=== PATIENT | female | born 1955 | race Caucasian/White ===

== ENCOUNTER → 2020-06-18 | Day surgery (SDC) | payer MEDICARE, OTHER ==
[2020-06-13 11:55] LABS: BASOPHILS % 0.4 % (0.0-1.0); EOSINOPHILS # (AUTO) 0.2 (0.0-0.4); EOSINOPHILS % 2.3 % (0.0-6.0); HEMATOCRIT 32.1 % (34.2-44.1); LYMPHOCYTES # (AUTO) 1.4 (1.0-3.2); LYMPHOCYTES % 18.1 % (18.0-39.1); MEAN CORPUSCULAR HEMOGLOBIN 29.4 pg (28-32); MEAN CORPUSCULAR HGB CONC 31.2 g/dL (31-35); MEAN CORPUSCULAR VOLUME 94.4 fL (81-99); MONOCYTES # (AUTO) 0.4 (0.2-0.8); MONOCYTES % 4.8 % (4.4-11.3); NEUTROPHILS # (AUTO) 5.7 (2.1-6.9); PLATELET COUNT 130 x10e3/uL (140-360); RED CELL DISTRIBUTION WIDTH 15.2 % (11.7-14.4)
[2020-06-13 12:12] LABS: CALCIUM 8.7 mg/dL (8.4-10.2); CREATININE, SERUM 2.32 mg/dL (0.57-1.11)
--- NOTE | 2020-06-13 13:15 | Diagnostic Imaging Report ---
EXAM: CHEST 2 VIEWS DATE: 06/13/2020 12:30 PM INDICATION: Preoperative evaluation COMPARISON: None FINDINGS: The trachea is midline. The lungs are symmetrically expanded without evidence for large focal consolidation, pneumothorax, or significant pleural effusion. The cardiomediastinal silhouette and pulmonary vasculature are within normal limits. Cervical fusion hardware noted. No acute osseous abnormality is identified. Multiple surgical clips noted overlying the left axilla. The surrounding soft tissues are unremarkable. IMPRESSION: No acute cardiopulmonary process identified. Signed by: Dr. Koby Chou MD on 06/13/2020 1:12 PM
--- NOTE | 2020-06-13 13:21 | Diagnostic Imaging Report ---
EXAM: ABDOMEN-1VIEW (KUB) DATE: 06/13/2020 12:30 PM INDICATION: Preoperative evaluation COMPARISON: None FINDINGS: Bowel gas pattern is nonobstructive. Bowel gas partially obscures renal shadows limiting evaluation. There is a 10 mm stone identified projecting over the mid/inferior left kidney. There are additional adjacent punctate calcific densities which may represent smaller renal calculi. Two calcific densities identified projecting over the right kidney measuring up to 6 mm likely reflecting renal calculi. No acute osseous abnormality is identified. IMPRESSION: Bilateral renal calculi as detailed above. Signed by: Dr. Koby Chou MD on 06/13/2020 1:17 PM
[~2020-06-18] MED LIST: ASPIRIN81 MG PO; B&O 60MG R/S 60 MG SUPP PR ONE; CITALOPRAM HBR20 MG PO; DIAZEPAM5 MG PO; FLUCONAZOLE 200 MG/100 ML 100 ML IV ONE; GENTAMICIN 80MG/NS 100 ML 100 ML IV ONE; GLIMEPIRIDE2 MG PO; INVOKANA PO; IOPAMIDOL 300MG/ML 50ML INFUS..BTL IV ONE; LEVEMIR FL100 UNIT/1 SC; LEVOTHYROXINE50 MCG PO; LIDOCAINE HCL 2% JELLY 5 ML TUBE ONE; LIDOCAINE HCL 2% LOCAL INJ 5 ML SDV VIAL INJ ONE; METFORMIN HCL500 MG PO; METOCLOPRAMIDE HCL 10 MG/2ML VIAL ONE; MIDAZOLAM HCL 2 MG/2 ML VIAL ONE; MULTI-VITAMIN1 EACH PO; ONDANSETRON HCL INJ 2MG/ML 2ML 2 MG/ML VIAL ONE; PROPOFOL IV EMULSION 10 MG/ML 20 ML VIAL ONE; SEVOFLURANE INHAL SOLN 250 ML PEN BTL ONE; SODIUM CHLORIDE 0.9% 50ML 50 ML ONE; ULTRAM50 MG PO
[2020-06-18 10:41] VITALS: BP 149/70
--- NOTE | 2020-06-18 23:23 | Operative Report ---
DATE OF PROCEDURE: 06/18/2020 SURGEON: Harshad Tucker MD PREOPERATIVE DIAGNOSES: 1. Nephrolithiasis. 2. Urinary tract infections. 3. Hematuria. 4. Chronic renal insufficiency. 5. Potential for left renal colic. POSTOPERATIVE DIAGNOSES: 1. Nephrolithiasis. 2. Urinary tract infections. 3. Hematuria. 4. Chronic renal insufficiency. 5. Potential for left renal colic. 6. Grade 1 cystocele. 7. Grade 1 rectocele. 8. Atrophic (senile) vaginitis. OPERATIONS PERFORMED: Note these were all staged procedures as part of multistep, multistaged broad process of managing the patient's urolithiasis. 1. Left-sided extracorporeal shockwave lithotripsy (separate procedure performed for the nephrolithiasis). 2. Cystourethroscopy with bilateral ureteral catheterization and retrograde ureteropyelography (separate procedure performed for hematuria and urinary tract infections and renal insufficiency). 3. Interpretation of retrograde ureteropyelography. 4. Supervision of fluoroscopy, no radiologist present. 5. Cystourethroscopy with insertion of left indwelling ureteral stent (separate procedure performed for relieving expected renal colic). 6. Pelvic examination under anesthesia. ANESTHESIA: General. COMPLICATIONS: None. CLINICAL SUMMARY: Keya Carrillo is a 64-year-old woman with bilateral nephrolithiasis. She has a large lower pole stone on the left hand side. She is brought for the above procedures. She is aware of the risks of bleeding, infection, injury to adjacent structures, need for additional procedures, and she elected to proceed. PROCEDURE IN DETAIL: Informed consent was verified. Keya Carrillo was properly identified, taken to the operating room, placed on the lithotripsy table in the supine position. Anesthesia was uneventfully begun. The patient's left nephrolithiasis was localized with biplanar fluoroscopy. A total of 3000 shocks were delivered with excellent fragmentation noted. The patient was then carefully and gently repositioned in the dorsal lithotomy position with all pressure points well padded. Her genitalia were prepared and draped in usual sterile fashion. The cystoscope sheath with obturator in place was atraumatically inserted into the patient's urethra and the bladder was drained. The urine was slightly cloudy and it was sent for a catheterized culture and sensitivity. A ureteral catheter was used to cannulate each ureter and retrograde ureteral pyelograms performed. With cystoscopic and fluoroscopic guidance, a left-sided indwelling ureteral stent was then placed. It was coiled to the patient's kidneys as well as the patient's bladder. The retaining suture was cut short. Interpretation of retrograde ureteropyelography, contrast was instilled in retrograde fashion bilaterally. On the right hand side, there were stones that we could visualize. These were not obstructing. There was no hydronephrosis. Left hand side exhibited a very large stone that was now fragmented. There were filling defects in the lower pole calyx. The stent was in good position, coiled to the patient's kidney as well as the patient's bladder at the end of the case. The patient's bladder was drained. Cystoscope was withdrawn. Pelvic examination revealed a grade 1 cystocele, grade 1 rectocele. There was atrophic (senile) vaginitis. No abnormal palpable pelvic masses could be appreciated. The patient was then uneventfully reversed from anesthesia and taken to recovery room in stable condition. There were no complications to the procedure. She tolerated the procedure well. Plans will be to return the patient to the operating room in several weeks to perform right extracorporeal shockwave lithotripsy in conjunction with a left ureteroscopy with holmium laser standby. Harshad Tucker MD [place]/MODL /[id number] cc: Agustin Salcido MD
== END | disposition home or self-care (01) ==
LOC: OR 05:59
PROVIDERS: ATTEND Urology
DX: N20.0 Calculus of kidney (principal); N39.0 Urinary tract infection, site not specified; E11.22 Type 2 diabetes mellitus with diabetic chronic kidney disease; I12.9 Hypertensive chronic kidney disease with stage 1 through stage 4 chronic kidney disease, or unspecified chronic kidney disease; N18.9 Chronic kidney disease, unspecified; N81.10 Cystocele, unspecified; N81.6 Rectocele; N95.2 Postmenopausal atrophic vaginitis; E03.9 Hypothyroidism, unspecified; E66.9 Obesity, unspecified; F32.9 Major depressive disorder, single episode, unspecified; F41.9 Anxiety disorder, unspecified; Z88.6 Allergy status to analgesic agent; Z88.1 Allergy status to other antibiotic agents; Z88.0 Allergy status to penicillin; Z01.810 Encounter for preprocedural cardiovascular examination; Z01.812 Encounter for preprocedural laboratory examination; Z01.818 Encounter for other preprocedural examination; Z11.59 Encounter for screening for other viral diseases; Z79.4 Long term (current) use of insulin; Z79.82 Long term (current) use of aspirin; Z79.84 Long term (current) use of oral hypoglycemic drugs; Z85.3 Personal history of malignant neoplasm of breast; Z87.891 Personal history of nicotine dependence
CPT/HCPCS: 36415; 50590; 71046; 74018; 80048; 82948; 85025; 87086; 93005; C1758; C2617; J1450; J1580; J2001; J2250; J2405; J2765; U0002

== ENCOUNTER → 2020-08-15 | Day surgery (SDC) | payer MEDICARE, OTHER ==
[2020-08-12 16:04] LABS: BASOPHILS % 0.3 % (0.0-1.0); EOSINOPHILS # (AUTO) 0.1 (0.0-0.4); EOSINOPHILS % 2.1 % (0.0-6.0); HEMATOCRIT 28.6 % (34.2-44.1); HEMOGLOBIN 8.8 g/dL (12.0-16.0); LYMPHOCYTES # (AUTO) 1.6 (1.0-3.2); LYMPHOCYTES % 24.6 % (18.0-39.1); MEAN CORPUSCULAR HEMOGLOBIN 28.9 pg (28-32); MEAN CORPUSCULAR HGB CONC 30.8 g/dL (31-35); MEAN CORPUSCULAR VOLUME 93.8 fL (81-99); MONOCYTES # (AUTO) 0.3 (0.2-0.8); MONOCYTES % 5.4 % (4.4-11.3); NEUTROPHILS # (AUTO) 4.3 (2.1-6.9); NEUTROPHILS % 67.4 % (38.7-80.0); PLATELET COUNT 161 x10e3/uL (140-360); RED BLOOD COUNT 3.05 x10e6/uL (3.6-5.1); RED CELL DISTRIBUTION WIDTH 15.9 % (11.7-14.4)
[2020-08-12 16:30] LABS: ANION GAP 12.6 mmol/L (8-16); CALCIUM 8.3 mg/dL (8.4-10.2); CREATININE, SERUM 3.39 mg/dL (0.57-1.11); POTASSIUM 3.6 mmol/L (3.5-5.1)
[~2020-08-15] MED LIST changes: +DEXAMETHASONE SOD PHOS INJ 4 MG/ML VIAL ONE; +FENTANYL CITRATE/PF 100MCG/2 ML INJ ONE; -FLUCONAZOLE 200 MG/100 ML 100 ML IV ONE; -GENTAMICIN 80MG/NS 100 ML 100 ML IV ONE; +GENTAMICIN 80MG/NS 100 ML 200 ML IV ONE; -LIDOCAINE HCL 2% JELLY 5 ML TUBE ONE; +OXYBUTYNIN CHLOR5 MG PO; -SODIUM CHLORIDE 0.9% 50ML 50 ML ONE; +[UNRECOGNIZED DRUG - CODE]
[2020-08-15 10:15] VITALS: BP 124/64
== END | disposition home or self-care (01) ==
LOC: OR 06:06
PROVIDERS: ATTEND Urology
DX: N20.0 Calculus of kidney (principal); N17.9 Acute kidney failure, unspecified; E11.22 Type 2 diabetes mellitus with diabetic chronic kidney disease; I12.9 Hypertensive chronic kidney disease with stage 1 through stage 4 chronic kidney disease, or unspecified chronic kidney disease; N18.9 Chronic kidney disease, unspecified; N13.8 Other obstructive and reflux uropathy; N13.30 Unspecified hydronephrosis; N81.89 Other female genital prolapse; N81.10 Cystocele, unspecified; N81.6 Rectocele; N95.2 Postmenopausal atrophic vaginitis; R80.9 Proteinuria, unspecified; R35.1 Nocturia; I49.3 Ventricular premature depolarization; K21.9 Gastro-esophageal reflux disease without esophagitis; E66.9 Obesity, unspecified; Z88.6 Allergy status to analgesic agent; Z88.1 Allergy status to other antibiotic agents; Z88.0 Allergy status to penicillin; Z01.812 Encounter for preprocedural laboratory examination; Z01.818 Encounter for other preprocedural examination; Z11.59 Encounter for screening for other viral diseases; Z79.84 Long term (current) use of oral hypoglycemic drugs; Z79.82 Long term (current) use of aspirin; Z79.4 Long term (current) use of insulin; Z68.41 Body mass index [BMI] 40.0-44.9, adult; Z84.1 Family history of disorders of kidney and ureter
CPT/HCPCS: 36415 ×2; 50590; 52332; 52351; 74018; 80048; 82948; 85025; 87086; C1758; C1769; C2617; J1100; J1580; J2001; J2250; J2405; J2704; J2765; J3010; Q9967; U0002

== ENCOUNTER → 2020-09-19 | Day surgery (SDC) | payer MEDICARE ==
[2020-09-16 14:32] LABS: BASOPHILS % 0.2 % (0.0-1.0); EOSINOPHILS % 0.5 % (0.0-6.0); HEMATOCRIT 29.5 % (34.2-44.1); HEMOGLOBIN 9.3 g/dL (12.0-16.0); LYMPHOCYTES # (AUTO) 1.2 (1.0-3.2); MEAN CORPUSCULAR HEMOGLOBIN 28.2 pg (28-32); MEAN CORPUSCULAR HGB CONC 31.5 g/dL (31-35); MEAN CORPUSCULAR VOLUME 89.4 fL (81-99); MONOCYTES # (AUTO) 0.4 (0.2-0.8); MONOCYTES % 4.3 % (4.4-11.3); NEUTROPHILS % 80.8 % (38.7-80.0); PLATELET COUNT 231 x10e3/uL (140-360); RED CELL DISTRIBUTION WIDTH 15.7 % (11.7-14.4)
[2020-09-16 14:49] LABS: ANION GAP 14.4 mmol/L (8-16); CALCIUM 8.7 mg/dL (8.4-10.2); CREATININE, SERUM 4.59 mg/dL (0.57-1.11); POTASSIUM 3.4 mmol/L (3.5-5.1)
[~2020-09-19] MED LIST changes: +FLUCONAZOLE 200 MG/100 ML 100 ML IV ONE; +GENTAMICIN 80MG/NS 100 ML 100 ML IV ONE; -GENTAMICIN 80MG/NS 100 ML 200 ML IV ONE; +GLYCOPYRROLATE INJ 0.2 MG/ML VIAL ONE; +INSULIN REGULAR, HUMAN 100 UNIT/1 ML 3ML VIAL ONE; -METOCLOPRAMIDE HCL 10 MG/2ML VIAL ONE; +NEOSTIGMINE 1 MG/ML 10ML VIAL ONE; +ROCURONIUM BROMIDE 10 MG/ML 5ML VIAL IV ONE; +SUCCINYLCHOLINE CHLORIDE 20 MG/ML 10ML VIAL ONE; +VANCOMYCIN 1GM/NS 250 ML 250 ML ONE
--- NOTE | 2020-09-19 16:52 | Diagnostic Imaging Report ---
OR Fluoroscopy: IMPRESSION: Fluoroscopy service provided in the OR. Interpretation not requested. Signed by: Max Camacho MD on 09/19/2020 4:49 PM
[2020-09-19 17:40] VITALS: BP 130/78
--- NOTE | 2020-09-20 17:23 | Operative Report ---
DATE OF PROCEDURE: 09/19/2020 SURGEON: Harshad Tucker MD PREOPERATIVE DIAGNOSES: 1. Bilateral hydronephrosis. 2. Bilateral indwelling ureteral stents. POSTOPERATIVE DIAGNOSES: 1. Bilateral hydronephrosis. 2. Bilateral indwelling ureteral stents. 3. Grade 1 cystocele. 4. Grade 1 rectocele. 5. Atrophic (senile) vaginitis. OPERATIONS PERFORMED: Note these were all staged procedures as part of multi-staged and multi-step process of managing the patient's urolithiasis: 1. Cystourethroscopy with complicated removal of bilateral indwelling ureteral stents (separate procedure performed for the diagnosis of stents done with separate scope). 2. Bilateral semi-rigid and flexible ureteral pyeloscopy (separate procedure performed to evaluate the hydronephrosis). 3. Radiological services for supervision and interpretation of ureteroscopy, no radiologist present. 4. Interpretation of retrograde ureteropyelography, no radiologist present. 5. Supervision of fluoroscopy, no radiologist present. 6. Pelvic examination under anesthesia. ANESTHESIA: General. COMPLICATIONS: None. CLINICAL SUMMARY: Keya Carrillo is a 65-year-old woman with prior urolithiasis and indwelling stents. She has had progressive renal failure. She has had urinary tract infection and she has been on culture specific antibiotics. She was brought for the above procedures. She is aware of the risks of bleeding, infection, injury to adjacent structures, need for additional procedures, and elected to proceed. OPERATIVE PROCEDURE IN DETAIL: Informed consent verified. Keya Carrillo was properly identified, taken to the operating room, placed on the cystoscopy table in supine position. Anesthesia was uneventfully begun. The patient was then carefully gently repositioned in dorsal lithotomy position. All pressure points were well padded. Her genitalia were prepared and draped in usual sterile fashion. The cystoscope sheath with obturator in place was atraumatically inserted into the patient's urethra and the bladder was drained, it contained cloudy urine and this was sent for culture and sensitivity. Panendoscopy of the bladder revealed mild inflammation. There was cloudy material within the bladder consistent with Ronel. Stents were noted to be emerging from both ureteral orifices, there were no stones and there were no suspicious lesions. A guidewire was then placed into the right ureter and guided to the level of the patient's kidney. The stent was then grasped completely, removed and discarded. Semi-rigid ureteroscopy was then performed. The ureteroscope was brought up into the distal ureter. There were no stones, no strictures, no suspicious lesions. Contrast was injected. Flexible ureteroscope was then brought up over the guidewire and guided at the level of the patient's kidney. Panendoscopy with intrarenal collecting system revealed spacious hydronephrotic renal cyst collecting system, that exhibited cloudy urine that had whitish color to it consistent with a candidal yeast infection. No suspicious lesions. There were no stones. Vikas's plaques were identified. We carefully examined the ureters. We exited and did not exhibit any strictures, nor any stones, nor any diverticula. An identical set of procedures performed left hand side with identical findings. Interpretation of retrograde ureteropyelography contrast was instilled in retrograde fashion bilaterally by the ureteroscope. There was bilateral hydroureteronephrosis with bilateral ureteral tortuosity was worse on the right-hand side. This is consistent with long-standing reflux up the stents, that could be consistent with a bladder outlet obstruction causing retention with retrograde flow of urine, it seems like unobstructed drainage was observed fluoroscopically and there were no obvious filling defects. The cystoscope was withdrawn. A Rosas catheter was placed, it was irrigated to and fro to ensure it worked properly. Pelvic examination under anesthesia revealed a grade 1 cystocele, grade 1 rectocele, there was atrophic (senile) vaginitis. No obvious mucosal lesions were identified. There were no abnormal palpable pelvic masses could be appreciated with of course the limitations of the patient's large body habitus. The patient was then uneventfully reversed from anesthesia and taken to recovery room in stable condition. There were no complications of the procedure. She tolerated the procedure well. Plans will be to follow the patient up in the office to evaluate her voiding function with a urodynamic study. At that point in time, we will see where the patient retained urine, also that point in time, we can recheck the patient's renal function. I instructed the patient to follow up with the primary care physician and obtain referral to a solar sales ambassador. The patient has had progressive renal failure and Renal should probably be involved in her case. Diflucan was also prescribed for the patient. She has Bactrim taken as outpatient and she was instructed to decrease that to a once daily dose. Harshad MD RENITA Tucker/TYRONE /[id number] cc: Agustin Salcido MD
== END | disposition home or self-care (01) ==
LOC: OR 13:01
PROVIDERS: ATTEND Urology
DX: N13.30 Unspecified hydronephrosis (principal); Z46.6 Encounter for fitting and adjustment of urinary device; N81.10 Cystocele, unspecified; N81.6 Rectocele; N95.2 Postmenopausal atrophic vaginitis; N13.8 Other obstructive and reflux uropathy; N28.89 Other specified disorders of kidney and ureter; N81.89 Other female genital prolapse; R80.9 Proteinuria, unspecified; R35.1 Nocturia; R33.9 Retention of urine, unspecified; E11.22 Type 2 diabetes mellitus with diabetic chronic kidney disease; I12.9 Hypertensive chronic kidney disease with stage 1 through stage 4 chronic kidney disease, or unspecified chronic kidney disease; N18.9 Chronic kidney disease, unspecified; E66.9 Obesity, unspecified; Z01.810 Encounter for preprocedural cardiovascular examination; Z01.812 Encounter for preprocedural laboratory examination; Z20.828 Contact with and (suspected) exposure to other viral communicable diseases; Z79.82 Long term (current) use of aspirin; Z79.4 Long term (current) use of insulin; Z68.39 Body mass index [BMI] 39.0-39.9, adult; Z85.3 Personal history of malignant neoplasm of breast; Z92.3 Personal history of irradiation; Z92.21 Personal history of antineoplastic chemotherapy; Z80.52 Family history of malignant neoplasm of bladder; Z84.1 Family history of disorders of kidney and ureter
CPT/HCPCS: 36415 ×2; 52351; 74420; 80048; 82948; 84295; 85025; 87086; 93005; C1769; J0330; J1100; J1450; J1580; J2001; J2250; J2405; J2704; J2710; J3010; J3370; Q9967; U0002; J1817

== ENCOUNTER 2020-10-28 15:54 | Inpatient (IN) | payer MEDICARE ==
[~2020-10-28] VITALS: Ht 175.3 cm; Wt 122.5 kg
[~2020-10-28 15:54] MED LIST changes: -B&O 60MG R/S 60 MG SUPP PR ONE; -DEXAMETHASONE SOD PHOS INJ 4 MG/ML VIAL ONE; -FENTANYL CITRATE/PF 100MCG/2 ML INJ ONE; -FLUCONAZOLE 200 MG/100 ML 100 ML IV ONE; -GENTAMICIN 80MG/NS 100 ML 100 ML IV ONE; +GLUCAGON FOR INJ 1 MG VIAL ONE; -GLYCOPYRROLATE INJ 0.2 MG/ML VIAL ONE; -INSULIN REGULAR, HUMAN 100 UNIT/1 ML 3ML VIAL ONE; -IOPAMIDOL 300MG/ML 50ML INFUS..BTL IV ONE; -LIDOCAINE HCL 2% LOCAL INJ 5 ML SDV VIAL INJ ONE; -MIDAZOLAM HCL 2 MG/2 ML VIAL ONE; -NEOSTIGMINE 1 MG/ML 10ML VIAL ONE; -ONDANSETRON HCL INJ 2MG/ML 2ML 2 MG/ML VIAL ONE; -PROPOFOL IV EMULSION 10 MG/ML 20 ML VIAL ONE; -ROCURONIUM BROMIDE 10 MG/ML 5ML VIAL IV ONE; -SEVOFLURANE INHAL SOLN 250 ML PEN BTL ONE; -SUCCINYLCHOLINE CHLORIDE 20 MG/ML 10ML VIAL ONE; -VANCOMYCIN 1GM/NS 250 ML 250 ML ONE
[2020-10-28 17:26] LABS: BASOPHILS % 0.1 % (0.0-1.0); EOSINOPHILS % 0.1 % (0.0-6.0); LYMPHOCYTES # (AUTO) 1.3 (1.0-3.2); LYMPHOCYTES % 19.7 % (18.0-39.1); MEAN CORPUSCULAR HEMOGLOBIN 28.6 pg (28-32); MEAN CORPUSCULAR HGB CONC 31.1 g/dL (31-35); MEAN CORPUSCULAR VOLUME 91.8 fL (81-99); MONOCYTES # (AUTO) 0.3 (0.2-0.8); MONOCYTES % 5.1 % (4.4-11.3); NEUTROPHILS % 74.6 % (38.7-80.0); PLATELET COUNT 152 x10e3/uL (140-360); RED BLOOD COUNT 2.45 x10e6/uL (3.6-5.1); RED CELL DISTRIBUTION WIDTH 17.7 % (11.7-14.4)
[2020-10-28 17:28] LABS: HEMATOCRIT 22.5 % (34.2-44.1)
[2020-10-28 17:49] LABS: ALBUMIN 2.1 g/dL (3.5-5.0); ALBUMIN/GLOBULIN RATIO 0.5 (0.8-2.0); ANION GAP 15.9 mmol/L (8-16); CALCIUM 7.7 mg/dL (8.4-10.2); CREATININE, SERUM 7.65 mg/dL (0.57-1.11)
[2020-10-28 17:51] LABS: POTASSIUM 2.9 mmol/L (3.5-5.1)
[2020-10-28] MEDS ORDERED: SODIUM CHLORIDE FLUSH 10 ML SYR INJ PRN (18:15)
[2020-10-28 18:42] LABS: CLARITY,URINE TURBID (CLEAR); COLOR,URINE OTHER (YELLOW); KETONES,URINE NEGATIVE (NEGATIVE); LEUKOCYTE ESTERASE ,URINE LARGE (NEGATIVE); NITRITE,URINE NEGATIVE (NEGATIVE); PROTEIN,URINE DIPSTICK 2+ (NEGATIVE); URINE UROBILINOGEN 0.2 mg/dL (0.2 - 1)
[2020-10-28 18:54] LABS: BACTERIA,URINE MANY /HPF; WBC,URINE (MAN) >50 /HPF (0-5)
[2020-10-28 21:15] VITALS: BP 106/53
[2020-10-28 21:25] VITALS: BP 106/53
[2020-10-28 22:19] VITALS: BP 106/53
[2020-10-28] MEDS ORDERED: OXYBUTYNIN CHLORIDE 5 MG TAB PO PRN (22:45)
[2020-10-29] VITALS (8 sets, daily range): BP systolic 110–124; BP diastolic 48–67
[2020-10-29] MEDS: LEVOTHYROXINE SODIUM 50 MCG TAB PO SCH (04:59)
[2020-10-29 06:18] LABS: BASOPHILS % 0.3 % (0.0-1.0); EOSINOPHILS % 0.6 % (0.0-6.0); LYMPHOCYTES # (AUTO) 1.2 (1.0-3.2); LYMPHOCYTES % 19.1 % (18.0-39.1); MEAN CORPUSCULAR HEMOGLOBIN 29.4 pg (28-32); MEAN CORPUSCULAR VOLUME 91.7 fL (81-99); MONOCYTES # (AUTO) 0.4 (0.2-0.8); MONOCYTES % 5.9 % (4.4-11.3); NEUTROPHILS # (AUTO) 4.7 (2.1-6.9); NEUTROPHILS % 73.5 % (38.7-80.0); PLATELET COUNT 150 x10e3/uL (140-360); RED BLOOD COUNT 2.18 x10e6/uL (3.6-5.1); RED CELL DISTRIBUTION WIDTH 17.6 % (11.7-14.4)
[2020-10-29 06:31] LABS: HEMOGLOBIN 6.4 g/dL (12.0-16.0)
[2020-10-29 06:43] LABS: ALBUMIN 1.8 g/dL (3.5-5.0); ALBUMIN/GLOBULIN RATIO 0.5 (0.8-2.0); CALCIUM 7.5 mg/dL (8.4-10.2); CREATININE, SERUM 7.88 mg/dL (0.57-1.11)
[2020-10-29] MEDS ORDERED: SODIUM CHLORIDE 0.9% 250ML 250 ML IV SCH ×2 (07:00→13:00)
[2020-10-29] MEDS: ASPIRIN 81 MG CHEW TAB PO SCH (08:32)
[2020-10-29] MEDS: SODIUM BICARBONATE 650 MG TAB PO SCH ×2 (08:33→17:20)
[2020-10-29] MEDS: MULTIVITAMINS/MINERALS TAB PO SCH (08:33)
[2020-10-29] MEDS: CITALOPRAM HYDROBROMIDE 20 MG TAB PO SCH (08:33)
[2020-10-29] MEDS: INSULIN GLARGINE 100 UNITS/ML VIAL SQ SCH ×2 (09:00→21:15)
[2020-10-29] MEDS ORDERED: NITROFURANTOIN MACROCRYSTALS 100 MG CAP PO SCH ×2 (09:00→17:00)
[2020-10-29] MEDS ORDERED: HEPARIN SOD (PORCINE) 1000 UNIT/ML SDV ONE (11:28)
[2020-10-29] MEDS ORDERED: SODIUM CHLORIDE 0.9% 1000ML 2,000 ML ONE (12:08)
[2020-10-29] MEDS ORDERED: MANNITOL 25% 12.5GM/50 ML VIAL IV PRN (12:45)
[2020-10-29] MEDS ORDERED: SODIUM CHLORIDE 0.9% 1000ML 2,000 ML IV PRN (12:45)
[2020-10-29] MEDS ORDERED: HEPARIN SOD (PORCINE) 1000 UNIT/ML SDV IV PRN (12:45)
[2020-10-29 12:50] LABS: FERRITIN 224.48 ng/mL (4.63-204.00)
[2020-10-29] MEDS: ONDANSETRON HCL INJ 2MG/ML 2ML 2 MG/ML VIAL IV PRN ×2 (16:38→21:15)
[2020-10-29] MEDS: NITROFURANTOIN 50 MG CAP PO SCH (18:25)
[2020-10-30] VITALS (8 sets, daily range): BP systolic 108–125; BP diastolic 53–67
[2020-10-30] MEDS: PANTOPRAZOLE 40 MG 10ML VIAL IV SCH ×3 (03:00→23:06)
[2020-10-30] MEDS: LEVOTHYROXINE SODIUM 50 MCG TAB PO SCH (05:37)
[2020-10-30 05:49] LABS: BASOPHILS % 0.2 % (0.0-1.0); EOSINOPHILS % 0.1 % (0.0-6.0); HEMATOCRIT 29.8 % (34.2-44.1); HEMOGLOBIN 9.8 g/dL (12.0-16.0); LYMPHOCYTES % 12.9 % (18.0-39.1); MEAN CORPUSCULAR HEMOGLOBIN 28.5 pg (28-32); MEAN CORPUSCULAR HGB CONC 32.9 g/dL (31-35); MEAN CORPUSCULAR VOLUME 86.6 fL (81-99); MONOCYTES # (AUTO) 0.5 (0.2-0.8); MONOCYTES % 5.7 % (4.4-11.3); NEUTROPHILS # (AUTO) 6.5 (2.1-6.9); NEUTROPHILS % 80.7 % (38.7-80.0); PLATELET COUNT 166 x10e3/uL (140-360); RED BLOOD COUNT 3.44 x10e6/uL (3.6-5.1); RED CELL DISTRIBUTION WIDTH 16.3 % (11.7-14.4)
[2020-10-30 06:05] LABS: INR 1.11; PROTHROMBIN TIME 14.9 seconds (11.9-14.5)
[2020-10-30 06:15] LABS: ALBUMIN/GLOBULIN RATIO 0.5 (0.8-2.0); ANION GAP 16.4 mmol/L (8-16); CALCIUM 7.6 mg/dL (8.4-10.2); CREATININE, SERUM 5.75 mg/dL (0.57-1.11)
[2020-10-30 06:17] LABS: POTASSIUM 2.4 mmol/L (3.5-5.1)
[2020-10-30] MEDS ORDERED: POTASSIUM CHLORIDE 20 MEQ TAB CR PO ONE ×2 (07:00→09:00)
[2020-10-30] MEDS: SODIUM BICARBONATE 650 MG TAB PO SCH ×2 (08:56→17:37)
[2020-10-30] MEDS: NITROFURANTOIN 50 MG CAP PO SCH ×2 (08:56→17:37)
[2020-10-30] MEDS: ASPIRIN 81 MG CHEW TAB PO SCH (08:56)
[2020-10-30] MEDS: MULTIVITAMINS/MINERALS TAB PO SCH (08:56)
[2020-10-30] MEDS: CITALOPRAM HYDROBROMIDE 20 MG TAB PO SCH (08:56)
[2020-10-30] MEDS ORDERED: IRON SUCROSE 100 MG in SODIUM CHLORIDE 0.9% 100 ML 100 ML IV SCH (09:00)
[2020-10-30] MEDS: INSULIN GLARGINE 100 UNITS/ML VIAL SQ SCH ×2 (09:02→21:00)
[2020-10-30] MEDS ORDERED: METOCLOPRAMIDE HCL 10 MG/2ML VIAL ONE (12:15)
[2020-10-30] MEDS ORDERED: PROPOFOL IV EMULSION 10 MG/ML 20 ML VIAL ONE (12:15)
[2020-10-30] MEDS ORDERED: LIDOCAINE HCL 2% LOCAL INJ 5 ML SDV VIAL INJ ONE (12:15)
[2020-10-30] MEDS ORDERED: SODIUM CHLORIDE 0.9% 500ML 500 ML ONE (16:37)
[2020-10-30] MEDS ORDERED: SODIUM CHLORIDE 0.9% 250ML 250 ML ONE (17:28)
[2020-10-30] MEDS ORDERED: PHYTONADIONE 10 MG/ML AMP SQ ONE (17:35)
[2020-10-30] MEDS: IRON SUCROSE 100 MG in SODIUM CHLORIDE 0.9% 100 ML 100 ML IV SCH (17:37)
[2020-10-30] MEDS ORDERED: B&O 60MG R/S 60 MG SUPP PR PRN (20:00)
[2020-10-30] MEDS ORDERED: LORAZEPAM INJ 2 MG/ML VIAL IV ONE ×2 (20:00→23:30)
[2020-10-30] MEDS: ONDANSETRON HCL INJ 2MG/ML 2ML 2 MG/ML VIAL IV PRN (23:06)
[2020-10-30] MEDS: SUCRALFATE 1 GM TAB PO SCH (23:06)
[2020-10-30] MEDS ORDERED: LORAZEPAM INJ 2 MG/ML VIAL ONE ×2 (23:09→23:35)
[2020-10-30] MEDS ORDERED: DIPHENHYDRAMINE HCL INJ 50 MG/ML VIAL IV ONE (23:30)
[2020-10-30] MEDS ORDERED: DIPHENHYDRAMINE HCL INJ 50 MG/ML VIAL ONE (23:35)
[2020-10-31] VITALS (8 sets, daily range): BP systolic 105–124; BP diastolic 52–65
[2020-10-31] MEDS ORDERED: LORAZEPAM INJ 2 MG/ML VIAL IV PRN ×2 (00:30)
[2020-10-31] MEDS: LEVOTHYROXINE SODIUM 50 MCG TAB PO SCH (06:17)
[2020-10-31] MEDS: SODIUM BICARBONATE 650 MG TAB PO SCH ×2 (10:15→17:22)
[2020-10-31] MEDS: INSULIN GLARGINE 100 UNITS/ML VIAL SQ SCH ×2 (10:15→21:02)
[2020-10-31] MEDS: SUCRALFATE 1 GM TAB PO SCH ×4 (10:15→20:26)
[2020-10-31] MEDS: NITROFURANTOIN 50 MG CAP PO SCH ×2 (10:15→17:22)
[2020-10-31] MEDS: ASPIRIN 81 MG CHEW TAB PO SCH (10:15)
[2020-10-31] MEDS: MULTIVITAMINS/MINERALS TAB PO SCH (10:15)
[2020-10-31] MEDS: CITALOPRAM HYDROBROMIDE 20 MG TAB PO SCH (10:15)
[2020-10-31] MEDS: PANTOPRAZOLE 40 MG 10ML VIAL IV SCH (14:46)
[2020-10-31] MEDS: IRON SUCROSE 100 MG in SODIUM CHLORIDE 0.9% 100 ML 100 ML IV SCH (17:22)
[2020-11-01] VITALS (8 sets, daily range): BP systolic 103–125; BP diastolic 51–72
[2020-11-01] MEDS: PANTOPRAZOLE 40 MG 10ML VIAL IV SCH ×2 (02:29→15:35)
[2020-11-01] MEDS: LEVOTHYROXINE SODIUM 50 MCG TAB PO SCH (05:37)
[2020-11-01] MEDS: SUCRALFATE 1 GM TAB PO SCH ×5 (07:30→21:05)
[2020-11-01 07:39] LABS: ANION GAP 14.4 mmol/L (8-16); CALCIUM 7.5 mg/dL (8.4-10.2); CREATININE, SERUM 5.42 mg/dL (0.57-1.11)
[2020-11-01 07:43] LABS: POTASSIUM 2.4 mmol/L (3.5-5.1)
[2020-11-01] MEDS ORDERED: POTASSIUM CHLORIDE 20MEQ/100ML 100 ML IV ONE (07:45)
[2020-11-01 08:28] LABS: BASOPHILS % 0.2 % (0.0-1.0); HEMATOCRIT 26.7 % (34.2-44.1); HEMOGLOBIN 8.7 g/dL (12.0-16.0); LYMPHOCYTES # (AUTO) 1.1 (1.0-3.2); LYMPHOCYTES % 6.8 % (18.0-39.1); MEAN CORPUSCULAR HEMOGLOBIN 29.1 pg (28-32); MEAN CORPUSCULAR HGB CONC 32.6 g/dL (31-35); MEAN CORPUSCULAR VOLUME 89.3 fL (81-99); MONOCYTES # (AUTO) 0.7 (0.2-0.8); MONOCYTES % 4.1 % (4.4-11.3); NEUTROPHILS # (AUTO) 14.3 (2.1-6.9); NEUTROPHILS % 88.2 % (38.7-80.0); PLATELET COUNT 129 x10e3/uL (140-360); RED BLOOD COUNT 2.99 x10e6/uL (3.6-5.1)
[2020-11-01] MEDS: INSULIN GLARGINE 100 UNITS/ML VIAL SQ SCH ×2 (09:00→21:09)
[2020-11-01] MEDS ORDERED: POTASSIUM CHLORIDE 20MEQ/100ML 100 ML IV SCH (10:00)
[2020-11-01] MEDS: NITROFURANTOIN 50 MG CAP PO SCH ×2 (10:47→17:07)
[2020-11-01] MEDS: ASPIRIN 81 MG CHEW TAB PO SCH (10:47)
[2020-11-01] MEDS: CITALOPRAM HYDROBROMIDE 20 MG TAB PO SCH (10:47)
[2020-11-01] MEDS: MULTIVITAMINS/MINERALS TAB PO SCH (10:49)
[2020-11-01] MEDS: SODIUM BICARBONATE 650 MG TAB PO SCH ×2 (10:49→17:13)
[2020-11-01] MEDS: IRON SUCROSE 100 MG in SODIUM CHLORIDE 0.9% 100 ML 100 ML IV SCH (17:07)
[2020-11-01] MEDS ORDERED: ACETAMINOPHEN 325 MG TAB PO PRN (21:00)
[2020-11-02] VITALS (7 sets, daily range): BP systolic 90–117; BP diastolic 50–59
[2020-11-02] MEDS: PANTOPRAZOLE 40 MG 10ML VIAL IV SCH ×2 (02:57→14:00)
[2020-11-02] MEDS: LEVOTHYROXINE SODIUM 50 MCG TAB PO SCH (06:28)
[2020-11-02 06:47] LABS: BASOPHILS % 0.2 % (0.0-1.0); EOSINOPHILS % 0.1 % (0.0-6.0); HEMATOCRIT 25.3 % (34.2-44.1); HEMOGLOBIN 8.2 g/dL (12.0-16.0); LYMPHOCYTES % 7.1 % (18.0-39.1); MEAN CORPUSCULAR HGB CONC 32.4 g/dL (31-35); MEAN CORPUSCULAR VOLUME 89.4 fL (81-99); MONOCYTES # (AUTO) 0.6 (0.2-0.8); MONOCYTES % 4.4 % (4.4-11.3); NEUTROPHILS # (AUTO) 12.7 (2.1-6.9); NEUTROPHILS % 87.4 % (38.7-80.0); PLATELET COUNT 99 x10e3/uL (140-360); RED BLOOD COUNT 2.83 x10e6/uL (3.6-5.1); RED CELL DISTRIBUTION WIDTH 16.4 % (11.7-14.4)
[2020-11-02] MEDS: SUCRALFATE 1 GM TAB PO SCH ×4 (07:30→21:49)
[2020-11-02 07:36] LABS: ANION GAP 16.5 mmol/L (8-16); CALCIUM 7.3 mg/dL (8.4-10.2); CREATININE, SERUM 6.43 mg/dL (0.57-1.11)
[2020-11-02 07:45] LABS: POTASSIUM 2.5 mmol/L (3.5-5.1)
[2020-11-02] MEDS: INSULIN GLARGINE 100 UNITS/ML VIAL SQ SCH ×2 (09:00→22:13)
[2020-11-02] MEDS: CITALOPRAM HYDROBROMIDE 20 MG TAB PO SCH (10:30)
[2020-11-02] MEDS: SODIUM BICARBONATE 650 MG TAB PO SCH ×2 (10:30→17:45)
[2020-11-02] MEDS: MULTIVITAMINS/MINERALS TAB PO SCH (10:30)
[2020-11-02] MEDS: ASPIRIN 81 MG CHEW TAB PO SCH (10:30)
[2020-11-02] MEDS: NITROFURANTOIN 50 MG CAP PO SCH ×2 (10:30→17:45)
[2020-11-02] MEDS ORDERED: POTASSIUM CHLORIDE 10MEQ EA PO ONE (12:30)
[2020-11-02] MEDS: IRON SUCROSE 100 MG in SODIUM CHLORIDE 0.9% 100 ML 100 ML IV SCH (17:45)
[2020-11-03] VITALS (10 sets, daily range): BP systolic 90–114; BP diastolic 47–61
[2020-11-03] MEDS: PANTOPRAZOLE 40 MG 10ML VIAL IV SCH ×2 (02:00→17:28)
[2020-11-03] MEDS: LEVOTHYROXINE SODIUM 50 MCG TAB PO SCH (05:32)
[2020-11-03 06:08] LABS: BASOPHILS % 0.1 % (0.0-1.0); EOSINOPHILS # (AUTO) 0.1 (0.0-0.4); EOSINOPHILS % 0.6 % (0.0-6.0); HEMATOCRIT 23.7 % (34.2-44.1); HEMOGLOBIN 7.5 g/dL (12.0-16.0); LYMPHOCYTES # (AUTO) 0.9 (1.0-3.2); LYMPHOCYTES % 10.3 % (18.0-39.1); MEAN CORPUSCULAR HEMOGLOBIN 28.2 pg (28-32); MEAN CORPUSCULAR HGB CONC 31.6 g/dL (31-35); MEAN CORPUSCULAR VOLUME 89.1 fL (81-99); MONOCYTES # (AUTO) 0.5 (0.2-0.8); MONOCYTES % 5.7 % (4.4-11.3); NEUTROPHILS # (AUTO) 6.8 (2.1-6.9); NEUTROPHILS % 82.7 % (38.7-80.0); PLATELET COUNT 92 x10e3/uL (140-360); RED BLOOD COUNT 2.66 x10e6/uL (3.6-5.1); RED CELL DISTRIBUTION WIDTH 16.7 % (11.7-14.4)
[2020-11-03 06:29] LABS: ALBUMIN 1.3 g/dL (3.5-5.0); ALBUMIN/GLOBULIN RATIO 0.3 (0.8-2.0); ANION GAP 12.5 mmol/L (8-16); CALCIUM 7.5 mg/dL (8.4-10.2); CREATININE, SERUM 4.55 mg/dL (0.57-1.11); MAGNESIUM 1.4 MG/DL (1.3-2.1)
[2020-11-03 06:40] LABS: POTASSIUM 2.5 mmol/L (3.5-5.1)
[2020-11-03] MEDS: SUCRALFATE 1 GM TAB PO SCH ×4 (07:30→21:22)
[2020-11-03] MEDS: INSULIN GLARGINE 100 UNITS/ML VIAL SQ SCH ×2 (09:00→21:00)
[2020-11-03] MEDS: CITALOPRAM HYDROBROMIDE 20 MG TAB PO SCH (09:00)
[2020-11-03] MEDS: MULTIVITAMINS/MINERALS TAB PO SCH (09:00)
[2020-11-03] MEDS: SODIUM BICARBONATE 650 MG TAB PO SCH ×2 (09:00→17:28)
[2020-11-03] MEDS: ASPIRIN 81 MG CHEW TAB PO SCH (09:00)
[2020-11-03] MEDS: NITROFURANTOIN 50 MG CAP PO SCH ×2 (09:00→17:28)
[2020-11-03] MEDS ORDERED: POTASSIUM CHLORIDE 20MEQ/100ML 200 ML IV ONE (12:30)
[2020-11-03] MEDS ORDERED: ONDANSETRON HCL 4 MG ORAL DISINTEGRATING TAB PO PRN (14:15)
[2020-11-03] MEDS ORDERED: SODIUM CHLORIDE 0.9% 250ML 250 ML IV ONE (14:20)
[2020-11-03] MEDS: IRON SUCROSE 100 MG in SODIUM CHLORIDE 0.9% 100 ML 100 ML IV SCH (18:36)
[2020-11-03] MEDS ORDERED: SODIUM CHLORIDE 0.9% 250ML 250 ML ONE (23:11)
[2020-11-04] VITALS (7 sets, daily range): BP systolic 94–114; BP diastolic 56–72
[2020-11-04] MEDS: PANTOPRAZOLE 40 MG 10ML VIAL IV SCH ×2 (03:08→13:22)
[2020-11-04] MEDS: LEVOTHYROXINE SODIUM 50 MCG TAB PO SCH (05:38)
[2020-11-04 06:18] LABS: BASOPHILS % 0.1 % (0.0-1.0); EOSINOPHILS # (AUTO) 0.1 (0.0-0.4); EOSINOPHILS % 1.8 % (0.0-6.0); HEMATOCRIT 25.6 % (34.2-44.1); HEMOGLOBIN 8.3 g/dL (12.0-16.0); LYMPHOCYTES # (AUTO) 0.8 (1.0-3.2); LYMPHOCYTES % 11.3 % (18.0-39.1); MEAN CORPUSCULAR HEMOGLOBIN 28.8 pg (28-32); MEAN CORPUSCULAR HGB CONC 32.4 g/dL (31-35); MEAN CORPUSCULAR VOLUME 88.9 fL (81-99); MONOCYTES # (AUTO) 0.5 (0.2-0.8); MONOCYTES % 6.9 % (4.4-11.3); NEUTROPHILS # (AUTO) 5.9 (2.1-6.9); NEUTROPHILS % 79.4 % (38.7-80.0); PLATELET COUNT 98 x10e3/uL (140-360); RED BLOOD COUNT 2.88 x10e6/uL (3.6-5.1)
[2020-11-04 06:48] LABS: ALBUMIN 1.3 g/dL (3.5-5.0); ALBUMIN/GLOBULIN RATIO 0.3 (0.8-2.0); ANION GAP 11.7 mmol/L (8-16); CALCIUM 7.3 mg/dL (8.4-10.2); CREATININE, SERUM 5.4 mg/dL (0.57-1.11); MAGNESIUM 1.3 MG/DL (1.3-2.1)
[2020-11-04 06:57] LABS: POTASSIUM 2.7 mmol/L (3.5-5.1)
[2020-11-04] MEDS: SUCRALFATE 1 GM TAB PO SCH ×4 (07:30→22:14)
[2020-11-04] MEDS ORDERED: POTASSIUM CHLORIDE 20MEQ/100ML 200 ML IV ONE (07:45)
[2020-11-04] MEDS: SODIUM BICARBONATE 650 MG TAB PO SCH ×2 (08:04→16:17)
[2020-11-04] MEDS ORDERED: SODIUM CHLORIDE 0.9% 250ML 250 ML ONE (08:23)
[2020-11-04] MEDS ORDERED: SODIUM CHLORIDE 0.9% 500ML 500 ML ONE ×2 (08:52→09:28)
[2020-11-04] MEDS: INSULIN GLARGINE 100 UNITS/ML VIAL SQ SCH ×2 (09:00→22:13)
[2020-11-04] MEDS: ASPIRIN 81 MG CHEW TAB PO SCH (09:00)
[2020-11-04] MEDS ORDERED: PROTAMINE SULFATE 10 MG/ML 5 ML VIAL ONE (09:27)
[2020-11-04] MEDS ORDERED: THROMBIN FOR SOLN 5,000 UNIT VIAL ONE (09:28)
[2020-11-04] MEDS ORDERED: HEPARIN SOD (PORCINE) 1000 UNIT/ML 30ML ONE (09:28)
[2020-11-04] MEDS ORDERED: BUPIVACAINE HCL 0.5% INJ 30 ML VIAL INJ ONE (09:28)
[2020-11-04] MEDS ORDERED: VANCOMYCIN 1GM/NS 250 ML 500 ML ONE (10:07)
[2020-11-04] MEDS ORDERED: ACETAMINOPHEN 1000 MG/100 ML 100 ML IV ONE (11:24)
[2020-11-04] MEDS ORDERED: SEVOFLURANE INHAL SOLN 250 ML PEN BTL ONE (12:13)
[2020-11-04] MEDS ORDERED: ONDANSETRON HCL INJ 2MG/ML 2ML 2 MG/ML VIAL ONE (12:13)
[2020-11-04] MEDS ORDERED: LIDOCAINE HCL 2% JELLY 5 ML TUBE ONE (12:13)
[2020-11-04] MEDS ORDERED: DEXAMETHASONE SOD PHOS INJ 4 MG/ML VIAL ONE (12:13)
[2020-11-04] MEDS ORDERED: PROPOFOL IV EMULSION 10 MG/ML 20 ML VIAL ONE (12:13)
[2020-11-04] MEDS ORDERED: FENTANYL CITRATE/PF 100MCG/2 ML INJ ONE (13:14)
[2020-11-04] MEDS ORDERED: MORPHINE SULFATE INJ 2 MG/ML SYR IV PRN (13:15)
[2020-11-04] MEDS ORDERED: MORPHINE SULFATE INJ 4 MG/ML INJ 1ML IV PRN (13:15)
[2020-11-04] MEDS: CITALOPRAM HYDROBROMIDE 20 MG TAB PO SCH (13:22)
[2020-11-04] MEDS: MULTIVITAMINS/MINERALS TAB PO SCH (13:22)
[2020-11-04] MEDS ORDERED: HEPARIN SOD (PORCINE) 1000 UNIT/ML SDV IV PRN (14:00)
[2020-11-04] MEDS: DOCUSATE SODIUM 100 MG CAP PO SCH (16:17)
[2020-11-04] MEDS ORDERED: FOSFOMYCIN TROMETHAMINE 3 GM PACKET PO ONE ×2 (17:00→20:00)
[2020-11-05] VITALS (8 sets, daily range): BP systolic 100–142; BP diastolic 47–99
[2020-11-05] MEDS: IRON SUCROSE 100 MG in SODIUM CHLORIDE 0.9% 100 ML 100 ML IV SCH ×2 (04:53→23:20)
[2020-11-05] MEDS: PANTOPRAZOLE 40 MG 10ML VIAL IV SCH ×2 (05:04→14:08)
[2020-11-05] MEDS: LEVOTHYROXINE SODIUM 50 MCG TAB PO SCH (05:08)
[2020-11-05 06:33] LABS: BASOPHILS % 0.4 % (0.0-1.0); EOSINOPHILS % 0.5 % (0.0-6.0); HEMOGLOBIN 10.4 g/dL (12.0-16.0); LYMPHOCYTES # (AUTO) 0.9 (1.0-3.2); LYMPHOCYTES % 11.7 % (18.0-39.1); MEAN CORPUSCULAR HGB CONC 32.5 g/dL (31-35); MEAN CORPUSCULAR VOLUME 89.1 fL (81-99); MONOCYTES # (AUTO) 0.5 (0.2-0.8); NEUTROPHILS # (AUTO) 5.9 (2.1-6.9); NEUTROPHILS % 79.6 % (38.7-80.0); PLATELET COUNT 105 x10e3/uL (140-360); RED BLOOD COUNT 3.59 x10e6/uL (3.6-5.1); RED CELL DISTRIBUTION WIDTH 16.6 % (11.7-14.4)
[2020-11-05 07:04] LABS: ALBUMIN 1.5 g/dL (3.5-5.0); ALBUMIN/GLOBULIN RATIO 0.4 (0.8-2.0); ANION GAP 12.2 mmol/L (8-16); CALCIUM 7.1 mg/dL (8.4-10.2); CREATININE, SERUM 3.6 mg/dL (0.57-1.11); MAGNESIUM 1.4 MG/DL (1.3-2.1); POTASSIUM 3.2 mmol/L (3.5-5.1)
[2020-11-05] MEDS: DOCUSATE SODIUM 100 MG CAP PO SCH ×2 (09:00→16:20)
[2020-11-05] MEDS: SUCRALFATE 1 GM TAB PO SCH ×4 (09:44→22:00)
[2020-11-05] MEDS: ASPIRIN 81 MG CHEW TAB PO SCH (09:44)
[2020-11-05] MEDS: CITALOPRAM HYDROBROMIDE 20 MG TAB PO SCH (09:44)
[2020-11-05] MEDS: MULTIVITAMINS/MINERALS TAB PO SCH (09:45)
[2020-11-05] MEDS: SODIUM BICARBONATE 650 MG TAB PO SCH ×2 (09:46→17:00)
[2020-11-05] MEDS: BENZONATATE 100 MG CAP PO SCH ×3 (09:47→22:00)
[2020-11-05] MEDS: INSULIN GLARGINE 100 UNITS/ML VIAL SQ SCH ×2 (09:48→21:49)
[2020-11-05] MEDS ORDERED: DEXTROSE 50% SYRINGE 50 ML IV PRN (12:45)
[2020-11-05] MEDS ORDERED: LOPERAMIDE HCL 2 MG CAP PO ONE (13:45)
[2020-11-05] MEDS: INSULIN REGULAR, HUMAN 100 UNIT/1 ML 3ML VIAL SQ SCH ×2 (17:00→21:49)
[2020-11-06] VITALS: BP 101/55
[2020-11-06] MEDS: PANTOPRAZOLE 40 MG 10ML VIAL IV SCH (03:42)
[2020-11-06 04:00] VITALS: BP 105/54
[2020-11-06] MEDS: LEVOTHYROXINE SODIUM 50 MCG TAB PO SCH (05:46)
[2020-11-06 08:00] VITALS: BP 101/56
[2020-11-06] MEDS: DOCUSATE SODIUM 100 MG CAP PO SCH (09:00)
[2020-11-06] MEDS: MULTIVITAMINS/MINERALS TAB PO SCH (09:34)
[2020-11-06] MEDS: SODIUM BICARBONATE 650 MG TAB PO SCH (09:34)
[2020-11-06] MEDS: INSULIN REGULAR, HUMAN 100 UNIT/1 ML 3ML VIAL SQ SCH (09:34)
[2020-11-06] MEDS: SUCRALFATE 1 GM TAB PO SCH (09:34)
[2020-11-06] MEDS: ASPIRIN 81 MG CHEW TAB PO SCH (09:34)
[2020-11-06] MEDS: INSULIN GLARGINE 100 UNITS/ML VIAL SQ SCH (09:34)
[2020-11-06] MEDS: BENZONATATE 100 MG CAP PO SCH (09:34)
[2020-11-06] MEDS: CITALOPRAM HYDROBROMIDE 20 MG TAB PO SCH (09:34)
== END 2020-11-06 10:42 | disposition home or self-care (01) | DRG 673 ==
LOC: ER 16:20 → ERHOLD 18:11 → MED/SURG3 19:37
PROVIDERS: ADMIT Internal Medicine; ATTEND Internal Medicine
PROC: 5A1D70Z Performance of Urinary Filtration, Intermittent, Less than 6 Hours Per Day (ICD-10-PCS; principal; 2020-10-29)
PROC: 02HV33Z Insertion of Infusion Device into Superior Vena Cava, Percutaneous Approach (ICD-10-PCS; 2020-10-29)
PROC: 0DB78ZX Excision of Stomach, Pylorus, Via Natural or Artificial Opening Endoscopic, Diagnostic (ICD-10-PCS; 2020-10-30)
PROC: 031709D Bypass Right Brachial Artery to Upper Arm Vein with Autologous Venous Tissue, Open Approach (ICD-10-PCS; 2020-11-04)
PROC: 0JH63XZ Insertion of Tunneled Vascular Access Device into Chest Subcutaneous Tissue and Fascia, Percutaneous Approach (ICD-10-PCS; 2020-11-04)
PROC: 02HV33Z Insertion of Infusion Device into Superior Vena Cava, Percutaneous Approach (ICD-10-PCS; 2020-11-04)
DX: I12.0 Hypertensive chronic kidney disease with stage 5 chronic kidney disease or end stage renal disease (principal); N18.6 End stage renal disease; N17.9 Acute kidney failure, unspecified; N39.0 Urinary tract infection, site not specified; E87.2 Acidosis; E66.01 Morbid (severe) obesity due to excess calories; Z68.39 Body mass index [BMI] 39.0-39.9, adult; E87.6 Hypokalemia; E11.22 Type 2 diabetes mellitus with diabetic chronic kidney disease; Z99.2 Dependence on renal dialysis; Z20.822 Contact with and (suspected) exposure to COVID-19; D63.1 Anemia in chronic kidney disease; D50.9 Iron deficiency anemia, unspecified; E03.9 Hypothyroidism, unspecified; N81.10 Cystocele, unspecified; N81.6 Rectocele; R35.1 Nocturia; R33.9 Retention of urine, unspecified; E66.9 Obesity, unspecified; Z98.84 Bariatric surgery status; N95.2 Postmenopausal atrophic vaginitis; D69.6 Thrombocytopenia, unspecified; F41.9 Anxiety disorder, unspecified; K25.9 Gastric ulcer, unspecified as acute or chronic, without hemorrhage or perforation; Z91.19 Patient's noncompliance with other medical treatment and regimen
CPT/HCPCS: 36415; 36556; 36558; 43239; 70450; 71045; 74470; 76770; 76937; 77001; 80048; 80053; 81001; 82270; 82607; 82728; 82746; 82948; 83540; 83735; 83880; 84100; 84132; 84466; 84484; 85025; 85610; 86704; 86706; 86850; 86900; 86920; 87086; 87186; 87340; 88305; 88312; 93005; 96372; 99284; C1713; C1752; J1100; J1200; J1610; J1644; J1756; J1815; J2001; J2060; J2150; J2405; J2720; J2765; J3010; J3370; J3430; J3480; J7030; J7040; J7050; P9016; U0002

== ENCOUNTER → 2020-12-08 | Outpatient (CLI) | payer MEDICARE ==
[~2020-12-08] MED LIST changes: +DIATRIZOATE MEGL/DIATRIZOA SOD 30 ML BTL PO ONE; -GLUCAGON FOR INJ 1 MG VIAL ONE; +IOPAMIDOL 370 MG/ML 200 ML INFUS..BTL INJ ONE; +SODIUM CHLORIDE 0.9% 50ML 50 ML ONE
[2020-12-08 17:11] LABS: CREATININE, SERUM 6.15 mg/dL (0.57-1.11)
== END ==
LOC: CT 16:19
PROVIDERS: ATTEND Internal Medicine Gastroenterology
DX: R10.32 Left lower quadrant pain (principal)
CPT/HCPCS: 36415; 74177; 82565; 84520; Q9967

== ENCOUNTER → 2020-12-31 | Outpatient (CLI) | payer MEDICARE ==
[~2020-12-31] MED LIST changes: -DIATRIZOATE MEGL/DIATRIZOA SOD 30 ML BTL PO ONE; +DICYCLOMINE HCL10 MG PO; +FLOMAX0.4 MG PO; -IOPAMIDOL 370 MG/ML 200 ML INFUS..BTL INJ ONE; +NITROFURANTOIN100 MG PO; +PROTONIX20 MG PO; -SODIUM CHLORIDE 0.9% 50ML 50 ML ONE; +SUCRALFATE1 GM PO; +VITAMIN D250 MCG PO
== END ==
LOC: US 12:31
PROVIDERS: ATTEND Urology
DX: N20.0 Calculus of kidney (principal); R31.21 Asymptomatic microscopic hematuria
CPT/HCPCS: 74018; 76770

== ENCOUNTER → 2021-01-07 | Day surgery (SDC) | payer MEDICARE ==
[~2021-01-07] MED LIST changes: +DEXTROSE 5% 250ML 250 ML IV ONE; +HYOSCYAMINE SULFATE 0.5 MG/ML INJ ONE; +LIDOCAINE HCL 2% LOCAL INJ 5 ML SDV VIAL INJ ONE; +MIDAZOLAM HCL 2 MG/2 ML VIAL ONE; +PROPOFOL IV EMULSION 10 MG/ML 20 ML VIAL ONE; +SODIUM CHLORIDE 0.9% 500ML 500 ML ONE
[2021-01-07 10:58] LABS: BASOPHILS % 0.6 % (0.0-1.0); EOSINOPHILS # (AUTO) 0.1 (0.0-0.4); EOSINOPHILS % 0.8 % (0.0-6.0); HEMATOCRIT 35.9 % (34.2-44.1); HEMOGLOBIN 10.8 g/dL (12.0-16.0); LYMPHOCYTES # (AUTO) 2.9 (1.0-3.2); LYMPHOCYTES % 43.6 % (18.0-39.1); MEAN CORPUSCULAR HGB CONC 30.1 g/dL (31-35); MEAN CORPUSCULAR VOLUME 103.2 fL (81-99); MONOCYTES # (AUTO) 0.3 (0.2-0.8); NEUTROPHILS # (AUTO) 3.3 (2.1-6.9); NEUTROPHILS % 49.7 % (38.7-80.0); PLATELET COUNT 81 x10e3/uL (140-360); RED BLOOD COUNT 3.48 x10e6/uL (3.6-5.1); RED CELL DISTRIBUTION WIDTH 20.6 % (11.7-14.4)
[2021-01-07 11:09] LABS: INR 1.24; PROTHROMBIN TIME 16.4 seconds (11.9-14.5)
[2021-01-07 11:10] LABS: PARTIAL THROMBOPLASTIN TIME 39.8 seconds (23.8-35.5)
[2021-01-07 11:15] LABS: ANION GAP 14.5 mmol/L (8-16); CALCIUM 7.7 mg/dL (8.4-10.2); CREATININE, SERUM 4.24 mg/dL (0.57-1.11); POTASSIUM 4.5 mmol/L (3.5-5.1)
[2021-01-07 13:25] VITALS: BP 120/67
[2021-01-07 13:40] LABS: WBC,FECAL (FECAL LACTOFERRIN) POSITIVE (NEGATIVE)
[2021-01-07 14:45] LABS: C DIFFICILE TOXIN A&B AMP PROB NEGATIVE (NEGATIVE)
== END | disposition home or self-care (01) ==
LOC: OR 08:52
PROVIDERS: ATTEND Internal Medicine Gastroenterology
DX: K52.9 Noninfective gastroenteritis and colitis, unspecified (principal); K63.5 Polyp of colon; Z98.0 Intestinal bypass and anastomosis status; K63.3 Ulcer of intestine; K62.89 Other specified diseases of anus and rectum; K64.8 Other hemorrhoids; K21.9 Gastro-esophageal reflux disease without esophagitis; K76.0 Fatty (change of) liver, not elsewhere classified; E11.22 Type 2 diabetes mellitus with diabetic chronic kidney disease; I12.0 Hypertensive chronic kidney disease with stage 5 chronic kidney disease or end stage renal disease; N18.6 End stage renal disease; F32.9 Major depressive disorder, single episode, unspecified; G62.9 Polyneuropathy, unspecified; Z88.6 Allergy status to analgesic agent; Z88.0 Allergy status to penicillin; Z88.2 Allergy status to sulfonamides; Z01.810 Encounter for preprocedural cardiovascular examination; Z01.812 Encounter for preprocedural laboratory examination; Z20.822 Contact with and (suspected) exposure to COVID-19; Z99.2 Dependence on renal dialysis; Z79.4 Long term (current) use of insulin; Z79.82 Long term (current) use of aspirin; Z85.3 Personal history of malignant neoplasm of breast
CPT/HCPCS: 36415; 45380; 45384; 80048; 82948; 83630; 83993; 85025; 85610; 85651; 85730; 86140; 86256; 86671; 87045; 87177; 87328; 87493; 93005; J1980; J2001; J2250; J2704; J7040; J7070; U0002; 45378

== ENCOUNTER → 2021-03-06 | Day surgery (SDC) | payer MEDICARE ==
[2021-03-04 11:21] LABS: BASOPHILS % 0.6 % (0.0-1.0); EOSINOPHILS # (AUTO) 0.1 (0.0-0.4); EOSINOPHILS % 1.6 % (0.0-6.0); HEMATOCRIT 34.8 % (34.2-44.1); HEMOGLOBIN 10.8 g/dL (12.0-16.0); LYMPHOCYTES % 41.7 % (18.0-39.1); MEAN CORPUSCULAR HEMOGLOBIN 31.3 pg (28-32); MEAN CORPUSCULAR VOLUME 100.9 fL (81-99); MONOCYTES # (AUTO) 0.4 (0.2-0.8); MONOCYTES % 7.4 % (4.4-11.3); NEUTROPHILS # (AUTO) 2.4 (2.1-6.9); NEUTROPHILS % 48.5 % (38.7-80.0); PLATELET COUNT 105 x10e3/uL (140-360); RED BLOOD COUNT 3.45 x10e6/uL (3.6-5.1); RED CELL DISTRIBUTION WIDTH 17.4 % (11.7-14.4)
[2021-03-04 11:39] LABS: ANION GAP 13.8 mmol/L (8-16); CALCIUM 7.4 mg/dL (8.4-10.2); CREATININE, SERUM 3.99 mg/dL (0.57-1.11); POTASSIUM 3.8 mmol/L (3.5-5.1)
[~2021-03-06] MED LIST changes: +BUPIVACAINE HCL 0.5% INJ 30 ML VIAL INJ ONE; +EPHEDRINE SULFATE INJ 50 MG/ML VIAL ONE; +GLYCOPYRROLATE INJ 0.2 MG/ML VIAL ONE; +HEPARIN SOD (PORCINE) 1000 UNIT/ML 30ML ONE; +HEPARIN SOD (PORCINE) 5,000 UNIT/ML VIAL ONE; -HYOSCYAMINE SULFATE 0.5 MG/ML INJ ONE; +MAGNESIUM PO; -MIDAZOLAM HCL 2 MG/2 ML VIAL ONE; +NEOSTIGMINE 1 MG/ML 10ML VIAL ONE; +ONDANSETRON HCL INJ 2MG/ML 2ML 2 MG/ML VIAL ONE; +POVIDONE IODINE 0.05% 0.05 % ML PO ONE; +PROTAMINE SULFATE 10 MG/ML 5 ML VIAL ONE; +ROCURONIUM BROMIDE 10 MG/ML 5ML VIAL IV ONE; +SEVOFLURANE INHAL SOLN 250 ML PEN BTL ONE; +THROMBIN FOR SOLN 5,000 UNIT VIAL ONE; +VANCOMYCIN 1GM/NS 250 ML 250 ML ONE
[2021-03-06 12:58] LABS: BASOPHILS % 0.5 % (0.0-1.0); EOSINOPHILS # (AUTO) 0.1 (0.0-0.4); EOSINOPHILS % 1.2 % (0.0-6.0); HEMATOCRIT 33.8 % (34.2-44.1); HEMOGLOBIN 10.4 g/dL (12.0-16.0); LYMPHOCYTES % 48.9 % (18.0-39.1); MEAN CORPUSCULAR HGB CONC 30.8 g/dL (31-35); MEAN CORPUSCULAR VOLUME 100.9 fL (81-99); MONOCYTES # (AUTO) 0.2 (0.2-0.8); NEUTROPHILS # (AUTO) 1.7 (2.1-6.9); NEUTROPHILS % 43.2 % (38.7-80.0); PLATELET COUNT 101 x10e3/uL (140-360); RED BLOOD COUNT 3.35 x10e6/uL (3.6-5.1); RED CELL DISTRIBUTION WIDTH 16.9 % (11.7-14.4)
[2021-03-06 13:17] LABS: ANION GAP 13.9 mmol/L (8-16); CALCIUM 7.5 mg/dL (8.4-10.2); CREATININE, SERUM 3.92 mg/dL (0.57-1.11); POTASSIUM 3.9 mmol/L (3.5-5.1)
[2021-03-06 13:18] LABS: INR 1.04; PROTHROMBIN TIME 14.2 seconds (11.9-14.5)
[2021-03-06 13:19] LABS: PARTIAL THROMBOPLASTIN TIME 47.3 seconds (23.8-35.5)
[2021-03-06 17:15] VITALS: BP 110/67
== END | disposition home or self-care (01) ==
LOC: OR 11:11
PROVIDERS: ATTEND Surgery
DX: E11.22 Type 2 diabetes mellitus with diabetic chronic kidney disease (principal); I12.0 Hypertensive chronic kidney disease with stage 5 chronic kidney disease or end stage renal disease; N18.6 End stage renal disease; Z99.2 Dependence on renal dialysis; E03.9 Hypothyroidism, unspecified; F32.9 Major depressive disorder, single episode, unspecified; Z01.812 Encounter for preprocedural laboratory examination; Z20.822 Contact with and (suspected) exposure to COVID-19; Z79.4 Long term (current) use of insulin; Z87.891 Personal history of nicotine dependence
CPT/HCPCS: 36415 ×2; 36832; 80048 ×2; 82948; 85025 ×2; 85610; 85730; C1713; J1644; J3370; J7040; J7070; U0002; J2720

== ENCOUNTER 2021-04-06 12:06 | Emergency (ER) | payer OTHER, MEDICARE ==
[~2021-04-06] VITALS: Ht 175.3 cm; Wt 122.5 kg
[~2021-04-06 12:06] MED LIST changes: -BUPIVACAINE HCL 0.5% INJ 30 ML VIAL INJ ONE; -DEXTROSE 5% 250ML 250 ML IV ONE; -EPHEDRINE SULFATE INJ 50 MG/ML VIAL ONE; -GLYCOPYRROLATE INJ 0.2 MG/ML VIAL ONE; -HEPARIN SOD (PORCINE) 1000 UNIT/ML 30ML ONE; -HEPARIN SOD (PORCINE) 5,000 UNIT/ML VIAL ONE; -LIDOCAINE HCL 2% LOCAL INJ 5 ML SDV VIAL INJ ONE; -NEOSTIGMINE 1 MG/ML 10ML VIAL ONE; -ONDANSETRON HCL INJ 2MG/ML 2ML 2 MG/ML VIAL ONE; -POVIDONE IODINE 0.05% 0.05 % ML PO ONE; -PROPOFOL IV EMULSION 10 MG/ML 20 ML VIAL ONE; -PROTAMINE SULFATE 10 MG/ML 5 ML VIAL ONE; -ROCURONIUM BROMIDE 10 MG/ML 5ML VIAL IV ONE; -SEVOFLURANE INHAL SOLN 250 ML PEN BTL ONE; -SODIUM CHLORIDE 0.9% 500ML 500 ML ONE; -THROMBIN FOR SOLN 5,000 UNIT VIAL ONE; -VANCOMYCIN 1GM/NS 250 ML 250 ML ONE
[2021-04-06] MEDS ORDERED: LIDOCAINE 1% W/EPINEPHRINE 20 ML VIAL INJ ONE (12:30)
[2021-04-06] MEDS ORDERED: MORPHINE SULFATE INJ 4 MG/ML INJ 1ML IV PRN (12:45)
[2021-04-06] MEDS ORDERED: ULTRAM50 MG PO (14:22)
[2021-04-06] MEDS ORDERED: CLEOCIN HCL150 MG PO (16:57)
== END 2021-04-06 17:57 | disposition home or self-care (01) ==
LOC: ER 12:31
DX: S02.32XA Fracture of orbital floor, left side, initial encounter for closed fracture (principal); S01.112A Laceration without foreign body of left eyelid and periocular area, initial encounter; S61.411A Laceration without foreign body of right hand, initial encounter; W01.0XXA Fall on same level from slipping, tripping and stumbling without subsequent striking against object, initial encounter; Y93.01 Activity, walking, marching and hiking; Y92.008 Other place in unspecified non-institutional (private) residence as the place of occurrence of the external cause; E11.22 Type 2 diabetes mellitus with diabetic chronic kidney disease; N18.6 End stage renal disease; Z99.2 Dependence on renal dialysis; E03.9 Hypothyroidism, unspecified; Z85.3 Personal history of malignant neoplasm of breast
CPT/HCPCS: 12001 ×2; 12013; 70450; 71045; 72125; 72170; 73130; 73562; 73610; 99284; J2270

== ENCOUNTER 2021-06-30 14:41 | Emergency (ER) | payer MEDICARE ==
[~2021-06-30] VITALS: Ht 175.3 cm; Wt 122.5 kg
[~2021-06-30 14:41] MED LIST changes: +CLEOCIN HCL150 MG PO
[2021-06-30 15:34] LABS: EOSINOPHILS % 0.2 % (0.0-6.0); HEMATOCRIT 33.1 % (34.2-44.1); HEMOGLOBIN 10.1 g/dL (12.0-16.0); LYMPHOCYTES # (AUTO) 0.8 (1.0-3.2); LYMPHOCYTES % 17.1 % (18.0-39.1); MEAN CORPUSCULAR HEMOGLOBIN 31.5 pg (28-32); MEAN CORPUSCULAR HGB CONC 30.5 g/dL (31-35); MEAN CORPUSCULAR VOLUME 103.1 fL (81-99); MONOCYTES # (AUTO) 0.2 (0.2-0.8); MONOCYTES % 4.3 % (4.4-11.3); NEUTROPHILS # (AUTO) 3.4 (2.1-6.9); NEUTROPHILS % 77.3 % (38.7-80.0); PLATELET COUNT 115 x10e3/uL (140-360); RED BLOOD COUNT 3.21 x10e6/uL (3.6-5.1); RED CELL DISTRIBUTION WIDTH 18.5 % (11.7-14.4)
[2021-06-30 15:53] LABS: ALBUMIN 2.3 g/dL (3.5-5.0); ALBUMIN/GLOBULIN RATIO 0.6 (0.8-2.0); CALCIUM 7.2 mg/dL (8.4-10.2); CREATININE, SERUM 5.52 mg/dL (0.57-1.11)
== END 2021-06-30 18:46 | disposition home or self-care (01) ==
LOC: ER 14:51
DX: R06.02 Shortness of breath (principal); R53.1 Weakness; U07.1 COVID-19; E11.22 Type 2 diabetes mellitus with diabetic chronic kidney disease; N18.6 End stage renal disease; Z99.2 Dependence on renal dialysis; I48.91 Unspecified atrial fibrillation; E87.6 Hypokalemia; Z98.0 Intestinal bypass and anastomosis status; R94.31 Abnormal electrocardiogram [ECG] [EKG]
CPT/HCPCS: 36415; 71045; 80053; 83880; 85025; 93005; 99284; U0002

== ENCOUNTER 2022-01-01 10:07 | Inpatient (IN) | payer MEDICARE ==
[~2022-01-01] VITALS: Ht 175.3 cm; Wt 98.4 kg
[2022-01-01] MEDS ORDERED: FUROSEMIDE40 MG PO (10:40)
[2022-01-01] MEDS ORDERED: VITAMIN D3250 MC1 (10:40)
[2022-01-01] MEDS ORDERED: SODIUM CHLORIDE FLUSH 10 ML SYR INJ PRN (11:00)
[2022-01-01] MEDS ORDERED: ACETAMINOPHEN 325 MG TAB PO PRN (12:15)
[2022-01-01] MEDS ORDERED: ONDANSETRON HCL INJ 2MG/ML 2ML 2 MG/ML VIAL IV PRN (12:15)
[2022-01-01] MEDS ORDERED: DIPHENHYDRAMINE HCL INJ 50 MG/ML VIAL IV PRN (12:15)
[2022-01-01 12:30] VITALS: BP 91/52
[2022-01-01] MEDS: FAMOTIDINE 20 MG TAB PO SCH (16:34)
[2022-01-01 16:49] VITALS: BP 99/53
[2022-01-01] MEDS ORDERED: APIXABAN 5 MG TABLET PO SCH (17:00)
[2022-01-01 20:00] VITALS: BP 87/67
[2022-01-01 21:00] VITALS: BP 87/67
[2022-01-01 21:13] VITALS: BP 103/62
[2022-01-01] MEDS ORDERED: DIGOXIN INJ 0.25 MG/ML 2 ML AMP IV ONE (22:15)
[2022-01-01] MEDS: ATORVASTATIN 40 MG TAB PO SCH (22:47)
[2022-01-01 23:30] LABS: CHOL/HDL RATIO 2.2 (3.0-3.6)
[2022-01-01 23:50] LABS: THYROID STIMULATING HORMONE 1.948 uIU/mL (0.350-4.940)
[2022-01-02] VITALS (9 sets, daily range): BP systolic 95–108; BP diastolic 57–73
[2022-01-02 07:22] LABS: ALBUMIN 1.4 g/dL (3.5-5.0); ALBUMIN/GLOBULIN RATIO 0.5 (0.8-2.0); ANION GAP 8.8 mmol/L (8-16); CALCIUM 7.4 mg/dL (8.4-10.2); CREATININE, SERUM 4.85 mg/dL (0.57-1.11); POTASSIUM 3.8 mmol/L (3.5-5.1)
[2022-01-02 07:33] LABS: BASOPHILS % 0.7 % (0.0-1.0); EOSINOPHILS # (AUTO) 0.1 (0.0-0.4); EOSINOPHILS % 2.2 % (0.0-6.0); HEMATOCRIT 26.2 % (34.2-44.1); HEMOGLOBIN 8.5 g/dL (12.0-16.0); LYMPHOCYTES # (AUTO) 1.3 (1.0-3.2); LYMPHOCYTES % 46.7 % (18.0-39.1); MEAN CORPUSCULAR HEMOGLOBIN 34.8 pg (28-32); MEAN CORPUSCULAR HGB CONC 32.4 g/dL (31-35); MEAN CORPUSCULAR VOLUME 107.4 fL (81-99); MONOCYTES # (AUTO) 0.2 (0.2-0.8); MONOCYTES % 8.1 % (4.4-11.3); NEUTROPHILS # (AUTO) 1.1 (2.1-6.9); NEUTROPHILS % 41.9 % (38.7-80.0); RED BLOOD COUNT 2.44 x10e6/uL (3.6-5.1); RED CELL DISTRIBUTION WIDTH 20.5 % (11.7-14.4)
[2022-01-02 07:40] LABS: PLATELET COUNT 47 x10e3/uL (140-360)
[2022-01-02] MEDS: FAMOTIDINE 20 MG TAB PO SCH ×2 (08:13→16:16)
[2022-01-02 08:14] LABS: LYMPHOCYTES % (MANUAL) 43 % (19-48); MONOCYTES % (MANUAL) 7 % (3.4-9.0); NEUTROPHILS % (MANUAL) 49 % (40-74); NUCLEATED RED BLOOD CELLS 3; PLATELET ESTIMATE MODERATELY DECREASED; PLATELET MORPHOLOGY COMMENT NORMAL
[2022-01-02 08:15] LABS: POLYCHROMASIA FEW; RBC MORPHOLOGY COMMENT NORMAL
[2022-01-02] MEDS: ASPIRIN 81 MG ENTERIC COATED PO SCH (09:24)
[2022-01-02] MEDS: APIXABAN 5 MG TABLET PO SCH (16:16)
[2022-01-02] MEDS: ATORVASTATIN 40 MG TAB PO SCH (20:53)
[2022-01-02] MEDS: DIGOXIN 0.125 MG TAB PO SCH (20:53)
[2022-01-03] VITALS (7 sets, daily range): BP systolic 99–113; BP diastolic 61–73
[2022-01-03] MEDS: FAMOTIDINE 20 MG TAB PO SCH ×2 (08:23→16:30)
[2022-01-03] MEDS: DILTIAZEM HCL ER 120 MG CAP PO SCH (09:40)
[2022-01-03] MEDS: ASPIRIN 81 MG ENTERIC COATED PO SCH (09:40)
[2022-01-03] MEDS: APIXABAN 5 MG TABLET PO SCH ×2 (09:40→16:30)
[2022-01-03] MEDS: DIGOXIN 0.125 MG TAB PO SCH (09:41)
[2022-01-03] MEDS: ATORVASTATIN 40 MG TAB PO SCH ×2 (20:24→21:19)
[2022-01-04] VITALS (7 sets, daily range): BP systolic 92–116; BP diastolic 59–70
[2022-01-04 05:48] LABS: BASOPHILS % 0.4 % (0.0-1.0); EOSINOPHILS % 0.9 % (0.0-6.0); HEMATOCRIT 34.5 % (34.2-44.1); HEMOGLOBIN 11.1 g/dL (12.0-16.0); LYMPHOCYTES # (AUTO) 1.9 (1.0-3.2); LYMPHOCYTES % 39.6 % (18.0-39.1); MEAN CORPUSCULAR HEMOGLOBIN 35.1 pg (28-32); MEAN CORPUSCULAR HGB CONC 32.2 g/dL (31-35); MEAN CORPUSCULAR VOLUME 109.2 fL (81-99); MONOCYTES # (AUTO) 0.4 (0.2-0.8); MONOCYTES % 8.3 % (4.4-11.3); NEUTROPHILS # (AUTO) 2.4 (2.1-6.9); NEUTROPHILS % 50.6 % (38.7-80.0); PLATELET COUNT 81 x10e3/uL (140-360); RED BLOOD COUNT 3.16 x10e6/uL (3.6-5.1); RED CELL DISTRIBUTION WIDTH 21.3 % (11.7-14.4)
[2022-01-04 06:49] LABS: ALBUMIN 1.6 g/dL (3.5-5.0); ALBUMIN/GLOBULIN RATIO 0.4 (0.8-2.0); CALCIUM 7.6 mg/dL (8.4-10.2); CREATININE, SERUM 6.36 mg/dL (0.57-1.11); MAGNESIUM 1.4 MG/DL (1.3-2.1)
[2022-01-04] MEDS: ASPIRIN 81 MG ENTERIC COATED PO SCH (09:15)
[2022-01-04] MEDS: APIXABAN 5 MG TABLET PO SCH ×2 (09:15→16:51)
[2022-01-04] MEDS: FAMOTIDINE 20 MG TAB PO SCH ×2 (09:15→16:51)
[2022-01-04] MEDS: DILTIAZEM HCL ER 120 MG CAP PO SCH (09:16)
[2022-01-04] MEDS: DIGOXIN 0.125 MG TAB PO SCH (09:16)
[2022-01-04] MEDS ORDERED: ONDANSETRON HCL 4 MG ORAL DISINTEGRATING TAB PO PRN (11:15)
[2022-01-04] MEDS ORDERED: SODIUM CHLORIDE 0.9% 1000ML 2,000 ML IV PRN (12:30)
[2022-01-04] MEDS ORDERED: ALBUMIN 25% 12.5GM 0.25 GM/ML BTL IV PRN (12:30)
[2022-01-04] MEDS ORDERED: SODIUM CHLORIDE 0.9% 250ML 500 ML IV PRN (12:30)
[2022-01-04] MEDS ORDERED: EPOETIN ALFA-EPBX 10,000 UNIT/ML VIAL SC ONE (13:30)
[2022-01-04] MEDS: ATORVASTATIN 40 MG TAB PO SCH (21:04)
[2022-01-05] VITALS (8 sets, daily range): BP systolic 85–102; BP diastolic 48–57
[2022-01-05] MEDS: FAMOTIDINE 20 MG TAB PO SCH ×2 (07:30→17:46)
[2022-01-05] MEDS: AMIODARONE HCL 200 MG TAB PO SCH ×2 (09:00→17:46)
[2022-01-05] MEDS: APIXABAN 5 MG TABLET PO SCH ×2 (09:00→17:46)
[2022-01-05] MEDS: DILTIAZEM HCL ER 120 MG CAP PO SCH (11:37)
[2022-01-05] MEDS: ASPIRIN 81 MG ENTERIC COATED PO SCH (17:46)
[2022-01-05] MEDS: ATORVASTATIN 40 MG TAB PO SCH (21:41)
[2022-01-06] VITALS: BP 96/61
[2022-01-06 04:00] VITALS: BP 109/65
[2022-01-06 04:30] VITALS: BP 109/65
[2022-01-06 08:00] VITALS: BP 101/71
[2022-01-06] MEDS: FAMOTIDINE 20 MG TAB PO SCH (08:00)
[2022-01-06] MEDS: ASPIRIN 81 MG ENTERIC COATED PO SCH (08:00)
[2022-01-06] MEDS: APIXABAN 5 MG TABLET PO SCH (08:01)
[2022-01-06] MEDS: AMIODARONE HCL 200 MG TAB PO SCH (08:01)
[2022-01-06] MEDS: DILTIAZEM HCL ER 120 MG CAP PO SCH (08:01)
[2022-01-06 08:31] VITALS: BP 109/65
== END 2022-01-06 09:56 | disposition home or self-care (01) | DRG 64 ==
LOC: FSED 10:15 → ERHOLD 11:03 → MED/SURG 12:30 → OBSVTOIN 01-03 08:33
PROVIDERS: ADMIT Internal Medicine; ATTEND Internal Medicine
PROC: 5A1D70Z Performance of Urinary Filtration, Intermittent, Less than 6 Hours Per Day (ICD-10-PCS; principal; 2022-01-04)
DX: I63.449 Cerebral infarction due to embolism of unspecified cerebellar artery (principal); N18.6 End stage renal disease; I74.09 Other arterial embolism and thrombosis of abdominal aorta; I12.0 Hypertensive chronic kidney disease with stage 5 chronic kidney disease or end stage renal disease; I48.91 Unspecified atrial fibrillation; Z79.01 Long term (current) use of anticoagulants; E11.22 Type 2 diabetes mellitus with diabetic chronic kidney disease; Z99.2 Dependence on renal dialysis; Z79.899 Other long term (current) drug therapy; Z85.3 Personal history of malignant neoplasm of breast; Z20.822 Contact with and (suspected) exposure to COVID-19; E78.5 Hyperlipidemia, unspecified
CPT/HCPCS: 36415; 70450; 70551; 80053; 80061; 82553; 82948; 83735; 84443; 84484; 85025; 86705; 86706; 87340; 93005; 93306; 93880; 97139; 99284; G0378; J1160; J7030; U0002

== ENCOUNTER 2022-01-10 13:55 | Emergency (ER) | payer MEDICARE ==
[~2022-01-10] VITALS: Ht 175.3 cm; Wt 98.4 kg
[~2022-01-10 13:55] MED LIST changes: +FUROSEMIDE40 MG PO; +VITAMIN D3250 MC1
[2022-01-10 15:41] LABS: BASOPHILS % 0.3 % (0.0-1.0); HEMATOCRIT 31.7 % (34.2-44.1); HEMOGLOBIN 10.6 g/dL (12.0-16.0); LYMPHOCYTES # (AUTO) 0.9 (1.0-3.2); LYMPHOCYTES % 15.7 % (18.0-39.1); MEAN CORPUSCULAR HEMOGLOBIN 35.9 pg (28-32); MEAN CORPUSCULAR HGB CONC 33.4 g/dL (31-35); MEAN CORPUSCULAR VOLUME 107.5 fL (81-99); MONOCYTES # (AUTO) 0.3 (0.2-0.8); MONOCYTES % 4.8 % (4.4-11.3); NEUTROPHILS # (AUTO) 4.6 (2.1-6.9); NEUTROPHILS % 78.7 % (38.7-80.0); PLATELET COUNT 66 x10e3/uL (140-360); RED BLOOD COUNT 2.95 x10e6/uL (3.6-5.1); RED CELL DISTRIBUTION WIDTH 20.9 % (11.7-14.4)
[2022-01-10 16:03] LABS: INR 1.52; PROTHROMBIN TIME 19.6 seconds (11.9-14.5)
[2022-01-10 16:04] LABS: PARTIAL THROMBOPLASTIN TIME 38.9 seconds (23.8-35.5)
[2022-01-10 16:19] LABS: ALBUMIN 1.5 g/dL (3.5-5.0); ALBUMIN/GLOBULIN RATIO 0.4 (0.8-2.0); ANION GAP 12.4 mmol/L (8-16); CALCIUM 7.3 mg/dL (8.4-10.2); CREATININE, SERUM 3.93 mg/dL (0.57-1.11); MAGNESIUM 1.5 MG/DL (1.3-2.1); POTASSIUM 3.4 mmol/L (3.5-5.1)
[2022-01-10 16:36] LABS: CREATINE KINASE MB 1.2 ng/mL (0-5.0)
[2022-01-10] MEDS ORDERED: ASPIRIN 81 MG CHEW TAB PO STA (17:06)
[2022-01-10] MEDS ORDERED: APIXAB 2.5 MG TABLET PO ONE (18:15)
== END 2022-01-10 18:51 | disposition home or self-care (01) ==
LOC: ER 14:10
DX: G45.9 Transient cerebral ischemic attack, unspecified (principal); G45.3 Amaurosis fugax; E11.22 Type 2 diabetes mellitus with diabetic chronic kidney disease; N18.6 End stage renal disease; Z99.2 Dependence on renal dialysis; E03.9 Hypothyroidism, unspecified; R94.31 Abnormal electrocardiogram [ECG] [EKG]; Z85.3 Personal history of malignant neoplasm of breast; Z87.442 Personal history of urinary calculi
CPT/HCPCS: 36415; 70450; 71045; 80053; 82550; 82553; 83690; 83735; 83880; 84484; 85025; 85610; 85730; 93005; 99284

== ENCOUNTER 2022-01-22 12:16 | Inpatient (IN) | payer MEDICARE ==
[~2022-01-22] VITALS: Ht 175.3 cm; Wt 105.7 kg
[2022-01-22] VITALS (22 sets, daily range): BP systolic 74–101; BP diastolic 48–68
[2022-01-22] MEDS ORDERED: SODIUM CHLORIDE 0.9% 500ML 500 ML IV STA (12:27)
[2022-01-22 13:23] LABS: BASOPHILS % 0.4 % (0.0-1.0); EOSINOPHILS % 0.8 % (0.0-6.0); LYMPHOCYTES # (AUTO) 0.6 (1.0-3.2); LYMPHOCYTES % 25.4 % (18.0-39.1); MEAN CORPUSCULAR HEMOGLOBIN 36.3 pg (28-32); MEAN CORPUSCULAR HGB CONC 32.2 g/dL (31-35); MEAN CORPUSCULAR VOLUME 112.8 fL (81-99); MONOCYTES # (AUTO) 0.2 (0.2-0.8); MONOCYTES % 6.5 % (4.4-11.3); NEUTROPHILS # (AUTO) 1.7 (2.1-6.9); NEUTROPHILS % 66.5 % (38.7-80.0); RED BLOOD COUNT 1.79 x10e6/uL (3.6-5.1); RED CELL DISTRIBUTION WIDTH 20.1 % (11.7-14.4)
[2022-01-22 13:30] LABS: HEMATOCRIT 20.2 % (34.2-44.1); HEMOGLOBIN 6.5 g/dL (12.0-16.0); PLATELET COUNT 36 x10e3/uL (140-360)
[2022-01-22] MEDS ORDERED: SODIUM CHLORIDE 0.9% 500ML 500 ML IV ONE (13:30)
[2022-01-22] MEDS ORDERED: SODIUM CHLORIDE 0.9% 250ML 250 ML IV ONE (13:30)
[2022-01-22 13:32] LABS: INR 2.02; PARTIAL THROMBOPLASTIN TIME 42.7 seconds (23.8-35.5); PROTHROMBIN TIME 24.4 seconds (11.9-14.5)
[2022-01-22 13:35] LABS: CLARITY,URINE TURBID (CLEAR); COLOR,URINE BROWN (YELLOW); KETONES,URINE TRACE (NEGATIVE); LEUKOCYTE ESTERASE ,URINE LARGE (NEGATIVE); NITRITE,URINE NEGATIVE (NEGATIVE); PROTEIN,URINE DIPSTICK >=300 (NEGATIVE); URINE UROBILINOGEN 0.2 mg/dL (0.2 - 1)
[2022-01-22 13:40] LABS: ALBUMIN 0.9 g/dL (3.5-5.0); ALBUMIN/GLOBULIN RATIO 0.4 (0.8-2.0); ANION GAP 7.7 mmol/L (8-16); CREATININE, SERUM 2.6 mg/dL (0.57-1.11)
[2022-01-22 13:44] LABS: CALCIUM 4.4 mg/dL (8.4-10.2); POTASSIUM 2.7 mmol/L (3.5-5.1)
[2022-01-22 13:45] LABS: BACTERIA,URINE MANY /HPF; WBC,URINE (MAN) >50 /HPF (0-5)
[2022-01-22 13:47] LABS: CREATINE KINASE MB 1.1 ng/mL (0-5.0)
[2022-01-22 13:54] LABS: B-TYPE NATRIURETIC PEPTIDE2 400.6 pg/mL (0-100)
[2022-01-22] MEDS ORDERED: Vancomycin IV 1 GM in SODIUM CHLORIDE 0.9% 250ML 250 ML IV SCH (14:15)
[2022-01-22] MEDS ORDERED: POTASSIUM CHLORIDE 10MEQ/100ML 200 ML IV ONE (14:30)
[2022-01-22] MEDS ORDERED: ONDANSETRON HCL INJ 2MG/ML 2ML 2 MG/ML VIAL IV PRN (14:30)
[2022-01-22] MEDS ORDERED: SODIUM CHLORIDE 0.9% 1000ML 700 ML IV SCH (14:30)
[2022-01-22] MEDS: NOREPINEPHRINE 8 MG/D5W 250 ML 250 ML IV SCH (14:36)
[2022-01-22] MEDS: SODIUM CHLORIDE 0.9% 1000ML 1,000 ML IV SCH (14:53)
[2022-01-22] MEDS ORDERED: POTASSIUM CHLORIDE 20MEQ/100ML 100 ML IV ONE (15:00)
[2022-01-22 17:24] LABS: CREATINE KINASE MB 1.7 ng/mL (0-5.0)
[2022-01-22] MEDS ORDERED: AMIODARONE HCL100 MG PO (18:58)
[2022-01-22] MEDS ORDERED: ELIQUIS5 MG PO (18:58)
[2022-01-22] MEDS ORDERED: NEURONTIN100 MG PO (18:58)
[2022-01-22] MEDS ORDERED: ATORVASTATIN CA20 MG PO (18:58)
[2022-01-22] MEDS ORDERED: VASOPRESSIN 60 UNIT in DEXTROSE 5% 50ML 57 ML IV PRN (19:00)
[2022-01-22] MEDS ORDERED: SODIUM CHLORIDE 0.9% 250ML 500 ML ONE (19:14)
[2022-01-22] MEDS: VANCOMYCIN 250MG/5ML ORAL SOLN PO SCH ×2 (19:39→23:31)
[2022-01-22 23:40] LABS: IRON 28 ug/dL (50-170)
[2022-01-22 23:41] LABS: TRANSFERRIN < 19 mg/dL (180-382)
[2022-01-23] VITALS (37 sets, daily range): BP systolic 81–125; BP diastolic 48–83
[2022-01-23] MEDS: NOREPINEPHRINE 8 MG/D5W 250 ML 250 ML IV SCH ×2 (00:15→02:12)
[2022-01-23 00:53] LABS: CREATINE KINASE MB 1.7 ng/mL (0-5.0)
[2022-01-23] MEDS ORDERED: FOLIC ACID 1 MG TAB PO ONE (02:00)
[2022-01-23] MEDS ORDERED: ALBUMIN 25% 25GM 100ML 0.25 GM/ML BTL IV ONE ×2 (04:00→08:00)
[2022-01-23] MEDS: SODIUM CHLORIDE 0.9% 1000ML 1,000 ML IV SCH (05:26)
[2022-01-23] MEDS: VANCOMYCIN 250MG/5ML ORAL SOLN PO SCH ×3 (05:27→17:36)
[2022-01-23 06:40] LABS: BASOPHILS % 0.2 % (0.0-1.0); EOSINOPHILS # (AUTO) 0.1 (0.0-0.4); EOSINOPHILS % 1.2 % (0.0-6.0); HEMATOCRIT 32.4 % (34.2-44.1); HEMOGLOBIN 10.9 g/dL (12.0-16.0); LYMPHOCYTES # (AUTO) 1.8 (1.0-3.2); LYMPHOCYTES % 42.1 % (18.0-39.1); MEAN CORPUSCULAR HEMOGLOBIN 34.1 pg (28-32); MEAN CORPUSCULAR HGB CONC 33.6 g/dL (31-35); MEAN CORPUSCULAR VOLUME 101.3 fL (81-99); MONOCYTES # (AUTO) 0.3 (0.2-0.8); MONOCYTES % 7.2 % (4.4-11.3); NEUTROPHILS # (AUTO) 2.1 (2.1-6.9); NEUTROPHILS % 49.1 % (38.7-80.0); PLATELET COUNT 92 x10e3/uL (140-360); RED CELL DISTRIBUTION WIDTH 22.4 % (11.7-14.4)
[2022-01-23 07:04] LABS: ALBUMIN 2.5 g/dL (3.5-5.0); ALBUMIN/GLOBULIN RATIO 0.9 (0.8-2.0); ANION GAP 10.9 mmol/L (8-16); CHOL/HDL RATIO 2.2 (3.0-3.6)
[2022-01-23 07:14] LABS: POTASSIUM 3.9 mmol/L (3.5-5.1)
[2022-01-23 07:15] LABS: CALCIUM 7.6 mg/dL (8.4-10.2); CREATININE, SERUM 4.64 mg/dL (0.57-1.11)
[2022-01-23 07:38] LABS: CREATINE KINASE MB 1.1 ng/mL (0-5.0)
[2022-01-23] MEDS: FOLIC ACID 1 MG TAB PO SCH (10:08)
[2022-01-23] MEDS: IRON SUCROSE 100 MG in SODIUM CHLORIDE 0.9% 100 ML 100 ML IV SCH (11:05)
[2022-01-23] MEDS: MIDODRINE 2.5 MG TAB PO SCH ×2 (13:06→17:23)
[2022-01-24] VITALS (28 sets, daily range): BP systolic 82–107; BP diastolic 50–78
[2022-01-24] MEDS: VANCOMYCIN 250MG/5ML ORAL SOLN PO SCH ×4 (00:35→16:15)
[2022-01-24] MEDS: SODIUM CHLORIDE 0.9% 1000ML 1,000 ML IV SCH (01:58)
[2022-01-24 06:06] LABS: BASOPHILS % 0.5 % (0.0-1.0); EOSINOPHILS # (AUTO) 0.1 (0.0-0.4); EOSINOPHILS % 3.2 % (0.0-6.0); HEMATOCRIT 28.8 % (34.2-44.1); HEMOGLOBIN 9.6 g/dL (12.0-16.0); LYMPHOCYTES # (AUTO) 0.7 (1.0-3.2); LYMPHOCYTES % 32.1 % (18.0-39.1); MEAN CORPUSCULAR HEMOGLOBIN 34.2 pg (28-32); MEAN CORPUSCULAR HGB CONC 33.3 g/dL (31-35); MEAN CORPUSCULAR VOLUME 102.5 fL (81-99); MONOCYTES # (AUTO) 0.1 (0.2-0.8); MONOCYTES % 5.9 % (4.4-11.3); NEUTROPHILS # (AUTO) 1.3 (2.1-6.9); NEUTROPHILS % 58.3 % (38.7-80.0); RED BLOOD COUNT 2.81 x10e6/uL (3.6-5.1); RED CELL DISTRIBUTION WIDTH 22.5 % (11.7-14.4)
[2022-01-24 06:33] LABS: ALBUMIN 2.3 g/dL (3.5-5.0); ALBUMIN/GLOBULIN RATIO 1.1 (0.8-2.0); ANION GAP 6.2 mmol/L (8-16); CALCIUM 7.1 mg/dL (8.4-10.2); POTASSIUM 3.2 mmol/L (3.5-5.1)
[2022-01-24 06:38] LABS: PLATELET COUNT 46 x10e3/uL (140-360)
[2022-01-24 06:48] LABS: CREATININE, SERUM 3.55 mg/dL (0.57-1.11)
[2022-01-24] MEDS: MIDODRINE 2.5 MG TAB PO SCH ×3 (08:55→16:15)
[2022-01-24] MEDS: FOLIC ACID 1 MG TAB PO SCH (09:20)
[2022-01-24] MEDS ORDERED: SODIUM CHLORIDE 0.9% 1000ML 2,000 ML IV PRN (09:45)
[2022-01-24] MEDS: IRON SUCROSE 100 MG in SODIUM CHLORIDE 0.9% 100 ML 100 ML IV SCH (12:09)
[2022-01-25] VITALS (20 sets, daily range): BP systolic 78–116; BP diastolic 51–83
[2022-01-25 05:39] LABS: BASOPHILS % 0.2 % (0.0-1.0); HEMATOCRIT 32.4 % (34.2-44.1); HEMOGLOBIN 10.8 g/dL (12.0-16.0); LYMPHOCYTES # (AUTO) 0.9 (1.0-3.2); LYMPHOCYTES % 21.4 % (18.0-39.1); MEAN CORPUSCULAR HEMOGLOBIN 34.1 pg (28-32); MEAN CORPUSCULAR HGB CONC 33.3 g/dL (31-35); MEAN CORPUSCULAR VOLUME 102.2 fL (81-99); MONOCYTES # (AUTO) 0.2 (0.2-0.8); MONOCYTES % 4.9 % (4.4-11.3); NEUTROPHILS # (AUTO) 2.9 (2.1-6.9); NEUTROPHILS % 72.3 % (38.7-80.0); RED BLOOD COUNT 3.17 x10e6/uL (3.6-5.1); RED CELL DISTRIBUTION WIDTH 21.6 % (11.7-14.4)
[2022-01-25 05:56] LABS: PLATELET COUNT 39 x10e3/uL (140-360)
[2022-01-25 06:13] LABS: ALBUMIN/GLOBULIN RATIO 0.9 (0.8-2.0); CREATININE, SERUM 3.87 mg/dL (0.57-1.11)
[2022-01-25 06:33] LABS: ANION GAP 8.8 mmol/L (8-16)
[2022-01-25 06:41] LABS: CALCIUM 6.9 mg/dL (8.4-10.2); POTASSIUM 2.8 mmol/L (3.5-5.1)
[2022-01-25] MEDS ORDERED: POTASSIUM CHLORIDE 20 MEQ TAB CR PO ONE (07:00)
[2022-01-25] MEDS: SODIUM CHLORIDE 0.9% 1000ML 1,000 ML IV SCH ×2 (07:49→16:44)
[2022-01-25] MEDS: FOLIC ACID 1 MG TAB PO SCH (07:50)
[2022-01-25] MEDS: MIDODRINE 2.5 MG TAB PO SCH ×3 (07:50→16:43)
[2022-01-25] MEDS ORDERED: POTASSIUM CHLORIDE 20 MEQ TAB CR PO STA (09:55)
[2022-01-25] MEDS: IRON SUCROSE 100 MG in SODIUM CHLORIDE 0.9% 100 ML 100 ML IV SCH (11:29)
[2022-01-25] MEDS: MUPIROCIN 2% OINT 22 GM TUBE TOP SCH (16:43)
[2022-01-25] MEDS: CHOLESTYRAMINE 4 GM PACKET PO SCH ×2 (16:44→21:36)
[2022-01-26] VITALS (37 sets, daily range): BP systolic 85–118; BP diastolic 50–98
[2022-01-26 05:04] LABS: BASOPHILS % 0.6 % (0.0-1.0); EOSINOPHILS % 0.8 % (0.0-6.0); HEMATOCRIT 33.3 % (34.2-44.1); HEMOGLOBIN 11.1 g/dL (12.0-16.0); LYMPHOCYTES # (AUTO) 0.9 (1.0-3.2); LYMPHOCYTES % 18.6 % (18.0-39.1); MEAN CORPUSCULAR HEMOGLOBIN 34.5 pg (28-32); MEAN CORPUSCULAR HGB CONC 33.3 g/dL (31-35); MEAN CORPUSCULAR VOLUME 103.4 fL (81-99); MONOCYTES # (AUTO) 0.2 (0.2-0.8); MONOCYTES % 4.5 % (4.4-11.3); NEUTROPHILS # (AUTO) 3.7 (2.1-6.9); NEUTROPHILS % 74.9 % (38.7-80.0); RED BLOOD COUNT 3.22 x10e6/uL (3.6-5.1); RED CELL DISTRIBUTION WIDTH 21.5 % (11.7-14.4)
[2022-01-26 05:09] LABS: PLATELET COUNT 41 x10e3/uL (140-360)
[2022-01-26 07:10] LABS: ALBUMIN 1.8 g/dL (3.5-5.0); ALBUMIN/GLOBULIN RATIO 0.7 (0.8-2.0); ANION GAP 9.4 mmol/L (8-16); CREATININE, SERUM 4.59 mg/dL (0.57-1.11); POTASSIUM 3.4 mmol/L (3.5-5.1)
[2022-01-26 07:12] LABS: CALCIUM 6.8 mg/dL (8.4-10.2)
[2022-01-26] MEDS: MIDODRINE 2.5 MG TAB PO SCH ×3 (08:54→17:43)
[2022-01-26] MEDS: CHOLESTYRAMINE 4 GM PACKET PO SCH ×3 (08:54→22:00)
[2022-01-26] MEDS: MUPIROCIN 2% OINT 22 GM TUBE TOP SCH ×2 (08:54→17:39)
[2022-01-26] MEDS: FOLIC ACID 1 MG TAB PO SCH (08:54)
[2022-01-26] MEDS: IRON SUCROSE 100 MG in SODIUM CHLORIDE 0.9% 100 ML 100 ML IV SCH (08:54)
[2022-01-26] MEDS ORDERED: ALBUMIN 25% 12.5GM 0.25 GM/ML BTL IV ONE (09:45)
[2022-01-26] MEDS ORDERED: ALBUMIN 25% 12.5GM 50ML 150 ML IV ONE (09:45)
[2022-01-26] MEDS: SODIUM CHLORIDE 0.9% 1000ML 1,000 ML IV SCH (13:58)
[2022-01-26] MEDS ORDERED: SODIUM CHLORIDE 0.9% 250ML 250 ML ONE (21:33)
[2022-01-27] VITALS (23 sets, daily range): BP systolic 76–108; BP diastolic 48–89
[2022-01-27] MEDS ORDERED: DIPHENOXYLATE/ATROPINE TAB PO ONE (03:15)
[2022-01-27 07:00] LABS: BASOPHILS % 0.6 % (0.0-1.0); EOSINOPHILS % 1.1 % (0.0-6.0); HEMATOCRIT 28.4 % (34.2-44.1); HEMOGLOBIN 9.1 g/dL (12.0-16.0); LYMPHOCYTES % 28.1 % (18.0-39.1); MONOCYTES # (AUTO) 0.2 (0.2-0.8); MONOCYTES % 5.7 % (4.4-11.3); NEUTROPHILS # (AUTO) 2.2 (2.1-6.9); NEUTROPHILS % 64.2 % (38.7-80.0); RED BLOOD COUNT 2.68 x10e6/uL (3.6-5.1); RED CELL DISTRIBUTION WIDTH 21.6 % (11.7-14.4)
[2022-01-27 07:15] LABS: PLATELET COUNT 31 x10e3/uL (140-360)
[2022-01-27 07:19] LABS: ALBUMIN 2.1 g/dL (3.5-5.0); ANION GAP 8.1 mmol/L (8-16); CREATININE, SERUM 3.79 mg/dL (0.57-1.11); POTASSIUM 3.1 mmol/L (3.5-5.1)
[2022-01-27 07:21] LABS: CALCIUM 6.6 mg/dL (8.4-10.2)
[2022-01-27] MEDS ORDERED: CALCIUM GLUC 1 G/50 ML NACL 50 ML IV ONE ×2 (07:30→11:15)
[2022-01-27] MEDS ORDERED: POTASSIUM CHLORIDE 20 MEQ TAB CR PO ONE (07:45)
[2022-01-27] MEDS: MIDODRINE 2.5 MG TAB PO SCH ×3 (08:44→16:42)
[2022-01-27] MEDS: FOLIC ACID 1 MG TAB PO SCH (08:53)
[2022-01-27] MEDS: DIPHENOXYLATE/ATROPINE TAB PO SCH (08:53)
[2022-01-27] MEDS: LACTOBACILLUS ACIDOPHILUS CAPSULE PO SCH ×3 (08:53→20:42)
[2022-01-27] MEDS: SODIUM CHLORIDE 0.9% 1000ML 1,000 ML IV SCH ×2 (09:58→23:36)
[2022-01-27 10:40] LABS: EOSINOPHILS % (MANUAL) 2 % (0-7); LYMPHOCYTES % (MANUAL) 24 % (19-48); MONOCYTES % (MANUAL) 6 % (3.4-9.0); NEUTROPHILS % (MANUAL) 68 % (40-74)
[2022-01-27 10:41] LABS: HYPOCHROMASIA MARKED; POIKILOCYTOSIS MARKED; TEAR DROP CELLS FEW
[2022-01-27 10:42] LABS: PLATELET ESTIMATE MARKEDLY DECREASED; PLATELET MORPHOLOGY COMMENT NORMAL
[2022-01-27] MEDS: MUPIROCIN 2% OINT 22 GM TUBE TOP SCH ×2 (11:29→17:45)
[2022-01-27] MEDS: CHOLESTYRAMINE 4 GM PACKET PO SCH ×3 (12:30→22:22)
[2022-01-27] MEDS: IRON SUCROSE 100 MG in SODIUM CHLORIDE 0.9% 100 ML 100 ML IV SCH (13:24)
[2022-01-28] VITALS (13 sets, daily range): BP systolic 92–117; BP diastolic 57–76
[2022-01-28 04:55] LABS: BASOPHILS % 0.6 % (0.0-1.0); EOSINOPHILS # (AUTO) 0.1 (0.0-0.4); EOSINOPHILS % 1.9 % (0.0-6.0); HEMATOCRIT 31.2 % (34.2-44.1); HEMOGLOBIN 10.1 g/dL (12.0-16.0); LYMPHOCYTES # (AUTO) 1.7 (1.0-3.2); LYMPHOCYTES % 35.4 % (18.0-39.1); MEAN CORPUSCULAR HEMOGLOBIN 34.1 pg (28-32); MEAN CORPUSCULAR HGB CONC 32.4 g/dL (31-35); MEAN CORPUSCULAR VOLUME 105.4 fL (81-99); MONOCYTES # (AUTO) 0.3 (0.2-0.8); MONOCYTES % 6.1 % (4.4-11.3); NEUTROPHILS # (AUTO) 2.6 (2.1-6.9); NEUTROPHILS % 55.6 % (38.7-80.0); RED BLOOD COUNT 2.96 x10e6/uL (3.6-5.1); RED CELL DISTRIBUTION WIDTH 21.8 % (11.7-14.4)
[2022-01-28 04:58] LABS: PLATELET COUNT 25 x10e3/uL (140-360)
[2022-01-28 05:32] LABS: ALBUMIN/GLOBULIN RATIO 0.9 (0.8-2.0); ANION GAP 8.4 mmol/L (8-16); CREATININE, SERUM 4.64 mg/dL (0.57-1.11); POTASSIUM 3.4 mmol/L (3.5-5.1)
[2022-01-28 05:51] LABS: CALCIUM 6.7 mg/dL (8.4-10.2)
[2022-01-28] MEDS: MIDODRINE 2.5 MG TAB PO SCH ×4 (08:06→16:00)
[2022-01-28] MEDS: FOLIC ACID 1 MG TAB PO SCH (08:51)
[2022-01-28] MEDS: MUPIROCIN 2% OINT 22 GM TUBE TOP SCH ×2 (08:52→21:54)
[2022-01-28] MEDS: DIPHENOXYLATE/ATROPINE TAB PO SCH (08:52)
[2022-01-28] MEDS: LACTOBACILLUS ACIDOPHILUS CAPSULE PO SCH ×3 (08:52→21:54)
[2022-01-28] MEDS: IRON SUCROSE 100 MG in SODIUM CHLORIDE 0.9% 100 ML 100 ML IV SCH (09:00)
[2022-01-28] MEDS: CHOLESTYRAMINE 4 GM PACKET PO SCH ×3 (10:00→22:44)
[2022-01-28] MEDS ORDERED: NYSTATIN 100,000 UNITS/GM CRM 30GM TUBE TOP SCH (17:00)
[2022-01-28] MEDS: NYSTATIN 100,000 UNITS/GM CRM 30GM TUBE TOP SCH (21:00)
[2022-01-29] VITALS (8 sets, daily range): BP systolic 92–107; BP diastolic 58–66
[2022-01-29] MEDS ORDERED: SODIUM CHLORIDE 0.9% 250ML 250 ML ONE (00:03)
[2022-01-29 05:58] LABS: HEMATOCRIT 30.7 % (34.2-44.1); HEMOGLOBIN 10.2 g/dL (12.0-16.0); MEAN CORPUSCULAR HEMOGLOBIN 34.9 pg (28-32); MEAN CORPUSCULAR HGB CONC 33.2 g/dL (31-35); MEAN CORPUSCULAR VOLUME 105.1 fL (81-99); RED BLOOD COUNT 2.92 x10e6/uL (3.6-5.1); RED CELL DISTRIBUTION WIDTH 21.5 % (11.7-14.4)
[2022-01-29 06:19] LABS: PLATELET COUNT 36 x10e3/uL (140-360)
[2022-01-29 06:23] LABS: ALBUMIN/GLOBULIN RATIO 0.8 (0.8-2.0); ANION GAP 8.3 mmol/L (8-16); CREATININE, SERUM 4.66 mg/dL (0.57-1.11); POTASSIUM 3.3 mmol/L (3.5-5.1)
[2022-01-29 06:25] LABS: CALCIUM 6.8 mg/dL (8.4-10.2)
[2022-01-29 07:06] LABS: EOSINOPHILS % (MANUAL) 1 % (0-7); LYMPHOCYTES % (MANUAL) 17 % (19-48); MONOCYTES % (MANUAL) 7 % (3.4-9.0); NEUTROPHILS % (MANUAL) 75 % (40-74)
[2022-01-29 07:08] LABS: ANISOCYTOSIS MODERATE; PLATELET ESTIMATE MARKEDLY DECREASED; PLATELET MORPHOLOGY COMMENT NORMAL; POLYCHROMASIA FEW; RBC MORPHOLOGY COMMENT ABNORMAL
[2022-01-29] MEDS ORDERED: ONDANSETRON HCL 4 MG ORAL DISINTEGRATING TAB PO PRN (08:45)
[2022-01-29] MEDS: MIDODRINE 2.5 MG TAB PO SCH ×3 (09:13→16:02)
[2022-01-29] MEDS: FOLIC ACID 1 MG TAB PO SCH (09:13)
[2022-01-29] MEDS: IRON SUCROSE 100 MG in SODIUM CHLORIDE 0.9% 100 ML 100 ML IV SCH (09:13)
[2022-01-29] MEDS: NYSTATIN 100,000 UNITS/GM CRM 30GM TUBE TOP SCH ×3 (09:14→21:36)
[2022-01-29] MEDS: LACTOBACILLUS ACIDOPHILUS CAPSULE PO SCH ×3 (09:14→21:36)
[2022-01-29] MEDS: DIPHENOXYLATE/ATROPINE TAB PO SCH (09:14)
[2022-01-29] MEDS: MUPIROCIN 2% OINT 22 GM TUBE TOP SCH ×2 (09:14→22:08)
[2022-01-29] MEDS: CHOLESTYRAMINE 4 GM PACKET PO SCH ×3 (09:15→21:36)
[2022-01-29] MEDS: CALCIUM CARBONATE 500 MG CHEWABLE TABS PO SCH ×2 (12:56→16:02)
[2022-01-29] MEDS: CALCITRIOL 0.25 MCG CAP PO SCH (12:56)
[2022-01-30] VITALS (7 sets, daily range): BP systolic 90–104; BP diastolic 61–70
[2022-01-30] MEDS: MIDODRINE 2.5 MG TAB PO SCH ×3 (08:21→15:43)
[2022-01-30] MEDS: DIPHENOXYLATE/ATROPINE TAB PO SCH (08:21)
[2022-01-30] MEDS: CALCITRIOL 0.25 MCG CAP PO SCH (08:21)
[2022-01-30] MEDS: FOLIC ACID 1 MG TAB PO SCH (08:21)
[2022-01-30] MEDS: CALCIUM CARBONATE 500 MG CHEWABLE TABS PO SCH ×2 (08:21→17:10)
[2022-01-30] MEDS: LACTOBACILLUS ACIDOPHILUS CAPSULE PO SCH ×3 (08:21→22:08)
[2022-01-30] MEDS: MUPIROCIN 2% OINT 22 GM TUBE TOP SCH ×2 (09:51→22:10)
[2022-01-30] MEDS: NYSTATIN 100,000 UNITS/GM CRM 30GM TUBE TOP SCH ×2 (09:51→22:10)
[2022-01-30] MEDS: IRON SUCROSE 100 MG in SODIUM CHLORIDE 0.9% 100 ML 100 ML IV SCH (10:16)
[2022-01-30] MEDS: CHOLESTYRAMINE 4 GM PACKET PO SCH ×3 (11:44→23:06)
[2022-01-31] VITALS (7 sets, daily range): BP systolic 87–103; BP diastolic 52–74
[2022-01-31] MEDS ORDERED: RIFAXIMIN 550 MG TABLET PO STA (01:25)
[2022-01-31] MEDS ORDERED: DICYCLOMINE HCL 20 MG TAB PO ONE (01:30)
[2022-01-31] MEDS ORDERED: DIPHENOXYLATE/ATROPINE TAB PO ONE (01:45)
[2022-01-31] MEDS ORDERED: CITALOPRAM HYDROBROMIDE 20 MG TAB PO ONE (02:00)
[2022-01-31] MEDS: RIFAXIMIN 550 MG TABLET PO SCH ×3 (05:55→22:24)
[2022-01-31] MEDS: DICYCLOMINE HCL 20 MG TAB PO SCH ×4 (09:41→20:39)
[2022-01-31] MEDS: MIDODRINE 2.5 MG TAB PO SCH ×3 (09:41→14:36)
[2022-01-31] MEDS: IRON SUCROSE 100 MG in SODIUM CHLORIDE 0.9% 100 ML 100 ML IV SCH (09:41)
[2022-01-31] MEDS: FOLIC ACID 1 MG TAB PO SCH (09:41)
[2022-01-31] MEDS: CITALOPRAM HYDROBROMIDE 20 MG TAB PO SCH (09:41)
[2022-01-31] MEDS: LACTOBACILLUS ACIDOPHILUS CAPSULE PO SCH ×3 (09:42→20:39)
[2022-01-31] MEDS: CALCITRIOL 0.25 MCG CAP PO SCH (09:42)
[2022-01-31] MEDS: CALCIUM CARBONATE 500 MG CHEWABLE TABS PO SCH ×2 (09:42→17:32)
[2022-01-31] MEDS: DIPHENOXYLATE/ATROPINE TAB PO SCH ×2 (09:42→17:32)
[2022-01-31] MEDS: CHOLESTYRAMINE 4 GM PACKET PO SCH ×3 (12:24→22:24)
[2022-01-31] MEDS: MUPIROCIN 2% OINT 22 GM TUBE TOP SCH ×2 (14:29→20:43)
[2022-01-31] MEDS: NYSTATIN 100,000 UNITS/GM CRM 30GM TUBE TOP SCH ×2 (14:29→20:43)
[2022-02-01 00:23] VITALS: BP 96/61
[2022-02-01] MEDS ORDERED: DIPHENOXYLATE/ATROPINE TAB PO ONE (01:45)
[2022-02-01 04:00] VITALS: BP 102/72
[2022-02-01] MEDS: RIFAXIMIN 550 MG TABLET PO SCH ×3 (06:29→20:51)
[2022-02-01 08:00] VITALS: BP 102/72
[2022-02-01] MEDS: NYSTATIN 100,000 UNITS/GM CRM 30GM TUBE TOP SCH ×2 (09:00→20:51)
[2022-02-01] MEDS: DIPHENOXYLATE/ATROPINE TAB PO SCH ×2 (09:33→16:57)
[2022-02-01] MEDS: MIDODRINE 2.5 MG TAB PO SCH ×3 (09:34→16:57)
[2022-02-01] MEDS: FOLIC ACID 1 MG TAB PO SCH (09:35)
[2022-02-01] MEDS: DICYCLOMINE HCL 20 MG TAB PO SCH ×4 (09:35→20:51)
[2022-02-01] MEDS: CALCITRIOL 0.25 MCG CAP PO SCH (09:35)
[2022-02-01] MEDS: CITALOPRAM HYDROBROMIDE 20 MG TAB PO SCH (09:35)
[2022-02-01] MEDS: LACTOBACILLUS ACIDOPHILUS CAPSULE PO SCH ×3 (09:35→20:51)
[2022-02-01] MEDS: CALCIUM CARBONATE 500 MG CHEWABLE TABS PO SCH ×2 (09:36→16:57)
[2022-02-01] MEDS: IRON SUCROSE 100 MG in SODIUM CHLORIDE 0.9% 100 ML 100 ML IV SCH (09:48)
[2022-02-01 12:31] LABS: BASOPHILS # (AUTO) 0.1 (0.0-0.1); EOSINOPHILS % 0.5 % (0.0-6.0); HEMATOCRIT 34.5 % (34.2-44.1); HEMOGLOBIN 11.3 g/dL (12.0-16.0); LYMPHOCYTES # (AUTO) 1.6 (1.0-3.2); LYMPHOCYTES % 26.6 % (18.0-39.1); MEAN CORPUSCULAR HEMOGLOBIN 34.7 pg (28-32); MEAN CORPUSCULAR HGB CONC 32.8 g/dL (31-35); MEAN CORPUSCULAR VOLUME 105.8 fL (81-99); MONOCYTES # (AUTO) 0.4 (0.2-0.8); MONOCYTES % 7.2 % (4.4-11.3); NEUTROPHILS # (AUTO) 3.8 (2.1-6.9); NEUTROPHILS % 64.4 % (38.7-80.0); RED BLOOD COUNT 3.26 x10e6/uL (3.6-5.1); RED CELL DISTRIBUTION WIDTH 21.9 % (11.7-14.4)
[2022-02-01 12:33] LABS: PLATELET COUNT 37 x10e3/uL (140-360)
[2022-02-01] MEDS: MUPIROCIN 2% OINT 22 GM TUBE TOP SCH (12:48)
[2022-02-01 12:51] LABS: ALBUMIN 1.6 g/dL (3.5-5.0); ALBUMIN/GLOBULIN RATIO 0.7 (0.8-2.0); ALKALINE PHOSPHATASE 175 IU/L (40-150); ANION GAP 7.2 mmol/L (8-16); BLOOD UREA NITROGEN 11 mg/dL (7-26); BUN/CREATININE RATIO 3 (6-25); CARBON DIOXIDE 19 mmol/L (22-29); CHLORIDE 116 mmol/L (98-107); EST GLOMERULAR FILTRATION RATE 10 ML/MIN (60-); GLUCOSE 148 mg/dL (74-118); MAGNESIUM 1.2 MG/DL (1.3-2.1); POTASSIUM 3.2 mmol/L (3.5-5.1); SODIUM 139 mmol/L (136-145)
[2022-02-01 12:52] LABS: ALANINE AMINOTRANSFERASE < 6 IU/L (0-55)
[2022-02-01] MEDS ORDERED: POTASSIUM CHLORIDE 20 MEQ TAB CR PO ONE (13:30)
[2022-02-01 20:11] VITALS: BP 106/58
[2022-02-01 21:32] VITALS: BP 106/58
[2022-02-02] VITALS (8 sets, daily range): BP systolic 84–103; BP diastolic 53–71
[2022-02-02] MEDS: RIFAXIMIN 550 MG TABLET PO SCH ×3 (05:14→21:23)
[2022-02-02] MEDS ORDERED: MAGNESIUM SULFATE 2GM/50ML 50 ML IV ONE (05:30)
[2022-02-02 06:17] LABS: BASOPHILS # (AUTO) 0.1 (0.0-0.1); BASOPHILS % 0.9 % (0.0-1.0); EOSINOPHILS # (AUTO) 0.1 (0.0-0.4); EOSINOPHILS % 1.4 % (0.0-6.0); HEMATOCRIT 33.4 % (34.2-44.1); HEMOGLOBIN 11.2 g/dL (12.0-16.0); LYMPHOCYTES # (AUTO) 2.6 (1.0-3.2); LYMPHOCYTES % 41.5 % (18.0-39.1); MEAN CORPUSCULAR HEMOGLOBIN 35.8 pg (28-32); MEAN CORPUSCULAR HGB CONC 33.5 g/dL (31-35); MEAN CORPUSCULAR VOLUME 106.7 fL (81-99); MONOCYTES # (AUTO) 0.5 (0.2-0.8); MONOCYTES % 7.1 % (4.4-11.3); NEUTROPHILS # (AUTO) 3.1 (2.1-6.9); NEUTROPHILS % 48.5 % (38.7-80.0); RED BLOOD COUNT 3.13 x10e6/uL (3.6-5.1); RED CELL DISTRIBUTION WIDTH 21.8 % (11.7-14.4)
[2022-02-02 06:28] LABS: PLATELET COUNT 41 x10e3/uL (140-360)
[2022-02-02 06:37] LABS: ALBUMIN 1.8 g/dL (3.5-5.0); ALBUMIN/GLOBULIN RATIO 0.7 (0.8-2.0); ALKALINE PHOSPHATASE 198 IU/L (40-150); ANION GAP 7.1 mmol/L (8-16); BLOOD UREA NITROGEN 15 mg/dL (7-26); BUN/CREATININE RATIO 3 (6-25); CALCIUM 7.1 mg/dL (8.4-10.2); CARBON DIOXIDE 22 mmol/L (22-29); CHLORIDE 112 mmol/L (98-107); CREATININE, SERUM 5.58 mg/dL (0.57-1.11); EST GLOMERULAR FILTRATION RATE 8 ML/MIN (60-); GLUCOSE 108 mg/dL (74-118); POTASSIUM 4.1 mmol/L (3.5-5.1); SODIUM 137 mmol/L (136-145)
[2022-02-02 06:58] LABS: ALANINE AMINOTRANSFERASE < 6 IU/L (0-55)
[2022-02-02] MEDS: NYSTATIN 100,000 UNITS/GM CRM 30GM TUBE TOP SCH ×2 (09:00→21:23)
[2022-02-02 09:02] LABS: ANISOCYTOSIS MODERATE; PLATELET ESTIMATE MARKEDLY DECREASED; PLATELET MORPHOLOGY COMMENT NORMAL; RBC MORPHOLOGY COMMENT ABNORMAL
[2022-02-02] MEDS: MIDODRINE 2.5 MG TAB PO SCH ×3 (09:12→16:34)
[2022-02-02] MEDS: FOLIC ACID 1 MG TAB PO SCH (09:14)
[2022-02-02] MEDS: CITALOPRAM HYDROBROMIDE 20 MG TAB PO SCH (09:14)
[2022-02-02] MEDS: DICYCLOMINE HCL 20 MG TAB PO SCH ×4 (09:14→21:23)
[2022-02-02] MEDS: CALCITRIOL 0.25 MCG CAP PO SCH (09:15)
[2022-02-02] MEDS: DIPHENOXYLATE/ATROPINE TAB PO SCH ×2 (09:15→16:14)
[2022-02-02] MEDS: CALCIUM CARBONATE 500 MG CHEWABLE TABS PO SCH ×2 (09:15→16:14)
[2022-02-02] MEDS: LACTOBACILLUS ACIDOPHILUS CAPSULE PO SCH ×3 (09:15→21:23)
[2022-02-03] VITALS (8 sets, daily range): BP systolic 90–104; BP diastolic 54–65
[2022-02-03] MEDS: RIFAXIMIN 550 MG TABLET PO SCH ×3 (05:16→22:23)
[2022-02-03] MEDS ORDERED: MAGNESIUM SULFATE 2GM/50ML 50 ML IV ONE (05:45)
[2022-02-03] MEDS: MIDODRINE 2.5 MG TAB PO SCH ×3 (08:50→16:40)
[2022-02-03] MEDS: LACTOBACILLUS ACIDOPHILUS CAPSULE PO SCH ×3 (08:50→22:23)
[2022-02-03] MEDS: CITALOPRAM HYDROBROMIDE 20 MG TAB PO SCH (08:50)
[2022-02-03] MEDS: CALCIUM CARBONATE 500 MG CHEWABLE TABS PO SCH ×2 (08:50→16:40)
[2022-02-03] MEDS: DICYCLOMINE HCL 20 MG TAB PO SCH ×4 (08:50→22:23)
[2022-02-03] MEDS: FOLIC ACID 1 MG TAB PO SCH (08:50)
[2022-02-03] MEDS: CALCITRIOL 0.25 MCG CAP PO SCH (08:50)
[2022-02-03] MEDS: DIPHENOXYLATE/ATROPINE TAB PO SCH ×2 (08:50→16:40)
[2022-02-03] MEDS: NYSTATIN 100,000 UNITS/GM CRM 30GM TUBE TOP SCH ×2 (08:52→22:23)
[2022-02-03] MEDS ORDERED: DIGOXIN INJ 0.25 MG/ML 2 ML AMP IV ONE (13:30)
[2022-02-03] MEDS: AMIODARONE HCL 200 MG TAB PO SCH (18:11)
[2022-02-04] VITALS (7 sets, daily range): BP systolic 93–105; BP diastolic 51–74
[2022-02-04] MEDS: RIFAXIMIN 550 MG TABLET PO SCH ×3 (05:12→20:31)
[2022-02-04 05:16] LABS: BASOPHILS # (AUTO) 0.1 (0.0-0.1); BASOPHILS % 1.4 % (0.0-1.0); EOSINOPHILS # (AUTO) 0.1 (0.0-0.4); EOSINOPHILS % 1.4 % (0.0-6.0); HEMATOCRIT 33.1 % (34.2-44.1); HEMOGLOBIN 11.1 g/dL (12.0-16.0); LYMPHOCYTES # (AUTO) 1.9 (1.0-3.2); LYMPHOCYTES % 38.2 % (18.0-39.1); MEAN CORPUSCULAR HEMOGLOBIN 34.5 pg (28-32); MEAN CORPUSCULAR HGB CONC 33.5 g/dL (31-35); MEAN CORPUSCULAR VOLUME 102.8 fL (81-99); MONOCYTES # (AUTO) 0.4 (0.2-0.8); MONOCYTES % 7.9 % (4.4-11.3); NEUTROPHILS # (AUTO) 2.5 (2.1-6.9); NEUTROPHILS % 50.9 % (38.7-80.0); RED BLOOD COUNT 3.22 x10e6/uL (3.6-5.1); RED CELL DISTRIBUTION WIDTH 21.1 % (11.7-14.4)
[2022-02-04 05:35] LABS: ALBUMIN 1.8 g/dL (3.5-5.0); ALBUMIN/GLOBULIN RATIO 0.6 (0.8-2.0); ALKALINE PHOSPHATASE 219 IU/L (40-150); BLOOD UREA NITROGEN 15 mg/dL (7-26); BUN/CREATININE RATIO 3 (6-25); CALCIUM 7.3 mg/dL (8.4-10.2); CARBON DIOXIDE 23 mmol/L (22-29); CHLORIDE 109 mmol/L (98-107); CREATININE, SERUM 5.41 mg/dL (0.57-1.11); EST GLOMERULAR FILTRATION RATE 8 ML/MIN (60-); GLUCOSE 117 mg/dL (74-118); MAGNESIUM 1.9 MG/DL (1.3-2.1); SODIUM 137 mmol/L (136-145)
[2022-02-04 05:48] LABS: ALANINE AMINOTRANSFERASE < 6 IU/L (0-55)
[2022-02-04 05:58] LABS: PLATELET COUNT 39 x10e3/uL (140-360)
[2022-02-04] MEDS: NYSTATIN 100,000 UNITS/GM CRM 30GM TUBE TOP SCH (09:24)
[2022-02-04] MEDS: AMIODARONE HCL 200 MG TAB PO SCH (09:45)
[2022-02-04] MEDS: DICYCLOMINE HCL 20 MG TAB PO SCH ×4 (09:45→20:31)
[2022-02-04] MEDS: CALCIUM CARBONATE 500 MG CHEWABLE TABS PO SCH ×2 (09:45→17:00)
[2022-02-04] MEDS: CITALOPRAM HYDROBROMIDE 20 MG TAB PO SCH (09:45)
[2022-02-04] MEDS: CALCITRIOL 0.25 MCG CAP PO SCH (09:45)
[2022-02-04] MEDS: LACTOBACILLUS ACIDOPHILUS CAPSULE PO SCH ×3 (09:45→20:31)
[2022-02-04] MEDS: FOLIC ACID 1 MG TAB PO SCH (09:45)
[2022-02-04] MEDS: MIDODRINE 2.5 MG TAB PO SCH ×3 (09:45→17:00)
[2022-02-04] MEDS: DIPHENOXYLATE/ATROPINE TAB PO SCH ×2 (09:45→17:00)
[2022-02-04] MEDS ORDERED: ALBUMIN 25% 12.5GM 0.25 GM/ML BTL IV PRN (13:45)
[2022-02-04] MEDS: PANTOPRAZOLE SOD 40 MG TABEC PO SCH (17:00)
[2022-02-05] VITALS (8 sets, daily range): BP systolic 93–106; BP diastolic 57–87
[2022-02-05] MEDS: RIFAXIMIN 550 MG TABLET PO SCH ×3 (06:44→21:21)
[2022-02-05] MEDS: PANTOPRAZOLE SOD 40 MG TABEC PO SCH ×2 (06:44→17:02)
[2022-02-05] MEDS: DICYCLOMINE HCL 20 MG TAB PO SCH ×4 (08:29→21:21)
[2022-02-05] MEDS: MIDODRINE 2.5 MG TAB PO SCH ×3 (08:29→17:02)
[2022-02-05] MEDS: CITALOPRAM HYDROBROMIDE 20 MG TAB PO SCH (08:29)
[2022-02-05] MEDS: AMIODARONE HCL 200 MG TAB PO SCH (08:29)
[2022-02-05] MEDS: FOLIC ACID 1 MG TAB PO SCH (08:30)
[2022-02-05] MEDS: CALCIUM CARBONATE 500 MG CHEWABLE TABS PO SCH ×2 (08:30→17:03)
[2022-02-05] MEDS: LACTOBACILLUS ACIDOPHILUS CAPSULE PO SCH ×3 (08:30→21:21)
[2022-02-05] MEDS: CALCITRIOL 0.25 MCG CAP PO SCH (08:30)
[2022-02-05] MEDS: DIPHENOXYLATE/ATROPINE TAB PO SCH ×2 (08:30→17:02)
[2022-02-06] VITALS (7 sets, daily range): BP systolic 95–111; BP diastolic 60–67
[2022-02-06] MEDS: RIFAXIMIN 550 MG TABLET PO SCH ×3 (06:19→21:33)
[2022-02-06] MEDS: PANTOPRAZOLE SOD 40 MG TABEC PO SCH ×2 (07:30→16:48)
[2022-02-06] MEDS: MIDODRINE 2.5 MG TAB PO SCH ×3 (08:43→16:48)
[2022-02-06 08:44] LABS: BASOPHILS # (AUTO) 0.1 (0.0-0.1); BASOPHILS % 1.3 % (0.0-1.0); EOSINOPHILS # (AUTO) 0.1 (0.0-0.4); EOSINOPHILS % 1.1 % (0.0-6.0); HEMATOCRIT 30.2 % (34.2-44.1); HEMOGLOBIN 10.1 g/dL (12.0-16.0); LYMPHOCYTES % 43.1 % (18.0-39.1); MEAN CORPUSCULAR HEMOGLOBIN 34.7 pg (28-32); MEAN CORPUSCULAR HGB CONC 33.4 g/dL (31-35); MEAN CORPUSCULAR VOLUME 103.8 fL (81-99); MONOCYTES # (AUTO) 0.3 (0.2-0.8); MONOCYTES % 5.7 % (4.4-11.3); NEUTROPHILS # (AUTO) 2.2 (2.1-6.9); NEUTROPHILS % 48.6 % (38.7-80.0); RED BLOOD COUNT 2.91 x10e6/uL (3.6-5.1); RED CELL DISTRIBUTION WIDTH 21.2 % (11.7-14.4)
[2022-02-06] MEDS: CALCIUM CARBONATE 500 MG CHEWABLE TABS PO SCH ×2 (08:44→16:48)
[2022-02-06] MEDS: DIPHENOXYLATE/ATROPINE TAB PO SCH ×2 (08:44→16:48)
[2022-02-06] MEDS: LACTOBACILLUS ACIDOPHILUS CAPSULE PO SCH ×3 (08:44→21:33)
[2022-02-06] MEDS: DICYCLOMINE HCL 20 MG TAB PO SCH ×4 (08:44→21:33)
[2022-02-06 08:49] LABS: PLATELET COUNT 36 x10e3/uL (140-360)
[2022-02-06] MEDS: FOLIC ACID 1 MG TAB PO SCH (09:00)
[2022-02-06] MEDS: CALCITRIOL 0.25 MCG CAP PO SCH (09:00)
[2022-02-06 09:13] LABS: ALBUMIN 1.9 g/dL (3.5-5.0); ALBUMIN/GLOBULIN RATIO 0.7 (0.8-2.0); ANION GAP 9.7 mmol/L (8-16); CALCIUM 7.1 mg/dL (8.4-10.2); CREATININE, SERUM 4.93 mg/dL (0.57-1.11); POTASSIUM 3.7 mmol/L (3.5-5.1)
[2022-02-06] MEDS: CITALOPRAM HYDROBROMIDE 20 MG TAB PO SCH (14:03)
[2022-02-06] MEDS: AMIODARONE HCL 200 MG TAB PO SCH (14:03)
[2022-02-07] VITALS (8 sets, daily range): BP systolic 90–108; BP diastolic 57–71
[2022-02-07] MEDS: RIFAXIMIN 550 MG TABLET PO SCH ×3 (06:57→22:00)
[2022-02-07] MEDS: MIDODRINE 2.5 MG TAB PO SCH ×3 (08:00→16:00)
[2022-02-07] MEDS: PANTOPRAZOLE SOD 40 MG TABEC PO SCH ×2 (09:56→17:19)
[2022-02-07] MEDS: DICYCLOMINE HCL 20 MG TAB PO SCH ×4 (09:57→21:00)
[2022-02-07] MEDS: LACTOBACILLUS ACIDOPHILUS CAPSULE PO SCH ×3 (09:58→21:00)
[2022-02-07] MEDS: AMIODARONE HCL 200 MG TAB PO SCH (09:58)
[2022-02-07] MEDS: CALCIUM CARBONATE 500 MG CHEWABLE TABS PO SCH ×2 (09:58→17:19)
[2022-02-07] MEDS: DIPHENOXYLATE/ATROPINE TAB PO SCH ×2 (09:58→17:19)
[2022-02-07] MEDS: FOLIC ACID 1 MG TAB PO SCH (09:58)
[2022-02-07] MEDS: CITALOPRAM HYDROBROMIDE 20 MG TAB PO SCH (09:58)
[2022-02-07] MEDS: CALCITRIOL 0.25 MCG CAP PO SCH (09:58)
[2022-02-08] VITALS: BP 99/59
[2022-02-08 04:00] VITALS: BP 98/55
[2022-02-08] MEDS: RIFAXIMIN 550 MG TABLET PO SCH ×2 (07:19→14:00)
[2022-02-08 09:09] VITALS: BP 91/76
[2022-02-08] MEDS: PANTOPRAZOLE SOD 40 MG TABEC PO SCH (09:12)
[2022-02-08] MEDS: DICYCLOMINE HCL 20 MG TAB PO SCH ×2 (09:13→12:12)
[2022-02-08] MEDS: AMIODARONE HCL 200 MG TAB PO SCH (09:13)
[2022-02-08] MEDS: MIDODRINE 2.5 MG TAB PO SCH ×2 (09:13→12:12)
[2022-02-08] MEDS: CITALOPRAM HYDROBROMIDE 20 MG TAB PO SCH (09:13)
[2022-02-08] MEDS: CALCIUM CARBONATE 500 MG CHEWABLE TABS PO SCH (09:14)
[2022-02-08] MEDS: LACTOBACILLUS ACIDOPHILUS CAPSULE PO SCH ×2 (09:14→15:00)
[2022-02-08] MEDS: FOLIC ACID 1 MG TAB PO SCH (09:14)
[2022-02-08] MEDS: CALCITRIOL 0.25 MCG CAP PO SCH (09:14)
[2022-02-08 12:41] VITALS: BP 107/72
== END 2022-02-08 16:15 | disposition home or self-care (01) | DRG 871 ==
LOC: ER 12:25 → ERHOLD 14:30 → ICU 18:12 → MED/SURG 01-28 12:39
PROVIDERS: ADMIT Internal Medicine; ATTEND Internal Medicine
PROC: 02HV33Z Insertion of Infusion Device into Superior Vena Cava, Percutaneous Approach (ICD-10-PCS; 2022-01-22)
PROC: 30243N1 Transfusion of Nonautologous Red Blood Cells into Central Vein, Percutaneous Approach (ICD-10-PCS; 2022-01-22)
PROC: 30243R1 Transfusion of Nonautologous Platelets into Central Vein, Percutaneous Approach (ICD-10-PCS; 2022-01-22)
PROC: XW043N5 Introduction of Meropenem-vaborbactam Anti-infective into Central Vein, Percutaneous Approach, New Technology Group 5 (ICD-10-PCS; 2022-01-22)
PROC: 3E043XZ Introduction of Vasopressor into Central Vein, Percutaneous Approach (ICD-10-PCS; 2022-01-22)
PROC: 5A1D70Z Performance of Urinary Filtration, Intermittent, Less than 6 Hours Per Day (ICD-10-PCS; principal; 2022-01-23)
PROC: 30243K1 Transfusion of Nonautologous Frozen Plasma into Central Vein, Percutaneous Approach (ICD-10-PCS; 2022-01-26)
DX: A41.51 Sepsis due to Escherichia coli [E. coli] (principal); N18.6 End stage renal disease; R65.21 Severe sepsis with septic shock; I12.0 Hypertensive chronic kidney disease with stage 5 chronic kidney disease or end stage renal disease; Z16.24 Resistance to multiple antibiotics; D61.818 Other pancytopenia; K76.6 Portal hypertension; R18.8 Other ascites; D68.4 Acquired coagulation factor deficiency; E46 Unspecified protein-calorie malnutrition; D63.8 Anemia in other chronic diseases classified elsewhere; K74.60 Unspecified cirrhosis of liver; E11.22 Type 2 diabetes mellitus with diabetic chronic kidney disease; I95.89 Other hypotension; D53.1 Other megaloblastic anemias, not elsewhere classified; E83.51 Hypocalcemia; E77.8 Other disorders of glycoprotein metabolism; K52.9 Noninfective gastroenteritis and colitis, unspecified; I48.0 Paroxysmal atrial fibrillation; Z99.2 Dependence on renal dialysis; Z86.73 Personal history of transient ischemic attack (TIA), and cerebral infarction without residual deficits; E87.6 Hypokalemia; Z79.01 Long term (current) use of anticoagulants; Z79.899 Other long term (current) drug therapy; E78.5 Hyperlipidemia, unspecified; I25.10 Atherosclerotic heart disease of native coronary artery without angina pectoris; D73.1 Hypersplenism; R53.81 Other malaise; E66.01 Morbid (severe) obesity due to excess calories; Z68.34 Body mass index [BMI] 34.0-34.9, adult; F41.9 Anxiety disorder, unspecified; Z88.1 Allergy status to other antibiotic agents; Z88.5 Allergy status to narcotic agent; Z88.0 Allergy status to penicillin; Z88.2 Allergy status to sulfonamides; E03.9 Hypothyroidism, unspecified; Z85.3 Personal history of malignant neoplasm of breast
CPT/HCPCS: 36415; 71045; 74176; 80053; 80061; 80162; 81001; 82140; 82270; 82550; 82553; 82607; 82746; 82948; 83540; 83605; 83630; 83735; 83880; 84466; 84484; 85007; 85025; 85027; 85045; 85384; 85610; 85730; 86850; 86900; 86920; 87040; 87045; 87081; 87086; 87177; 87186; 87493; 90962; 93005; 94799; 97139; 99251; 99285; J0696; J1160; J1756; J2185; J3370; J3475; J3480; J7030; J7040; J7050; P9016; P9017; P9034; P9047; U0002

== ENCOUNTER 2022-02-20 00:34 | Emergency (ER) | payer MEDICARE, OTHER ==
[~2022-02-20] VITALS: Ht 327.7 cm; Wt 105.7 kg
[~2022-02-20 00:34] MED LIST changes: +AMIODARONE HCL100 MG PO; +ATORVASTATIN CA20 MG PO; +ELIQUIS5 MG PO; +NEURONTIN100 MG PO
== END 2022-02-20 02:45 | disposition home or self-care (01) ==
LOC: ER 00:39
DX: S00.83XA Contusion of other part of head, initial encounter (principal); S00.81XA Abrasion of other part of head, initial encounter; M25.512 Pain in left shoulder; M25.511 Pain in right shoulder; W01.0XXA Fall on same level from slipping, tripping and stumbling without subsequent striking against object, initial encounter; Y93.01 Activity, walking, marching and hiking; Y92.098 Other place in other non-institutional residence as the place of occurrence of the external cause; E11.22 Type 2 diabetes mellitus with diabetic chronic kidney disease; N18.6 End stage renal disease; Z99.2 Dependence on renal dialysis; E03.9 Hypothyroidism, unspecified; Z85.3 Personal history of malignant neoplasm of breast
CPT/HCPCS: 70450; 70486; 72125; 99283

== ENCOUNTER 2022-03-11 15:05 | Inpatient (IN) | payer MEDICARE ==
[~2022-03-11] VITALS: Ht 175.3 cm; Wt 98.0 kg
[2022-03-11] VITALS (11 sets, daily range): BP systolic 64–97; BP diastolic 46–68
[2022-03-11 16:45] LABS: BASOPHILS % 0.5 % (0.0-1.0); EOSINOPHILS % 0.5 % (0.0-6.0); HEMATOCRIT 24.2 % (34.2-44.1); HEMOGLOBIN 7.8 g/dL (12.0-16.0); LYMPHOCYTES # (AUTO) 1.2 (1.0-3.2); LYMPHOCYTES % 29.9 % (18.0-39.1); MEAN CORPUSCULAR HEMOGLOBIN 34.2 pg (28-32); MEAN CORPUSCULAR HGB CONC 32.2 g/dL (31-35); MEAN CORPUSCULAR VOLUME 106.1 fL (81-99); MONOCYTES # (AUTO) 0.2 (0.2-0.8); MONOCYTES % 4.6 % (4.4-11.3); NEUTROPHILS # (AUTO) 2.6 (2.1-6.9); RED BLOOD COUNT 2.28 x10e6/uL (3.6-5.1); RED CELL DISTRIBUTION WIDTH 17.6 % (11.7-14.4)
[2022-03-11 16:46] LABS: PLATELET COUNT 53 x10e3/uL (140-360)
[2022-03-11 16:51] LABS: INR 2.48; PROTHROMBIN TIME 28.7 seconds (11.9-14.5)
[2022-03-11 16:52] LABS: PARTIAL THROMBOPLASTIN TIME 57.8 seconds (23.8-35.5)
[2022-03-11 16:58] LABS: ALBUMIN 1.8 g/dL (3.5-5.0); ALBUMIN/GLOBULIN RATIO 0.5 (0.8-2.0); ANION GAP 19.2 mmol/L (8-16); CREATININE, SERUM 4.78 mg/dL (0.57-1.11); POTASSIUM 4.2 mmol/L (3.5-5.1)
[2022-03-11 17:00] LABS: CALCIUM 6.8 mg/dL (8.4-10.2)
[2022-03-11 17:05] LABS: CREATINE KINASE MB 1.6 ng/mL (0-5.0)
[2022-03-11] MEDS ORDERED: SODIUM CHLORIDE 0.9% 500ML 500 ML IV STA ×2 (17:09→17:10)
[2022-03-11] MEDS ORDERED: CALCIUM GLUC 1 G/50 ML NACL 50 ML IV ONE (17:15)
[2022-03-11] MEDS ORDERED: ALBUMIN 25% 25GM 100ML 0.25 GM/ML BTL IV ONE (18:45)
[2022-03-11] MEDS ORDERED: ALBUMIN 25% 25GM 100ML 100 ML IV ONE (19:15)
[2022-03-11] MEDS ORDERED: MIDODRINE HCL 5 MG TABLET PO ONE (19:15)
[2022-03-11] MEDS ORDERED: SUCRALFATE 1 GM TAB PO SCH (21:00)
[2022-03-11] MEDS: ATORVASTATIN 40 MG TAB PO SCH (21:38)
[2022-03-12] VITALS (25 sets, daily range): BP systolic 74–114; BP diastolic 24–82
[2022-03-12 05:03] LABS: BASOPHILS % 0.6 % (0.0-1.0); EOSINOPHILS # (AUTO) 0.1 (0.0-0.4); EOSINOPHILS % 1.5 % (0.0-6.0); LYMPHOCYTES # (AUTO) 1.3 (1.0-3.2); LYMPHOCYTES % 39.5 % (18.0-39.1); MEAN CORPUSCULAR HEMOGLOBIN 34.3 pg (28-32); MEAN CORPUSCULAR VOLUME 110.7 fL (81-99); MONOCYTES # (AUTO) 0.2 (0.2-0.8); MONOCYTES % 6.9 % (4.4-11.3); NEUTROPHILS # (AUTO) 1.7 (2.1-6.9); NEUTROPHILS % 50.9 % (38.7-80.0); RED BLOOD COUNT 1.78 x10e6/uL (3.6-5.1); RED CELL DISTRIBUTION WIDTH 17.8 % (11.7-14.4)
[2022-03-12 05:05] LABS: HEMATOCRIT 19.7 % (34.2-44.1); HEMOGLOBIN 6.1 g/dL (12.0-16.0); PLATELET COUNT 40 x10e3/uL (140-360)
[2022-03-12] MEDS ORDERED: SODIUM CHLORIDE 0.9% 250ML 250 ML IV ONE ×2 (05:15→09:15)
[2022-03-12 05:28] LABS: ANION GAP 13.9 mmol/L (8-16); CREATININE, SERUM 4.95 mg/dL (0.57-1.11); POTASSIUM 3.9 mmol/L (3.5-5.1)
[2022-03-12 05:31] LABS: CALCIUM 6.3 mg/dL (8.4-10.2)
[2022-03-12] MEDS: LEVOTHYROXINE SODIUM 50 MCG TAB PO SCH (06:15)
[2022-03-12 06:17] LABS: FREE T4 (FREE THYROXINE) 0.62 ng/dL (0.8-1.8); THYROID STIMULATING HORMONE 5.676 uIU/mL (0.350-4.940)
[2022-03-12] MEDS ORDERED: CALCIUM GLUC 1 G/50 ML NACL 50 ML IV ONE (07:30)
[2022-03-12] MEDS: MIDODRINE HCL 5 MG TABLET PO SCH ×3 (07:39→15:28)
[2022-03-12] MEDS ORDERED: DIGOXIN INJ 0.25 MG/ML 2 ML AMP IV ONE (07:45)
[2022-03-12] MEDS: ASPIRIN 81 MG CHEW TAB PO SCH (08:05)
[2022-03-12] MEDS: AMIODARONE HCL 200 MG TAB PO SCH (08:05)
[2022-03-12] MEDS: CITALOPRAM HYDROBROMIDE 20 MG TAB PO SCH (08:05)
[2022-03-12] MEDS: PANTOPRAZOLE SOD 40 MG TABEC PO SCH ×2 (08:05→16:05)
[2022-03-12 09:16] LABS: LYMPHOCYTES % (MANUAL) 52 % (19-48); MONOCYTES % (MANUAL) 4 % (3.4-9.0); NEUTROPHILS % (MANUAL) 44 % (40-74); PLATELET ESTIMATE MARKEDLY DECREASED; PLATELET MORPHOLOGY COMMENT NORMAL; RBC MORPHOLOGY COMMENT NORMAL
[2022-03-12] MEDS ORDERED: SODIUM CHLORIDE 0.9% 1000ML 1,000 ML ONE (10:31)
[2022-03-12] MEDS ORDERED: DIPHENOXYLATE/ATROPINE TAB PO ONE (11:55)
[2022-03-12] MEDS: SUCRALFATE 1 GM TAB PO SCH ×2 (16:21→21:51)
[2022-03-12] MEDS ORDERED: SODIUM CHLORIDE 0.9% 1000ML 2,000 ML IV PRN (16:45)
[2022-03-12] MEDS ORDERED: SODIUM CHLORIDE 0.9% 250ML 250 ML ONE (17:16)
[2022-03-12] MEDS ORDERED: ALBUMIN 25% 12.5GM 50ML 100 ML IV ONE (18:46)
[2022-03-12] MEDS: ATORVASTATIN 40 MG TAB PO SCH (21:51)
[2022-03-12] MEDS: GABAPENTIN 100 MG CAP PO SCH (21:51)
[2022-03-13] VITALS (26 sets, daily range): BP systolic 76–105; BP diastolic 45–76
[2022-03-13 04:58] LABS: BASOPHILS % 0.5 % (0.0-1.0); EOSINOPHILS # (AUTO) 0.1 (0.0-0.4); EOSINOPHILS % 1.3 % (0.0-6.0); HEMATOCRIT 24.8 % (34.2-44.1); LYMPHOCYTES # (AUTO) 1.2 (1.0-3.2); LYMPHOCYTES % 31.3 % (18.0-39.1); MEAN CORPUSCULAR HEMOGLOBIN 32.9 pg (28-32); MEAN CORPUSCULAR HGB CONC 32.3 g/dL (31-35); MEAN CORPUSCULAR VOLUME 102.1 fL (81-99); MONOCYTES # (AUTO) 0.2 (0.2-0.8); NEUTROPHILS # (AUTO) 2.3 (2.1-6.9); NEUTROPHILS % 61.1 % (38.7-80.0); RED BLOOD COUNT 2.43 x10e6/uL (3.6-5.1); RED CELL DISTRIBUTION WIDTH 20.6 % (11.7-14.4)
[2022-03-13 05:01] LABS: PLATELET COUNT 43 x10e3/uL (140-360)
[2022-03-13 05:22] LABS: ALBUMIN/GLOBULIN RATIO 0.7 (0.8-2.0); ANION GAP 11.1 mmol/L (8-16); CREATININE, SERUM 4.03 mg/dL (0.57-1.11); POTASSIUM 3.1 mmol/L (3.5-5.1)
[2022-03-13 05:29] LABS: CALCIUM 6.8 mg/dL (8.4-10.2)
[2022-03-13] MEDS: LEVOTHYROXINE SODIUM 50 MCG TAB PO SCH (05:35)
[2022-03-13] MEDS ORDERED: POTASSIUM CHLORIDE 20 MEQ TAB CR PO STA (07:41)
[2022-03-13] MEDS: CITALOPRAM HYDROBROMIDE 20 MG TAB PO SCH (08:09)
[2022-03-13] MEDS: AMIODARONE HCL 200 MG TAB PO SCH (08:09)
[2022-03-13] MEDS: ASPIRIN 81 MG CHEW TAB PO SCH (08:09)
[2022-03-13] MEDS: MIDODRINE HCL 5 MG TABLET PO SCH ×3 (08:09→15:49)
[2022-03-13] MEDS: DIPHENOXYLATE/ATROPINE TAB PO PRN ×3 (08:11→20:21)
[2022-03-13] MEDS: PANTOPRAZOLE SOD 40 MG TABEC PO SCH ×2 (08:14→15:49)
[2022-03-13] MEDS: SUCRALFATE 1 GM TAB PO SCH ×4 (08:19→20:21)
[2022-03-13] MEDS: FLUDROCORTISONE ACETATE 0.1 MG TAB PO SCH (10:10)
[2022-03-13] MEDS ORDERED: MIDODRINE HCL 5 MG TABLET PO SCH (12:00)
[2022-03-13] MEDS: CHOLESTYRAMINE 4 GM PACKET PO SCH (14:16)
[2022-03-13] MEDS ORDERED: ALBUMIN 25% 12.5GM 0.25 GM/ML BTL IV PRN (16:45)
[2022-03-13] MEDS: ATORVASTATIN 40 MG TAB PO SCH (20:21)
[2022-03-13] MEDS: GABAPENTIN 100 MG CAP PO SCH (20:21)
[2022-03-14] VITALS (26 sets, daily range): BP systolic 78–112; BP diastolic 47–93
[2022-03-14] MEDS: LEVOTHYROXINE SODIUM 50 MCG TAB PO SCH (05:05)
[2022-03-14] MEDS: SUCRALFATE 1 GM TAB PO SCH ×4 (07:41→21:12)
[2022-03-14] MEDS: MIDODRINE HCL 5 MG TABLET PO SCH ×3 (07:41→16:01)
[2022-03-14] MEDS: DIPHENOXYLATE/ATROPINE TAB PO PRN (07:43)
[2022-03-14] MEDS: ASPIRIN 81 MG CHEW TAB PO SCH (08:05)
[2022-03-14] MEDS: CHOLESTYRAMINE 4 GM PACKET PO SCH (08:05)
[2022-03-14] MEDS: PANTOPRAZOLE SOD 40 MG TABEC PO SCH ×2 (08:05→16:01)
[2022-03-14] MEDS: FLUDROCORTISONE ACETATE 0.1 MG TAB PO SCH (08:05)
[2022-03-14] MEDS: CITALOPRAM HYDROBROMIDE 20 MG TAB PO SCH (08:05)
[2022-03-14] MEDS: AMIODARONE HCL 200 MG TAB PO SCH (08:05)
[2022-03-14] MEDS: ATORVASTATIN 40 MG TAB PO SCH (21:12)
[2022-03-14] MEDS: GABAPENTIN 100 MG CAP PO SCH (21:12)
[2022-03-15] VITALS (58 sets, daily range): BP systolic 58–112; BP diastolic 34–96
[2022-03-15] MEDS: LEVOTHYROXINE SODIUM 75 MCG TAB PO SCH (06:28)
[2022-03-15 07:25] LABS: BASOPHILS % 0.4 % (0.0-1.0); EOSINOPHILS # (AUTO) 0.1 (0.0-0.4); EOSINOPHILS % 1.7 % (0.0-6.0); HEMATOCRIT 27.4 % (34.2-44.1); HEMOGLOBIN 8.7 g/dL (12.0-16.0); LYMPHOCYTES % 40.5 % (18.0-39.1); MEAN CORPUSCULAR HEMOGLOBIN 33.1 pg (28-32); MEAN CORPUSCULAR HGB CONC 31.8 g/dL (31-35); MEAN CORPUSCULAR VOLUME 104.2 fL (81-99); MONOCYTES # (AUTO) 0.3 (0.2-0.8); MONOCYTES % 5.2 % (4.4-11.3); NEUTROPHILS # (AUTO) 2.5 (2.1-6.9); NEUTROPHILS % 52.2 % (38.7-80.0); RED BLOOD COUNT 2.63 x10e6/uL (3.6-5.1); RED CELL DISTRIBUTION WIDTH 19.8 % (11.7-14.4)
[2022-03-15 07:33] LABS: PLATELET COUNT 47 x10e3/uL (140-360)
[2022-03-15 07:39] LABS: INR 2.07; PROTHROMBIN TIME 24.9 seconds (11.9-14.5)
[2022-03-15 07:42] LABS: ALBUMIN 1.6 g/dL (3.5-5.0); ALBUMIN/GLOBULIN RATIO 0.6 (0.8-2.0); ANION GAP 12.2 mmol/L (8-16); CREATININE, SERUM 5.51 mg/dL (0.57-1.11); MAGNESIUM 1.3 MG/DL (1.3-2.1); POTASSIUM 3.2 mmol/L (3.5-5.1)
[2022-03-15 07:45] LABS: CALCIUM 6.5 mg/dL (8.4-10.2)
[2022-03-15] MEDS: MIDODRINE HCL 5 MG TABLET PO SCH ×3 (07:53→16:30)
[2022-03-15] MEDS: SUCRALFATE 1 GM TAB PO SCH ×4 (07:53→21:16)
[2022-03-15] MEDS: ASPIRIN 81 MG CHEW TAB PO SCH (07:53)
[2022-03-15] MEDS: DICYCLOMINE HCL 20 MG TAB PO SCH ×4 (07:53→21:16)
[2022-03-15] MEDS: AMIODARONE HCL 200 MG TAB PO SCH (07:54)
[2022-03-15] MEDS: FLUDROCORTISONE ACETATE 0.1 MG TAB PO SCH (07:54)
[2022-03-15] MEDS: PANTOPRAZOLE SOD 40 MG TABEC PO SCH ×2 (07:54→16:30)
[2022-03-15] MEDS: CITALOPRAM HYDROBROMIDE 20 MG TAB PO SCH (07:54)
[2022-03-15] MEDS: CHOLESTYRAMINE 4 GM PACKET PO SCH (07:55)
[2022-03-15] MEDS ORDERED: ALBUMIN 25% 12.5GM 0.25 GM/ML BTL IV PRN (09:15)
[2022-03-15] MEDS: ATORVASTATIN 40 MG TAB PO SCH (21:16)
[2022-03-15] MEDS: GABAPENTIN 100 MG CAP PO SCH (21:16)
[2022-03-16] VITALS (60 sets, daily range): BP systolic 67–117; BP diastolic 43–94
[2022-03-16 00:55] LABS: IRON 44 ug/dL (50-170); TRANSFERRIN < 70 mg/dL (180-382)
[2022-03-16] MEDS ORDERED: DIPHENOXYLATE/ATROPINE TAB PO STA (00:57)
[2022-03-16 05:25] LABS: BASOPHILS % 0.5 % (0.0-1.0); EOSINOPHILS # (AUTO) 0.1 (0.0-0.4); EOSINOPHILS % 1.2 % (0.0-6.0); HEMATOCRIT 25.3 % (34.2-44.1); LYMPHOCYTES # (AUTO) 1.6 (1.0-3.2); LYMPHOCYTES % 38.9 % (18.0-39.1); MEAN CORPUSCULAR HEMOGLOBIN 33.1 pg (28-32); MEAN CORPUSCULAR HGB CONC 31.6 g/dL (31-35); MEAN CORPUSCULAR VOLUME 104.5 fL (81-99); MONOCYTES # (AUTO) 0.3 (0.2-0.8); MONOCYTES % 6.9 % (4.4-11.3); NEUTROPHILS # (AUTO) 2.1 (2.1-6.9); NEUTROPHILS % 52.3 % (38.7-80.0); RED BLOOD COUNT 2.42 x10e6/uL (3.6-5.1); RED CELL DISTRIBUTION WIDTH 19.6 % (11.7-14.4)
[2022-03-16 05:32] LABS: PLATELET COUNT 34 x10e3/uL (140-360)
[2022-03-16 05:37] LABS: ALBUMIN 1.8 g/dL (3.5-5.0); ALBUMIN/GLOBULIN RATIO 0.7 (0.8-2.0); CREATININE, SERUM 5.09 mg/dL (0.57-1.11)
[2022-03-16 05:41] LABS: CALCIUM 6.5 mg/dL (8.4-10.2)
[2022-03-16] MEDS: LEVOTHYROXINE SODIUM 75 MCG TAB PO SCH (06:04)
[2022-03-16] MEDS: SUCRALFATE 1 GM TAB PO SCH ×4 (07:52→21:13)
[2022-03-16] MEDS: MIDODRINE HCL 5 MG TABLET PO SCH ×3 (08:47→13:31)
[2022-03-16] MEDS: CITALOPRAM HYDROBROMIDE 20 MG TAB PO SCH (08:48)
[2022-03-16] MEDS: AMIODARONE HCL 200 MG TAB PO SCH (08:48)
[2022-03-16] MEDS: ASPIRIN 81 MG CHEW TAB PO SCH (08:48)
[2022-03-16] MEDS: DICYCLOMINE HCL 20 MG TAB PO SCH ×4 (08:48→21:13)
[2022-03-16] MEDS: PANTOPRAZOLE SOD 40 MG TABEC PO SCH ×2 (08:49→17:00)
[2022-03-16] MEDS: DIPHENOXYLATE/ATROPINE TAB PO SCH ×4 (08:49→21:13)
[2022-03-16] MEDS: FLUDROCORTISONE ACETATE 0.1 MG TAB PO SCH ×3 (08:49→17:00)
[2022-03-16] MEDS: CHOLESTYRAMINE 4 GM PACKET PO SCH (08:51)
[2022-03-16] MEDS ORDERED: POTASSIUM CHLORIDE 20MEQ/100ML 200 ML IV ONE (13:00)
[2022-03-16] MEDS ORDERED: POTASSIUM CHLORIDE 20 MEQ TAB CR PO ONE (14:15)
[2022-03-16 16:01] LABS: WBC,FECAL (FECAL LACTOFERRIN) POSITIVE (NEGATIVE)
[2022-03-16] MEDS ORDERED: MIDODRINE HCL 5 MG TABLET PO ONE (18:00)
[2022-03-16 19:19] LABS: INR 2.18; PROTHROMBIN TIME 25.9 seconds (11.9-14.5)
[2022-03-16] MEDS: GABAPENTIN 100 MG CAP PO SCH (21:13)
[2022-03-16] MEDS: ATORVASTATIN 40 MG TAB PO SCH (21:13)
[2022-03-17] VITALS (32 sets, daily range): BP systolic 62–94; BP diastolic 42–66
[2022-03-17] MEDS ORDERED: CYANOCOBALAMIN INJ 1,000 MCG/ML VIAL IM ONE (02:30)
[2022-03-17 04:59] LABS: BASOPHILS % 0.6 % (0.0-1.0); EOSINOPHILS # (AUTO) 0.1 (0.0-0.4); EOSINOPHILS % 2.2 % (0.0-6.0); HEMATOCRIT 25.7 % (34.2-44.1); HEMOGLOBIN 8.3 g/dL (12.0-16.0); LYMPHOCYTES # (AUTO) 1.9 (1.0-3.2); LYMPHOCYTES % 37.9 % (18.0-39.1); MEAN CORPUSCULAR HEMOGLOBIN 33.5 pg (28-32); MEAN CORPUSCULAR HGB CONC 32.3 g/dL (31-35); MEAN CORPUSCULAR VOLUME 103.6 fL (81-99); MONOCYTES # (AUTO) 0.3 (0.2-0.8); MONOCYTES % 6.1 % (4.4-11.3); NEUTROPHILS # (AUTO) 2.6 (2.1-6.9); RED BLOOD COUNT 2.48 x10e6/uL (3.6-5.1); RED CELL DISTRIBUTION WIDTH 19.2 % (11.7-14.4)
[2022-03-17 05:03] LABS: PLATELET COUNT 39 x10e3/uL (140-360)
[2022-03-17 05:20] LABS: ALBUMIN 1.6 g/dL (3.5-5.0); ALBUMIN/GLOBULIN RATIO 0.6 (0.8-2.0); ANION GAP 10.3 mmol/L (8-16); CREATININE, SERUM 5.81 mg/dL (0.57-1.11); POTASSIUM 3.3 mmol/L (3.5-5.1)
[2022-03-17 05:22] LABS: CALCIUM 6.6 mg/dL (8.4-10.2)
[2022-03-17] MEDS ORDERED: CALCIUM GLUC 1 G/50 ML NACL 50 ML IV ONE (06:30)
[2022-03-17] MEDS: FLUDROCORTISONE ACETATE 0.1 MG TAB PO SCH ×2 (09:16→16:27)
[2022-03-17] MEDS: LEVOTHYROXINE SODIUM 75 MCG TAB PO SCH (09:16)
[2022-03-17] MEDS: CYANOCOBALAMIN INJ 1,000 MCG/ML VIAL IM SCH (09:16)
[2022-03-17] MEDS: ASPIRIN 81 MG CHEW TAB PO SCH (09:16)
[2022-03-17] MEDS: AMIODARONE HCL 200 MG TAB PO SCH (09:16)
[2022-03-17] MEDS: CITALOPRAM HYDROBROMIDE 20 MG TAB PO SCH (09:16)
[2022-03-17] MEDS: DICYCLOMINE HCL 20 MG TAB PO SCH ×4 (09:16→20:29)
[2022-03-17] MEDS: IRON SUCROSE 100 MG in SODIUM CHLORIDE 0.9% 100 ML 100 ML IV SCH (09:16)
[2022-03-17] MEDS: MIDODRINE HCL 5 MG TABLET PO SCH ×3 (09:16→16:27)
[2022-03-17] MEDS: PANTOPRAZOLE SOD 40 MG TABEC PO SCH ×2 (09:16→16:27)
[2022-03-17] MEDS: SUCRALFATE 1 GM TAB PO SCH ×4 (09:16→20:30)
[2022-03-17] MEDS: CHOLESTYRAMINE 4 GM PACKET PO SCH (09:16)
[2022-03-17] MEDS: DIPHENOXYLATE/ATROPINE TAB PO SCH ×4 (09:16→20:29)
[2022-03-17] MEDS ORDERED: ALBUMIN 25% 12.5GM 0.25 GM/ML BTL IV PRN (10:30)
[2022-03-17] MEDS ORDERED: SODIUM CHLORIDE 0.9% 250ML 500 ML IV PRN (10:30)
[2022-03-17 10:32] LABS: C DIFFICILE TOXIN A&B AMP PROB NEGATIVE (NEGATIVE)
[2022-03-17] MEDS ORDERED: LOPERAMIDE HCL 2 MG CAP PO PRN (11:45)
[2022-03-17] MEDS ORDERED: ALBUMIN 5% 0.05 GM/ML BTL IV ONE (11:45)
[2022-03-17] MEDS ORDERED: ALBUMIN 5% 250ML 500 ML IV ONE (14:00)
[2022-03-17] MEDS: METRONIDAZOLE 500MG/NS 100ML 100 ML IV SCH ×2 (14:17→21:40)
[2022-03-17] MEDS: GABAPENTIN 100 MG CAP PO SCH (20:29)
[2022-03-17] MEDS: ATORVASTATIN 40 MG TAB PO SCH (20:29)
[2022-03-18] VITALS (30 sets, daily range): BP systolic 68–129; BP diastolic 32–97
[2022-03-18 05:49] LABS: ALBUMIN 2.4 g/dL (3.5-5.0); ANION GAP 11.1 mmol/L (8-16); CREATININE, SERUM 4.48 mg/dL (0.57-1.11); MAGNESIUM 1.5 MG/DL (1.3-2.1); POTASSIUM 4.1 mmol/L (3.5-5.1)
[2022-03-18 05:57] LABS: BASOPHILS % 0.7 % (0.0-1.0); EOSINOPHILS # (AUTO) 0.1 (0.0-0.4); EOSINOPHILS % 1.7 % (0.0-6.0); LYMPHOCYTES # (AUTO) 1.4 (1.0-3.2); LYMPHOCYTES % 45.7 % (18.0-39.1); MEAN CORPUSCULAR HEMOGLOBIN 33.2 pg (28-32); MEAN CORPUSCULAR HGB CONC 31.2 g/dL (31-35); MEAN CORPUSCULAR VOLUME 106.4 fL (81-99); MONOCYTES # (AUTO) 0.2 (0.2-0.8); NEUTROPHILS # (AUTO) 1.3 (2.1-6.9); NEUTROPHILS % 43.6 % (38.7-80.0); RED BLOOD COUNT 2.02 x10e6/uL (3.6-5.1); RED CELL DISTRIBUTION WIDTH 19.3 % (11.7-14.4)
[2022-03-18 06:04] LABS: HEMATOCRIT 21.5 % (34.2-44.1); HEMOGLOBIN 6.7 g/dL (12.0-16.0); PLATELET COUNT 22 x10e3/uL (140-360)
[2022-03-18] MEDS: METRONIDAZOLE 500MG/NS 100ML 100 ML IV SCH ×3 (06:23→21:20)
[2022-03-18] MEDS: LEVOTHYROXINE SODIUM 75 MCG TAB PO SCH (06:23)
[2022-03-18] MEDS: SUCRALFATE 1 GM TAB PO SCH ×4 (07:33→17:07)
[2022-03-18] MEDS: MIDODRINE HCL 5 MG TABLET PO SCH ×3 (07:33→16:56)
[2022-03-18] MEDS ORDERED: SODIUM CHLORIDE 0.9% 250ML 250 ML IV ONE (08:30)
[2022-03-18 09:12] LABS: INR 2.43; PROTHROMBIN TIME 28.2 seconds (11.9-14.5)
[2022-03-18] MEDS: AMIODARONE HCL 200 MG TAB PO SCH (09:13)
[2022-03-18] MEDS: DICYCLOMINE HCL 20 MG TAB PO SCH ×4 (09:13→21:20)
[2022-03-18] MEDS: FLUDROCORTISONE ACETATE 0.1 MG TAB PO SCH ×2 (09:13→16:56)
[2022-03-18] MEDS: ASPIRIN 81 MG CHEW TAB PO SCH (09:13)
[2022-03-18] MEDS: DIPHENOXYLATE/ATROPINE TAB PO SCH ×4 (09:13→21:20)
[2022-03-18] MEDS: CITALOPRAM HYDROBROMIDE 20 MG TAB PO SCH (09:13)
[2022-03-18] MEDS: CHOLESTYRAMINE 4 GM PACKET PO SCH (09:13)
[2022-03-18] MEDS: IRON SUCROSE 100 MG in SODIUM CHLORIDE 0.9% 100 ML 100 ML IV SCH (09:13)
[2022-03-18] MEDS: CYANOCOBALAMIN INJ 1,000 MCG/ML VIAL IM SCH (09:13)
[2022-03-18] MEDS: PANTOPRAZOLE SOD 40 MG TABEC PO SCH ×2 (09:14→16:56)
[2022-03-18 09:25] LABS: EOSINOPHILS % (MANUAL) 2 % (0-7); LYMPHOCYTES % (MANUAL) 50 % (19-48); MONOCYTES % (MANUAL) 2 % (3.4-9.0); NEUTROPHILS % (MANUAL) 46 % (40-74)
[2022-03-18 09:26] LABS: ANISOCYTOSIS MODERATE; PLATELET ESTIMATE MARKEDLY DECREASED; PLATELET MORPHOLOGY COMMENT NORMAL; RBC MORPHOLOGY COMMENT ABNORMAL; SPHEROCYTES AM
[2022-03-18] MEDS ORDERED: MAGNESIUM SULFATE 2GM/50ML 50 ML IV ONE (09:30)
[2022-03-18] MEDS: HYDROCORTISONE SOD SUCCINATE 100 MG VIAL IV SCH ×2 (14:04→21:20)
[2022-03-18] MEDS ORDERED: LIDOCAINE HCL 1% LOCAL INJ 20 ML VIAL ONE (14:41)
[2022-03-18] MEDS: ATORVASTATIN 40 MG TAB PO SCH (21:20)
[2022-03-18] MEDS: GABAPENTIN 100 MG CAP PO SCH (21:20)
[2022-03-19] VITALS (49 sets, daily range): BP systolic 64–116; BP diastolic 36–96
[2022-03-19] MEDS: LEVOTHYROXINE SODIUM 75 MCG TAB PO SCH (05:24)
[2022-03-19] MEDS: DIPHENOXYLATE/ATROPINE TAB PO SCH ×3 (05:24→21:40)
[2022-03-19] MEDS: HYDROCORTISONE SOD SUCCINATE 100 MG VIAL IV SCH ×3 (05:24→21:40)
[2022-03-19] MEDS: METRONIDAZOLE 500MG/NS 100ML 100 ML IV SCH ×3 (05:24→21:40)
[2022-03-19 05:48] LABS: BASOPHILS % 0.5 % (0.0-1.0); HEMATOCRIT 25.5 % (34.2-44.1); HEMOGLOBIN 8.1 g/dL (12.0-16.0); LYMPHOCYTES # (AUTO) 0.6 (1.0-3.2); MEAN CORPUSCULAR HGB CONC 31.8 g/dL (31-35); MEAN CORPUSCULAR VOLUME 100.8 fL (81-99); MONOCYTES # (AUTO) 0.1 (0.2-0.8); MONOCYTES % 4.3 % (4.4-11.3); NEUTROPHILS # (AUTO) 1.4 (2.1-6.9); NEUTROPHILS % 65.7 % (38.7-80.0); RED BLOOD COUNT 2.53 x10e6/uL (3.6-5.1); RED CELL DISTRIBUTION WIDTH 21.6 % (11.7-14.4)
[2022-03-19 06:01] LABS: PLATELET COUNT 34 x10e3/uL (140-360)
[2022-03-19 06:03] LABS: INR 2.09; PROTHROMBIN TIME 25.1 seconds (11.9-14.5)
[2022-03-19 06:04] LABS: PARTIAL THROMBOPLASTIN TIME 53.6 seconds (23.8-35.5)
[2022-03-19] MEDS: SUCRALFATE 1 GM TAB PO SCH ×4 (07:34→21:40)
[2022-03-19 08:15] LABS: LYMPHOCYTES % (MANUAL) 15 % (19-48); MONOCYTES % (MANUAL) 1 % (3.4-9.0); NEUTROPHILS % (MANUAL) 84 % (40-74); PLATELET ESTIMATE MARKEDLY DECREASED; PLATELET MORPHOLOGY COMMENT NORMAL; RBC MORPHOLOGY COMMENT NORMAL
[2022-03-19] MEDS: CYANOCOBALAMIN INJ 1,000 MCG/ML VIAL IM SCH (08:27)
[2022-03-19] MEDS: MIDODRINE HCL 5 MG TABLET PO SCH ×3 (08:27→16:18)
[2022-03-19] MEDS: FLUDROCORTISONE ACETATE 0.1 MG TAB PO SCH ×2 (08:28→10:58)
[2022-03-19] MEDS: ASPIRIN 81 MG CHEW TAB PO SCH (08:28)
[2022-03-19] MEDS: AMIODARONE HCL 200 MG TAB PO SCH (08:33)
[2022-03-19] MEDS: CITALOPRAM HYDROBROMIDE 20 MG TAB PO SCH (08:33)
[2022-03-19] MEDS: DICYCLOMINE HCL 20 MG TAB PO SCH ×4 (08:33→21:40)
[2022-03-19] MEDS: IRON SUCROSE 100 MG in SODIUM CHLORIDE 0.9% 100 ML 100 ML IV SCH (08:33)
[2022-03-19] MEDS: PANTOPRAZOLE SOD 40 MG TABEC PO SCH ×2 (08:33→16:18)
[2022-03-19 09:30] LABS: HEMATOCRIT 27.5 % (34.2-44.1); HEMOGLOBIN 8.7 g/dL (12.0-16.0); LYMPHOCYTES # (AUTO) 0.7 (1.0-3.2); LYMPHOCYTES % 25.6 % (18.0-39.1); MEAN CORPUSCULAR HGB CONC 31.6 g/dL (31-35); MEAN CORPUSCULAR VOLUME 101.1 fL (81-99); MONOCYTES # (AUTO) 0.1 (0.2-0.8); MONOCYTES % 3.9 % (4.4-11.3); NEUTROPHILS # (AUTO) 1.8 (2.1-6.9); NEUTROPHILS % 70.1 % (38.7-80.0); RED BLOOD COUNT 2.72 x10e6/uL (3.6-5.1)
[2022-03-19 09:35] LABS: PLATELET COUNT 39 x10e3/uL (140-360)
[2022-03-19] MEDS: CHOLESTYRAMINE 4 GM PACKET PO SCH (09:40)
[2022-03-19 09:49] LABS: ALBUMIN 2.8 g/dL (3.5-5.0); ALBUMIN/GLOBULIN RATIO 1.2 (0.8-2.0); ANION GAP 12.4 mmol/L (8-16); CALCIUM 7.3 mg/dL (8.4-10.2); CREATININE, SERUM 3.94 mg/dL (0.57-1.11); POTASSIUM 3.4 mmol/L (3.5-5.1)
[2022-03-19] MEDS: GABAPENTIN 100 MG CAP PO SCH (21:40)
[2022-03-19] MEDS: ATORVASTATIN 40 MG TAB PO SCH (21:40)
[2022-03-20] VITALS (46 sets, daily range): BP systolic 70–110; BP diastolic 49–83
[2022-03-20] MEDS: LEVOTHYROXINE SODIUM 75 MCG TAB PO SCH (05:26)
[2022-03-20] MEDS: DIPHENOXYLATE/ATROPINE TAB PO SCH ×3 (05:26→23:25)
[2022-03-20] MEDS: HYDROCORTISONE SOD SUCCINATE 100 MG VIAL IV SCH ×3 (05:26→23:25)
[2022-03-20] MEDS: METRONIDAZOLE 500MG/NS 100ML 100 ML IV SCH ×3 (05:26→23:25)
[2022-03-20] MEDS: FLUDROCORTISONE ACETATE 0.1 MG TAB PO SCH (05:26)
[2022-03-20] MEDS ORDERED: FLUDROCORTISONE ACETATE 0.1 MG TAB PO SCH (06:00)
[2022-03-20 08:35] LABS: HEMATOCRIT 32.8 % (34.2-44.1); HEMOGLOBIN 10.1 g/dL (12.0-16.0); LYMPHOCYTES # (AUTO) 0.3 (1.0-3.2); LYMPHOCYTES % 6.7 % (18.0-39.1); MEAN CORPUSCULAR HEMOGLOBIN 32.1 pg (28-32); MEAN CORPUSCULAR HGB CONC 30.8 g/dL (31-35); MEAN CORPUSCULAR VOLUME 104.1 fL (81-99); MONOCYTES # (AUTO) 0.1 (0.2-0.8); MONOCYTES % 1.3 % (4.4-11.3); NEUTROPHILS # (AUTO) 4.4 (2.1-6.9); NEUTROPHILS % 91.8 % (38.7-80.0); PLATELET COUNT 60 x10e3/uL (140-360); RED BLOOD COUNT 3.15 x10e6/uL (3.6-5.1); RED CELL DISTRIBUTION WIDTH 22.5 % (11.7-14.4)
[2022-03-20 08:47] LABS: INR 1.65; PROTHROMBIN TIME 20.9 seconds (11.9-14.5)
[2022-03-20 08:55] LABS: ALBUMIN/GLOBULIN RATIO 1.1 (0.8-2.0); ANION GAP 13.1 mmol/L (8-16); CALCIUM 7.7 mg/dL (8.4-10.2); CREATININE, SERUM 3.38 mg/dL (0.57-1.11); POTASSIUM 3.1 mmol/L (3.5-5.1)
[2022-03-20] MEDS: CITALOPRAM HYDROBROMIDE 20 MG TAB PO SCH (09:09)
[2022-03-20] MEDS: CHOLESTYRAMINE 4 GM PACKET PO SCH (09:09)
[2022-03-20] MEDS: SUCRALFATE 1 GM TAB PO SCH ×4 (09:09→23:25)
[2022-03-20] MEDS: CYANOCOBALAMIN INJ 1,000 MCG/ML VIAL IM SCH (09:09)
[2022-03-20] MEDS: PANTOPRAZOLE SOD 40 MG TABEC PO SCH ×2 (09:09→17:00)
[2022-03-20] MEDS: ASPIRIN 81 MG CHEW TAB PO SCH (09:09)
[2022-03-20] MEDS: MIDODRINE HCL 5 MG TABLET PO SCH ×3 (09:09→15:05)
[2022-03-20] MEDS: DICYCLOMINE HCL 20 MG TAB PO SCH ×4 (09:09→23:25)
[2022-03-20] MEDS: IRON SUCROSE 100 MG in SODIUM CHLORIDE 0.9% 100 ML 100 ML IV SCH (10:31)
[2022-03-20] MEDS ORDERED: DIGOXIN INJ 0.25 MG/ML 2 ML AMP IV NR (13:00)
[2022-03-20] MEDS: LORAZEPAM INJ 2 MG/ML VIAL IV PRN ×2 (15:35→23:20)
[2022-03-20] MEDS ORDERED: DIGOXIN INJ 0.25 MG/ML 2 ML AMP IV ONE (16:25)
[2022-03-20] MEDS ORDERED: AMIODARONE HCL 200 MG TAB PO SCH (17:00)
[2022-03-20 17:47] LABS: ABG HCO3 26 mmol/L (22-26); ABG PCO2 55 mmHg (35-45); ABG PH 7.29 (7.35-7.45); ABG PO2 54 mmHg (80-105); ABG TCO2 28
[2022-03-20] MEDS ORDERED: VASOPRESSIN 60 UNIT in DEXTROSE 5% 50ML 57 ML IV STA (17:53)
[2022-03-20] MEDS: AMIODARONE 900MG 900 MG in Premix Bag 1 BAG IV SCH (18:37)
[2022-03-20] MEDS: ATORVASTATIN 40 MG TAB PO SCH (23:25)
[2022-03-20] MEDS: GABAPENTIN 100 MG CAP PO SCH (23:25)
[2022-03-21] VITALS (51 sets, daily range): BP systolic 79–100; BP diastolic 49–80
[2022-03-21 05:38] LABS: HEMATOCRIT 31.3 % (34.2-44.1); HEMOGLOBIN 9.8 g/dL (12.0-16.0); LYMPHOCYTES # (AUTO) 0.3 (1.0-3.2); LYMPHOCYTES % 5.4 % (18.0-39.1); MEAN CORPUSCULAR HEMOGLOBIN 32.6 pg (28-32); MEAN CORPUSCULAR HGB CONC 31.3 g/dL (31-35); MONOCYTES # (AUTO) 0.1 (0.2-0.8); MONOCYTES % 2.1 % (4.4-11.3); NEUTROPHILS # (AUTO) 4.9 (2.1-6.9); NEUTROPHILS % 92.1 % (38.7-80.0); PLATELET COUNT 50 x10e3/uL (140-360); RED BLOOD COUNT 3.01 x10e6/uL (3.6-5.1); RED CELL DISTRIBUTION WIDTH 21.3 % (11.7-14.4)
[2022-03-21] MEDS: METRONIDAZOLE 500MG/NS 100ML 100 ML IV SCH ×3 (05:47→21:23)
[2022-03-21] MEDS: FLUDROCORTISONE ACETATE 0.1 MG TAB PO SCH (05:47)
[2022-03-21] MEDS: HYDROCORTISONE SOD SUCCINATE 100 MG VIAL IV SCH ×3 (05:47→21:23)
[2022-03-21] MEDS: DIPHENOXYLATE/ATROPINE TAB PO SCH ×3 (05:47→21:23)
[2022-03-21] MEDS: LEVOTHYROXINE SODIUM 75 MCG TAB PO SCH (05:47)
[2022-03-21 06:22] LABS: ALBUMIN 2.8 g/dL (3.5-5.0); ALBUMIN/GLOBULIN RATIO 1.3 (0.8-2.0); ANION GAP 14.8 mmol/L (8-16); CALCIUM 7.8 mg/dL (8.4-10.2); CREATININE, SERUM 2.95 mg/dL (0.57-1.11); MAGNESIUM 1.6 MG/DL (1.3-2.1); POTASSIUM 3.8 mmol/L (3.5-5.1)
[2022-03-21] MEDS: SUCRALFATE 1 GM TAB PO SCH ×4 (07:30→20:00)
[2022-03-21] MEDS: MIDODRINE HCL 5 MG TABLET PO SCH ×3 (08:00→16:00)
[2022-03-21] MEDS: LORAZEPAM INJ 2 MG/ML VIAL IV PRN ×2 (08:05→17:46)
[2022-03-21] MEDS: DICYCLOMINE HCL 20 MG TAB PO SCH ×4 (08:05→20:00)
[2022-03-21] MEDS: ASPIRIN 81 MG CHEW TAB PO SCH (08:05)
[2022-03-21] MEDS: CHOLESTYRAMINE 4 GM PACKET PO SCH (08:06)
[2022-03-21] MEDS: CITALOPRAM HYDROBROMIDE 20 MG TAB PO SCH (08:06)
[2022-03-21] MEDS: PANTOPRAZOLE SOD 40 MG TABEC PO SCH ×2 (08:06→16:25)
[2022-03-21] MEDS: IRON SUCROSE 100 MG in SODIUM CHLORIDE 0.9% 100 ML 100 ML IV SCH (09:22)
[2022-03-21] MEDS: CYANOCOBALAMIN INJ 1,000 MCG/ML VIAL IM SCH (09:22)
[2022-03-21] MEDS ORDERED: Vancomycin IV 1 GM in SODIUM CHLORIDE 0.9% 250ML 250 ML IV ONE (09:45)
[2022-03-21 10:27] LABS: ABG PCO2 45 mmHg (35-45); ABG PH 7.37 (7.35-7.45)
[2022-03-21 10:28] LABS: ABG HCO3 26 mmol/L (22-26); ABG PO2 71 mmHg (80-105); ABG TCO2 28
[2022-03-21] MEDS: ATORVASTATIN 40 MG TAB PO SCH (20:00)
[2022-03-21] MEDS: GABAPENTIN 100 MG CAP PO SCH (20:00)
[2022-03-21] MEDS: AMIODARONE 900MG 900 MG in Premix Bag 1 BAG IV SCH (21:55)
[2022-03-22] VITALS (63 sets, daily range): BP systolic 72–95; BP diastolic 48–70
[2022-03-22] MEDS: LORAZEPAM INJ 2 MG/ML VIAL IV PRN (01:08)
[2022-03-22 04:34] LABS: BASOPHILS % 0.2 % (0.0-1.0); HEMATOCRIT 28.1 % (34.2-44.1); HEMOGLOBIN 8.8 g/dL (12.0-16.0); LYMPHOCYTES # (AUTO) 0.4 (1.0-3.2); LYMPHOCYTES % 7.3 % (18.0-39.1); MEAN CORPUSCULAR HEMOGLOBIN 32.4 pg (28-32); MEAN CORPUSCULAR HGB CONC 31.3 g/dL (31-35); MEAN CORPUSCULAR VOLUME 103.3 fL (81-99); MONOCYTES # (AUTO) 0.2 (0.2-0.8); MONOCYTES % 2.8 % (4.4-11.3); NEUTROPHILS # (AUTO) 5.1 (2.1-6.9); NEUTROPHILS % 89.4 % (38.7-80.0); RED BLOOD COUNT 2.72 x10e6/uL (3.6-5.1); RED CELL DISTRIBUTION WIDTH 20.7 % (11.7-14.4)
[2022-03-22 04:43] LABS: PLATELET COUNT 43 x10e3/uL (140-360)
[2022-03-22 04:47] LABS: ALBUMIN 2.9 g/dL (3.5-5.0); ALBUMIN/GLOBULIN RATIO 1.5 (0.8-2.0); ANION GAP 11.8 mmol/L (8-16); CALCIUM 8.2 mg/dL (8.4-10.2); CREATININE, SERUM 3.36 mg/dL (0.57-1.11); POTASSIUM 3.8 mmol/L (3.5-5.1)
[2022-03-22] MEDS: METRONIDAZOLE 500MG/NS 100ML 100 ML IV SCH (05:24)
[2022-03-22] MEDS: FLUDROCORTISONE ACETATE 0.1 MG TAB PO SCH (05:34)
[2022-03-22] MEDS: HYDROCORTISONE SOD SUCCINATE 100 MG VIAL IV SCH ×3 (05:34→21:57)
[2022-03-22] MEDS: DIPHENOXYLATE/ATROPINE TAB PO SCH ×3 (05:34→20:04)
[2022-03-22] MEDS: LEVOTHYROXINE SODIUM 75 MCG TAB PO SCH (05:34)
[2022-03-22] MEDS: SUCRALFATE 1 GM TAB PO SCH ×4 (07:30→20:04)
[2022-03-22] MEDS: MIDODRINE HCL 5 MG TABLET PO SCH ×3 (08:00→15:53)
[2022-03-22 08:05] LABS: ABG PCO2 47 mmHg (35-45); ABG PH 7.36 (7.35-7.45); ABG PO2 49 mmHg (80-105)
[2022-03-22 08:06] LABS: ABG HCO3 27 mmol/L (22-26); ABG TCO2 28
[2022-03-22] MEDS ORDERED: SODIUM CHLORIDE 0.9% 1000ML 1,000 ML ONE ×2 (08:39→14:08)
[2022-03-22] MEDS: CITALOPRAM HYDROBROMIDE 20 MG TAB PO SCH (09:00)
[2022-03-22] MEDS: DICYCLOMINE HCL 20 MG TAB PO SCH ×4 (09:00→20:03)
[2022-03-22] MEDS: ASPIRIN 81 MG CHEW TAB PO SCH (09:00)
[2022-03-22] MEDS: CHOLESTYRAMINE 4 GM PACKET PO SCH (09:00)
[2022-03-22] MEDS: IRON SUCROSE 100 MG in SODIUM CHLORIDE 0.9% 100 ML 100 ML IV SCH (09:50)
[2022-03-22] MEDS: CYANOCOBALAMIN INJ 1,000 MCG/ML VIAL IM SCH (10:30)
[2022-03-22] MEDS ORDERED: CORTISONE ACETATE 25 MG PO SCH (17:00)
[2022-03-22] MEDS: AMIODARONE 900MG 900 MG in Premix Bag 1 BAG IV SCH (18:47)
[2022-03-22] MEDS: ATORVASTATIN 40 MG TAB PO SCH (20:04)
[2022-03-23] VITALS (73 sets, daily range): BP systolic 71–103; BP diastolic 45–81
[2022-03-23 05:06] LABS: BASOPHILS % 0.2 % (0.0-1.0); HEMATOCRIT 26.5 % (34.2-44.1); HEMOGLOBIN 8.4 g/dL (12.0-16.0); LYMPHOCYTES # (AUTO) 0.4 (1.0-3.2); LYMPHOCYTES % 6.7 % (18.0-39.1); MEAN CORPUSCULAR HEMOGLOBIN 33.1 pg (28-32); MEAN CORPUSCULAR HGB CONC 31.7 g/dL (31-35); MEAN CORPUSCULAR VOLUME 104.3 fL (81-99); MONOCYTES # (AUTO) 0.1 (0.2-0.8); MONOCYTES % 2.2 % (4.4-11.3); NEUTROPHILS # (AUTO) 4.9 (2.1-6.9); NEUTROPHILS % 90.3 % (38.7-80.0); RED BLOOD COUNT 2.54 x10e6/uL (3.6-5.1); RED CELL DISTRIBUTION WIDTH 20.3 % (11.7-14.4)
[2022-03-23] MEDS: LEVOTHYROXINE SODIUM 75 MCG TAB PO SCH (05:23)
[2022-03-23] MEDS: DIPHENOXYLATE/ATROPINE TAB PO SCH (05:23)
[2022-03-23] MEDS: FLUDROCORTISONE ACETATE 0.1 MG TAB PO SCH (05:23)
[2022-03-23 05:29] LABS: PLATELET COUNT 37 x10e3/uL (140-360)
[2022-03-23 05:52] LABS: ALBUMIN 3.1 g/dL (3.5-5.0); ALBUMIN/GLOBULIN RATIO 1.5 (0.8-2.0); ANION GAP 15.6 mmol/L (8-16); CALCIUM 7.9 mg/dL (8.4-10.2); CREATININE, SERUM 3.03 mg/dL (0.57-1.11); POTASSIUM 3.6 mmol/L (3.5-5.1)
[2022-03-23] MEDS: HYDROCORTISONE SOD SUCCINATE 100 MG VIAL IV SCH (06:20)
[2022-03-23] MEDS: SUCRALFATE 1 GM TAB PO SCH ×4 (07:30→21:14)
[2022-03-23] MEDS: MIDODRINE HCL 5 MG TABLET PO SCH ×3 (07:45→16:47)
[2022-03-23] MEDS: DICYCLOMINE HCL 20 MG TAB PO SCH ×4 (09:00→21:14)
[2022-03-23] MEDS: IRON SUCROSE 100 MG in SODIUM CHLORIDE 0.9% 100 ML 100 ML IV SCH ×2 (09:46→09:54)
[2022-03-23 10:34] LABS: LYMPHOCYTES % (MANUAL) 3 % (19-48); MONOCYTES % (MANUAL) 2 % (3.4-9.0); NEUTROPHILS % (MANUAL) 95 % (40-74); PLATELET ESTIMATE MARKEDLY DECREASED; PLATELET MORPHOLOGY COMMENT NORMAL
[2022-03-23 10:35] LABS: ANISOCYTOSIS MODERATE; HYPOCHROMASIA SLIGHT; OVALOCYTES FEW; RBC MORPHOLOGY COMMENT ABNORMAL
[2022-03-23] MEDS: CITALOPRAM HYDROBROMIDE 20 MG TAB PO SCH (12:22)
[2022-03-23] MEDS: CYANOCOBALAMIN INJ 1,000 MCG/ML VIAL IM SCH (12:22)
[2022-03-23] MEDS: CHOLESTYRAMINE 4 GM PACKET PO SCH (12:22)
[2022-03-23] MEDS: ASPIRIN 81 MG CHEW TAB PO SCH (12:22)
[2022-03-23] MEDS ORDERED: VASOPRESSIN 60 UNIT in DEXTROSE 5% 50ML 57 ML IV PRN (13:00)
[2022-03-23] MEDS: AMIODARONE HCL 200 MG TAB PO SCH (16:47)
[2022-03-23] MEDS ORDERED: AMIODARONE HCL 200 MG TAB PO SCH (17:00)
[2022-03-23] MEDS ORDERED: CORTISONE ACETATE 25 MG PO SCH (17:00)
[2022-03-23] MEDS: ATORVASTATIN 40 MG TAB PO SCH (21:14)
[2022-03-24] VITALS (35 sets, daily range): BP systolic 94–110; BP diastolic 57–80
[2022-03-24 04:59] LABS: HEMATOCRIT 28.6 % (34.2-44.1); LYMPHOCYTES # (AUTO) 0.5 (1.0-3.2); LYMPHOCYTES % 6.6 % (18.0-39.1); MEAN CORPUSCULAR HEMOGLOBIN 32.6 pg (28-32); MEAN CORPUSCULAR HGB CONC 31.5 g/dL (31-35); MEAN CORPUSCULAR VOLUME 103.6 fL (81-99); MONOCYTES # (AUTO) 0.2 (0.2-0.8); NEUTROPHILS # (AUTO) 6.8 (2.1-6.9); NEUTROPHILS % 90.9 % (38.7-80.0); RED BLOOD COUNT 2.76 x10e6/uL (3.6-5.1); RED CELL DISTRIBUTION WIDTH 20.3 % (11.7-14.4)
[2022-03-24 05:25] LABS: ALBUMIN 3.4 g/dL (3.5-5.0); ALBUMIN/GLOBULIN RATIO 1.4 (0.8-2.0); ANION GAP 16.6 mmol/L (8-16); CALCIUM 8.1 mg/dL (8.4-10.2); CREATININE, SERUM 3.72 mg/dL (0.57-1.11); POTASSIUM 3.6 mmol/L (3.5-5.1)
[2022-03-24 05:37] LABS: PLATELET COUNT 45 x10e3/uL (140-360)
[2022-03-24] MEDS: FLUDROCORTISONE ACETATE 0.1 MG TAB PO SCH (06:07)
[2022-03-24] MEDS: LEVOTHYROXINE SODIUM 75 MCG TAB PO SCH (06:07)
[2022-03-24] MEDS: SUCRALFATE 1 GM TAB PO SCH ×4 (08:22→21:23)
[2022-03-24] MEDS: CHOLESTYRAMINE 4 GM PACKET PO SCH (08:34)
[2022-03-24] MEDS: AMIODARONE HCL 200 MG TAB PO SCH ×2 (08:34→16:21)
[2022-03-24] MEDS: DICYCLOMINE HCL 20 MG TAB PO SCH ×4 (08:34→20:30)
[2022-03-24] MEDS: MIDODRINE HCL 5 MG TABLET PO SCH ×3 (08:34→16:21)
[2022-03-24] MEDS: ASPIRIN 81 MG CHEW TAB PO SCH (08:34)
[2022-03-24] MEDS: CITALOPRAM HYDROBROMIDE 20 MG TAB PO SCH (08:34)
[2022-03-24] MEDS: HYDROCORTISONE 10 MG TAB PO SCH (08:34)
[2022-03-24] MEDS: CYANOCOBALAMIN INJ 1,000 MCG/ML VIAL IM SCH (08:34)
[2022-03-24] MEDS: IRON SUCROSE 100 MG in SODIUM CHLORIDE 0.9% 100 ML 100 ML IV SCH (09:58)
[2022-03-24] MEDS: ATORVASTATIN 40 MG TAB PO SCH (21:23)
[2022-03-25] VITALS (16 sets, daily range): BP systolic 90–111; BP diastolic 51–72
[2022-03-25 05:50] LABS: EOSINOPHILS % 0.2 % (0.0-6.0); HEMATOCRIT 27.9 % (34.2-44.1); HEMOGLOBIN 8.9 g/dL (12.0-16.0); LYMPHOCYTES # (AUTO) 0.7 (1.0-3.2); LYMPHOCYTES % 10.3 % (18.0-39.1); MEAN CORPUSCULAR HGB CONC 31.9 g/dL (31-35); MEAN CORPUSCULAR VOLUME 103.3 fL (81-99); MONOCYTES # (AUTO) 0.2 (0.2-0.8); MONOCYTES % 2.7 % (4.4-11.3); NEUTROPHILS # (AUTO) 5.5 (2.1-6.9); NEUTROPHILS % 86.5 % (38.7-80.0); RED CELL DISTRIBUTION WIDTH 20.6 % (11.7-14.4)
[2022-03-25 06:00] LABS: PLATELET COUNT 42 x10e3/uL (140-360)
[2022-03-25 06:14] LABS: ALBUMIN 3.2 g/dL (3.5-5.0); ALBUMIN/GLOBULIN RATIO 1.3 (0.8-2.0); ANION GAP 14.3 mmol/L (8-16); CREATININE, SERUM 2.97 mg/dL (0.57-1.11); POTASSIUM 3.3 mmol/L (3.5-5.1)
[2022-03-25] MEDS: LEVOTHYROXINE SODIUM 75 MCG TAB PO SCH (06:44)
[2022-03-25] MEDS: FLUDROCORTISONE ACETATE 0.1 MG TAB PO SCH (06:44)
[2022-03-25] MEDS: SUCRALFATE 1 GM TAB PO SCH ×4 (08:30→21:24)
[2022-03-25] MEDS: DICYCLOMINE HCL 20 MG TAB PO SCH ×4 (08:30→21:24)
[2022-03-25] MEDS: CITALOPRAM HYDROBROMIDE 20 MG TAB PO SCH (08:30)
[2022-03-25] MEDS: CHOLESTYRAMINE 4 GM PACKET PO SCH (08:30)
[2022-03-25] MEDS: AMIODARONE HCL 200 MG TAB PO SCH ×2 (08:30→17:34)
[2022-03-25] MEDS: MIDODRINE HCL 5 MG TABLET PO SCH ×3 (08:30→17:34)
[2022-03-25] MEDS: ASPIRIN 81 MG CHEW TAB PO SCH (08:30)
[2022-03-25] MEDS: CYANOCOBALAMIN INJ 1,000 MCG/ML VIAL IM SCH (08:30)
[2022-03-25] MEDS: HYDROCORTISONE 10 MG TAB PO SCH (08:30)
[2022-03-25] MEDS ORDERED: FLUCONAZOLE 200 MG/100 ML 100 ML IV ONE (10:30)
[2022-03-25] MEDS: NYSTATIN 15 GM POWDER UD BTL TOP SCH (17:34)
[2022-03-25] MEDS: ATORVASTATIN 40 MG TAB PO SCH (21:24)
[2022-03-26] VITALS (56 sets, daily range): BP systolic 73–111; BP diastolic 32–76
[2022-03-26] MEDS: LEVOTHYROXINE SODIUM 75 MCG TAB PO SCH (06:11)
[2022-03-26] MEDS: FLUDROCORTISONE ACETATE 0.1 MG TAB PO SCH (06:11)
[2022-03-26 06:33] LABS: EOSINOPHILS % 0.2 % (0.0-6.0); HEMOGLOBIN 8.4 g/dL (12.0-16.0); LYMPHOCYTES # (AUTO) 0.6 (1.0-3.2); MEAN CORPUSCULAR HEMOGLOBIN 32.2 pg (28-32); MEAN CORPUSCULAR HGB CONC 31.1 g/dL (31-35); MEAN CORPUSCULAR VOLUME 103.4 fL (81-99); MONOCYTES # (AUTO) 0.1 (0.2-0.8); NEUTROPHILS # (AUTO) 3.6 (2.1-6.9); NEUTROPHILS % 83.3 % (38.7-80.0); RED BLOOD COUNT 2.61 x10e6/uL (3.6-5.1); RED CELL DISTRIBUTION WIDTH 20.2 % (11.7-14.4)
[2022-03-26 06:55] LABS: PLATELET COUNT 31 x10e3/uL (140-360)
[2022-03-26 07:09] LABS: ALBUMIN 2.8 g/dL (3.5-5.0); ALBUMIN/GLOBULIN RATIO 1.4 (0.8-2.0); ANION GAP 11.3 mmol/L (8-16); CREATININE, SERUM 3.63 mg/dL (0.57-1.11); POTASSIUM 3.3 mmol/L (3.5-5.1)
[2022-03-26] MEDS ORDERED: NYSTATIN 15 GM POWDER UD BTL TOP PRN (09:00)
[2022-03-26] MEDS: IRON SUCROSE 100 MG in SODIUM CHLORIDE 0.9% 100 ML 100 ML IV SCH (09:07)
[2022-03-26] MEDS: NYSTATIN 15 GM POWDER UD BTL TOP SCH ×2 (09:30→16:42)
[2022-03-26] MEDS: MIDODRINE HCL 5 MG TABLET PO SCH ×3 (09:30→17:03)
[2022-03-26] MEDS: CITALOPRAM HYDROBROMIDE 20 MG TAB PO SCH (09:30)
[2022-03-26] MEDS: HYDROCORTISONE 10 MG TAB PO SCH (09:30)
[2022-03-26] MEDS: CHOLESTYRAMINE 4 GM PACKET PO SCH (09:30)
[2022-03-26] MEDS: DICYCLOMINE HCL 20 MG TAB PO SCH ×4 (09:30→20:43)
[2022-03-26] MEDS: CYANOCOBALAMIN INJ 1,000 MCG/ML VIAL IM SCH (09:30)
[2022-03-26] MEDS: AMIODARONE HCL 200 MG TAB PO SCH ×2 (09:30→17:03)
[2022-03-26] MEDS: ASPIRIN 81 MG CHEW TAB PO SCH (09:30)
[2022-03-26] MEDS: SUCRALFATE 1 GM TAB PO SCH ×4 (09:31→20:43)
[2022-03-26] MEDS ORDERED: LOPERAMIDE HCL 2 MG CAP PO ONE (10:45)
[2022-03-26] MEDS: ATORVASTATIN 40 MG TAB PO SCH (20:43)
[2022-03-27] VITALS (30 sets, daily range): BP systolic 73–122; BP diastolic 47–78
[2022-03-27 04:33] LABS: EOSINOPHILS % 0.2 % (0.0-6.0); HEMATOCRIT 25.7 % (34.2-44.1); HEMOGLOBIN 8.2 g/dL (12.0-16.0); LYMPHOCYTES # (AUTO) 0.6 (1.0-3.2); LYMPHOCYTES % 11.7 % (18.0-39.1); MEAN CORPUSCULAR HEMOGLOBIN 32.9 pg (28-32); MEAN CORPUSCULAR HGB CONC 31.9 g/dL (31-35); MEAN CORPUSCULAR VOLUME 103.2 fL (81-99); MONOCYTES # (AUTO) 0.2 (0.2-0.8); MONOCYTES % 3.8 % (4.4-11.3); NEUTROPHILS # (AUTO) 3.9 (2.1-6.9); NEUTROPHILS % 83.7 % (38.7-80.0); RED BLOOD COUNT 2.49 x10e6/uL (3.6-5.1); RED CELL DISTRIBUTION WIDTH 20.6 % (11.7-14.4)
[2022-03-27 04:35] LABS: PLATELET COUNT 29 x10e3/uL (140-360)
[2022-03-27 04:48] LABS: ALBUMIN 2.8 g/dL (3.5-5.0); ALBUMIN/GLOBULIN RATIO 1.1 (0.8-2.0); ANION GAP 12.6 mmol/L (8-16); CALCIUM 7.5 mg/dL (8.4-10.2); CREATININE, SERUM 2.91 mg/dL (0.57-1.11); POTASSIUM 3.6 mmol/L (3.5-5.1)
[2022-03-27] MEDS: FLUDROCORTISONE ACETATE 0.1 MG TAB PO SCH (05:21)
[2022-03-27] MEDS: LEVOTHYROXINE SODIUM 75 MCG TAB PO SCH (05:21)
[2022-03-27] MEDS ORDERED: DEXTROSE 50% SYRINGE 50 ML IV PRN (06:00)
[2022-03-27] MEDS: INSULIN LISPRO 100 UNIT/1 ML 3ML VIAL SQ SCH ×4 (06:33→20:46)
[2022-03-27] MEDS: AMIODARONE HCL 200 MG TAB PO SCH ×2 (09:45→17:05)
[2022-03-27] MEDS: CYANOCOBALAMIN INJ 1,000 MCG/ML VIAL IM SCH (09:45)
[2022-03-27] MEDS: HYDROCORTISONE 10 MG TAB PO SCH (09:45)
[2022-03-27] MEDS: CITALOPRAM HYDROBROMIDE 20 MG TAB PO SCH (09:45)
[2022-03-27] MEDS: ASPIRIN 81 MG CHEW TAB PO SCH (09:45)
[2022-03-27] MEDS: SUCRALFATE 1 GM TAB PO SCH ×4 (09:45→20:28)
[2022-03-27] MEDS: MIDODRINE HCL 5 MG TABLET PO SCH ×3 (09:45→17:05)
[2022-03-27] MEDS: DICYCLOMINE HCL 20 MG TAB PO SCH ×4 (09:45→20:28)
[2022-03-27] MEDS: NYSTATIN 15 GM POWDER UD BTL TOP SCH ×2 (09:45→17:06)
[2022-03-27] MEDS: CHOLESTYRAMINE 4 GM PACKET PO SCH (09:45)
[2022-03-27] MEDS: ATORVASTATIN 40 MG TAB PO SCH (20:28)
[2022-03-28] VITALS (26 sets, daily range): BP systolic 73–108; BP diastolic 48–70
[2022-03-28 05:43] LABS: EOSINOPHILS % 0.7 % (0.0-6.0); HEMATOCRIT 24.4 % (34.2-44.1); HEMOGLOBIN 7.6 g/dL (12.0-16.0); LYMPHOCYTES # (AUTO) 0.6 (1.0-3.2); LYMPHOCYTES % 14.4 % (18.0-39.1); MEAN CORPUSCULAR HEMOGLOBIN 32.6 pg (28-32); MEAN CORPUSCULAR HGB CONC 31.1 g/dL (31-35); MEAN CORPUSCULAR VOLUME 104.7 fL (81-99); MONOCYTES # (AUTO) 0.3 (0.2-0.8); MONOCYTES % 6.2 % (4.4-11.3); NEUTROPHILS # (AUTO) 3.2 (2.1-6.9); NEUTROPHILS % 78.5 % (38.7-80.0); RED BLOOD COUNT 2.33 x10e6/uL (3.6-5.1); RED CELL DISTRIBUTION WIDTH 21.2 % (11.7-14.4)
[2022-03-28 05:53] LABS: PLATELET COUNT 27 x10e3/uL (140-360)
[2022-03-28] MEDS: LEVOTHYROXINE SODIUM 75 MCG TAB PO SCH (06:29)
[2022-03-28] MEDS: FLUDROCORTISONE ACETATE 0.1 MG TAB PO SCH (06:29)
[2022-03-28 06:30] LABS: ANION GAP 13.3 mmol/L (8-16); CALCIUM 7.4 mg/dL (8.4-10.2); CREATININE, SERUM 3.47 mg/dL (0.57-1.11); POTASSIUM 3.3 mmol/L (3.5-5.1)
[2022-03-28] MEDS: SUCRALFATE 1 GM TAB PO SCH ×4 (08:29→20:03)
[2022-03-28] MEDS: ASPIRIN 81 MG CHEW TAB PO SCH (08:30)
[2022-03-28] MEDS: CHOLESTYRAMINE 4 GM PACKET PO SCH (08:30)
[2022-03-28] MEDS: CYANOCOBALAMIN INJ 1,000 MCG/ML VIAL IM SCH (08:30)
[2022-03-28] MEDS: NYSTATIN 15 GM POWDER UD BTL TOP SCH ×2 (08:30→16:32)
[2022-03-28] MEDS: CITALOPRAM HYDROBROMIDE 20 MG TAB PO SCH (08:30)
[2022-03-28] MEDS: AMIODARONE HCL 200 MG TAB PO SCH ×2 (08:30→16:32)
[2022-03-28] MEDS: MIDODRINE HCL 5 MG TABLET PO SCH ×3 (08:30→16:32)
[2022-03-28] MEDS: HYDROCORTISONE 10 MG TAB PO SCH (08:30)
[2022-03-28] MEDS: INSULIN LISPRO 100 UNIT/1 ML 3ML VIAL SQ SCH ×4 (08:34→20:19)
[2022-03-28] MEDS: DICYCLOMINE HCL 20 MG TAB PO SCH ×4 (08:42→20:03)
[2022-03-28] MEDS: ATORVASTATIN 40 MG TAB PO SCH (20:03)
[2022-03-29] VITALS (23 sets, daily range): BP systolic 73–105; BP diastolic 47–66
[2022-03-29 05:36] LABS: EOSINOPHILS % 0.6 % (0.0-6.0); HEMATOCRIT 25.2 % (34.2-44.1); LYMPHOCYTES # (AUTO) 1.2 (1.0-3.2); LYMPHOCYTES % 22.6 % (18.0-39.1); MEAN CORPUSCULAR HEMOGLOBIN 32.8 pg (28-32); MEAN CORPUSCULAR HGB CONC 31.7 g/dL (31-35); MEAN CORPUSCULAR VOLUME 103.3 fL (81-99); MONOCYTES # (AUTO) 0.4 (0.2-0.8); MONOCYTES % 6.5 % (4.4-11.3); NEUTROPHILS # (AUTO) 3.8 (2.1-6.9); NEUTROPHILS % 69.9 % (38.7-80.0); RED BLOOD COUNT 2.44 x10e6/uL (3.6-5.1); RED CELL DISTRIBUTION WIDTH 21.2 % (11.7-14.4)
[2022-03-29 05:40] LABS: PLATELET COUNT 35 x10e3/uL (140-360)
[2022-03-29 05:47] LABS: INR 1.8; PROTHROMBIN TIME 22.3 seconds (11.9-14.5)
[2022-03-29 06:02] LABS: ALBUMIN 2.5 g/dL (3.5-5.0); ALBUMIN/GLOBULIN RATIO 1.3 (0.8-2.0); ANION GAP 10.1 mmol/L (8-16); CALCIUM 7.4 mg/dL (8.4-10.2); CREATININE, SERUM 4.04 mg/dL (0.57-1.11); POTASSIUM 3.1 mmol/L (3.5-5.1)
[2022-03-29] MEDS: LEVOTHYROXINE SODIUM 75 MCG TAB PO SCH (06:20)
[2022-03-29] MEDS: FLUDROCORTISONE ACETATE 0.1 MG TAB PO SCH (06:20)
[2022-03-29] MEDS ORDERED: ALBUMIN 25% 12.5GM 0.25 GM/ML BTL IV PRN ×2 (07:30→10:30)
[2022-03-29] MEDS ORDERED: SODIUM CHLORIDE 0.9% 1000ML 1,000 ML IV SCH (07:30)
[2022-03-29] MEDS: SUCRALFATE 1 GM TAB PO SCH ×4 (07:38→21:45)
[2022-03-29] MEDS: MIDODRINE HCL 5 MG TABLET PO SCH ×3 (07:42→16:00)
[2022-03-29] MEDS: AMIODARONE HCL 200 MG TAB PO SCH ×2 (08:17→18:45)
[2022-03-29] MEDS: HYDROCORTISONE 10 MG TAB PO SCH (08:17)
[2022-03-29] MEDS: ASPIRIN 81 MG CHEW TAB PO SCH (08:17)
[2022-03-29] MEDS: DICYCLOMINE HCL 20 MG TAB PO SCH ×4 (08:17→21:45)
[2022-03-29] MEDS: CYANOCOBALAMIN INJ 1,000 MCG/ML VIAL IM SCH (08:17)
[2022-03-29] MEDS: CITALOPRAM HYDROBROMIDE 20 MG TAB PO SCH (08:17)
[2022-03-29] MEDS: CHOLESTYRAMINE 4 GM PACKET PO SCH (08:18)
[2022-03-29] MEDS: INSULIN LISPRO 100 UNIT/1 ML 3ML VIAL SQ SCH ×4 (08:18→21:46)
[2022-03-29] MEDS: NYSTATIN 15 GM POWDER UD BTL TOP SCH ×2 (09:53→17:00)
[2022-03-29] MEDS ORDERED: SODIUM CHLORIDE 0.9% 1000ML 2,000 ML IV PRN (10:30)
[2022-03-29] MEDS: IRON-VITAMIN-MINERAL CAPSULE PO SCH (12:30)
[2022-03-29] MEDS ORDERED: FLUCONAZOLE 100 MG TAB ONE (21:45)
[2022-03-29] MEDS: ATORVASTATIN 40 MG TAB PO SCH (21:46)
[2022-03-30] VITALS (14 sets, daily range): BP systolic 78–106; BP diastolic 50–67
[2022-03-30 05:13] LABS: EOSINOPHILS # (AUTO) 0.1 (0.0-0.4); EOSINOPHILS % 1.4 % (0.0-6.0); HEMATOCRIT 23.8 % (34.2-44.1); HEMOGLOBIN 7.5 g/dL (12.0-16.0); LYMPHOCYTES % 20.4 % (18.0-39.1); MEAN CORPUSCULAR HEMOGLOBIN 32.9 pg (28-32); MEAN CORPUSCULAR HGB CONC 31.5 g/dL (31-35); MEAN CORPUSCULAR VOLUME 104.4 fL (81-99); MONOCYTES # (AUTO) 0.4 (0.2-0.8); MONOCYTES % 7.8 % (4.4-11.3); NEUTROPHILS # (AUTO) 3.4 (2.1-6.9); RED BLOOD COUNT 2.28 x10e6/uL (3.6-5.1); RED CELL DISTRIBUTION WIDTH 21.6 % (11.7-14.4)
[2022-03-30 05:25] LABS: PLATELET COUNT 37 x10e3/uL (140-360)
[2022-03-30 05:27] LABS: ALBUMIN 2.5 g/dL (3.5-5.0); ANION GAP 12.2 mmol/L (8-16); CALCIUM 7.2 mg/dL (8.4-10.2); CREATININE, SERUM 3.43 mg/dL (0.57-1.11); POTASSIUM 3.2 mmol/L (3.5-5.1)
[2022-03-30] MEDS: LEVOTHYROXINE SODIUM 75 MCG TAB PO SCH (06:05)
[2022-03-30] MEDS: FLUDROCORTISONE ACETATE 0.1 MG TAB PO SCH (06:05)
[2022-03-30] MEDS: SUCRALFATE 1 GM TAB PO SCH ×4 (07:28→20:49)
[2022-03-30] MEDS: MIDODRINE HCL 5 MG TABLET PO SCH ×3 (07:28→17:00)
[2022-03-30] MEDS: AMIODARONE HCL 200 MG TAB PO SCH ×2 (08:51→17:12)
[2022-03-30] MEDS: IRON-VITAMIN-MINERAL CAPSULE PO SCH (08:51)
[2022-03-30] MEDS: ASPIRIN 81 MG CHEW TAB PO SCH (08:51)
[2022-03-30] MEDS: CYANOCOBALAMIN INJ 1,000 MCG/ML VIAL IM SCH (08:51)
[2022-03-30] MEDS: HYDROCORTISONE 10 MG TAB PO SCH (08:51)
[2022-03-30] MEDS: CITALOPRAM HYDROBROMIDE 20 MG TAB PO SCH (08:51)
[2022-03-30] MEDS: DICYCLOMINE HCL 20 MG TAB PO SCH ×5 (08:51→20:49)
[2022-03-30] MEDS: CHOLESTYRAMINE 4 GM PACKET PO SCH (08:51)
[2022-03-30] MEDS: INSULIN LISPRO 100 UNIT/1 ML 3ML VIAL SQ SCH ×4 (08:51→20:49)
[2022-03-30] MEDS: NYSTATIN 15 GM POWDER UD BTL TOP SCH ×2 (09:07→17:12)
[2022-03-30] MEDS ORDERED: POTASSIUM CHLORIDE 20 MEQ TAB CR PO ONE (10:15)
[2022-03-30] MEDS: ATORVASTATIN 40 MG TAB PO SCH (20:49)
[2022-03-30] MEDS ORDERED: SODIUM CHLORIDE 0.9% 250ML 250 ML ONE (20:56)
[2022-03-31] VITALS (9 sets, daily range): BP systolic 92–109; BP diastolic 46–69
[2022-03-31] MEDS: LEVOTHYROXINE SODIUM 75 MCG TAB PO SCH (05:45)
[2022-03-31] MEDS: FLUDROCORTISONE ACETATE 0.1 MG TAB PO SCH (05:45)
[2022-03-31 06:24] LABS: ALBUMIN 2.5 g/dL (3.5-5.0); ALBUMIN/GLOBULIN RATIO 0.9 (0.8-2.0); ANION GAP 11.6 mmol/L (8-16); CALCIUM 7.1 mg/dL (8.4-10.2); CREATININE, SERUM 4.37 mg/dL (0.57-1.11); MAGNESIUM 1.7 MG/DL (1.3-2.1); PHOSPHORUS 1.5 MG/DL (2.3-4.7); POTASSIUM 3.6 mmol/L (3.5-5.1)
[2022-03-31] MEDS ORDERED: SODIUM CHLORIDE 0.9% 250ML 250 ML IV ONE (10:45)
[2022-03-31] MEDS: SUCRALFATE 1 GM TAB PO SCH ×4 (11:25→20:57)
[2022-03-31] MEDS: INSULIN LISPRO 100 UNIT/1 ML 3ML VIAL SQ SCH ×4 (11:26→20:57)
[2022-03-31] MEDS: MIDODRINE HCL 5 MG TABLET PO SCH ×3 (11:28→16:50)
[2022-03-31] MEDS: CYANOCOBALAMIN INJ 1,000 MCG/ML VIAL IM SCH (11:28)
[2022-03-31] MEDS: ASPIRIN 81 MG CHEW TAB PO SCH (11:30)
[2022-03-31] MEDS: DICYCLOMINE HCL 20 MG TAB PO SCH ×4 (11:31→20:57)
[2022-03-31] MEDS: CITALOPRAM HYDROBROMIDE 20 MG TAB PO SCH (11:31)
[2022-03-31] MEDS: IRON-VITAMIN-MINERAL CAPSULE PO SCH (11:32)
[2022-03-31] MEDS: AMIODARONE HCL 200 MG TAB PO SCH ×2 (11:32→18:27)
[2022-03-31] MEDS: HYDROCORTISONE 10 MG TAB PO SCH (11:32)
[2022-03-31] MEDS: NYSTATIN 15 GM POWDER UD BTL TOP SCH ×2 (11:33→18:27)
[2022-03-31] MEDS: CHOLESTYRAMINE 4 GM PACKET PO SCH (11:33)
[2022-03-31] MEDS: ATORVASTATIN 40 MG TAB PO SCH (20:57)
[2022-03-31] MEDS: ACETAMINOPHEN 325 MG TAB PO PRN (22:46)
[2022-04-01] VITALS (7 sets, daily range): BP systolic 92–101; BP diastolic 50–84
[2022-04-01] MEDS: LEVOTHYROXINE SODIUM 75 MCG TAB PO SCH (06:35)
[2022-04-01] MEDS: FLUDROCORTISONE ACETATE 0.1 MG TAB PO SCH (06:35)
[2022-04-01] MEDS: ACETAMINOPHEN 325 MG TAB PO PRN (07:26)
[2022-04-01] MEDS: INSULIN LISPRO 100 UNIT/1 ML 3ML VIAL SQ SCH ×4 (07:30→21:43)
[2022-04-01] MEDS: MIDODRINE HCL 5 MG TABLET PO SCH ×3 (08:00→18:19)
[2022-04-01 08:56] LABS: BASOPHILS % 0.2 % (0.0-1.0); EOSINOPHILS % 0.7 % (0.0-6.0); HEMATOCRIT 29.7 % (34.2-44.1); HEMOGLOBIN 9.4 g/dL (12.0-16.0); LYMPHOCYTES # (AUTO) 1.1 (1.0-3.2); LYMPHOCYTES % 19.9 % (18.0-39.1); MEAN CORPUSCULAR HEMOGLOBIN 32.8 pg (28-32); MEAN CORPUSCULAR HGB CONC 31.6 g/dL (31-35); MEAN CORPUSCULAR VOLUME 103.5 fL (81-99); MONOCYTES # (AUTO) 0.5 (0.2-0.8); MONOCYTES % 8.4 % (4.4-11.3); NEUTROPHILS # (AUTO) 3.9 (2.1-6.9); NEUTROPHILS % 70.4 % (38.7-80.0); RED BLOOD COUNT 2.87 x10e6/uL (3.6-5.1); RED CELL DISTRIBUTION WIDTH 22.4 % (11.7-14.4)
[2022-04-01 09:04] LABS: PLATELET COUNT 44 x10e3/uL (140-360)
[2022-04-01 09:28] LABS: ANION GAP 12.4 mmol/L (8-16); CALCIUM 7.4 mg/dL (8.4-10.2); CREATININE, SERUM 3.17 mg/dL (0.57-1.11); POTASSIUM 3.4 mmol/L (3.5-5.1)
[2022-04-01] MEDS: AMIODARONE HCL 200 MG TAB PO SCH ×2 (10:22→18:19)
[2022-04-01] MEDS: DICYCLOMINE HCL 20 MG TAB PO SCH ×4 (10:22→21:43)
[2022-04-01] MEDS: CITALOPRAM HYDROBROMIDE 20 MG TAB PO SCH (10:22)
[2022-04-01] MEDS: ASPIRIN 81 MG CHEW TAB PO SCH (10:22)
[2022-04-01] MEDS: IRON-VITAMIN-MINERAL CAPSULE PO SCH (10:22)
[2022-04-01] MEDS: CYANOCOBALAMIN INJ 1,000 MCG/ML VIAL IM SCH (10:22)
[2022-04-01] MEDS: HYDROCORTISONE 10 MG TAB PO SCH (10:22)
[2022-04-01] MEDS: NYSTATIN 15 GM POWDER UD BTL TOP SCH (10:29)
[2022-04-01] MEDS: CHOLESTYRAMINE 4 GM PACKET PO SCH (10:29)
[2022-04-01] MEDS: SUCRALFATE 1 GM TAB PO SCH ×4 (10:29→21:43)
[2022-04-01] MEDS: ATORVASTATIN 40 MG TAB PO SCH (21:43)
[2022-04-02] VITALS (7 sets, daily range): BP systolic 94–103; BP diastolic 48–62
[2022-04-02] MEDS: FLUDROCORTISONE ACETATE 0.1 MG TAB PO SCH (05:33)
[2022-04-02] MEDS: LEVOTHYROXINE SODIUM 75 MCG TAB PO SCH (05:33)
[2022-04-02 07:29] LABS: BASOPHILS % 0.3 % (0.0-1.0); EOSINOPHILS # (AUTO) 0.1 (0.0-0.4); EOSINOPHILS % 0.9 % (0.0-6.0); HEMATOCRIT 30.3 % (34.2-44.1); HEMOGLOBIN 9.5 g/dL (12.0-16.0); LYMPHOCYTES # (AUTO) 1.2 (1.0-3.2); LYMPHOCYTES % 18.5 % (18.0-39.1); MEAN CORPUSCULAR HEMOGLOBIN 32.6 pg (28-32); MEAN CORPUSCULAR HGB CONC 31.4 g/dL (31-35); MEAN CORPUSCULAR VOLUME 104.1 fL (81-99); MONOCYTES # (AUTO) 0.5 (0.2-0.8); NEUTROPHILS # (AUTO) 4.8 (2.1-6.9); PLATELET COUNT 52 x10e3/uL (140-360); RED BLOOD COUNT 2.91 x10e6/uL (3.6-5.1); RED CELL DISTRIBUTION WIDTH 21.8 % (11.7-14.4)
[2022-04-02 07:50] LABS: ALBUMIN 2.5 g/dL (3.5-5.0); ALBUMIN/GLOBULIN RATIO 0.8 (0.8-2.0); ANION GAP 14.9 mmol/L (8-16); CALCIUM 7.6 mg/dL (8.4-10.2); CREATININE, SERUM 3.81 mg/dL (0.57-1.11); POTASSIUM 3.9 mmol/L (3.5-5.1)
[2022-04-02] MEDS: AMIODARONE HCL 200 MG TAB PO SCH ×2 (08:30→17:09)
[2022-04-02] MEDS: SUCRALFATE 1 GM TAB PO SCH ×4 (08:36→21:00)
[2022-04-02] MEDS: INSULIN LISPRO 100 UNIT/1 ML 3ML VIAL SQ SCH ×4 (08:36→21:00)
[2022-04-02] MEDS: ASPIRIN 81 MG CHEW TAB PO SCH (08:36)
[2022-04-02] MEDS: MIDODRINE HCL 5 MG TABLET PO SCH ×3 (08:36→17:09)
[2022-04-02] MEDS: DICYCLOMINE HCL 20 MG TAB PO SCH ×4 (08:36→21:00)
[2022-04-02] MEDS: CITALOPRAM HYDROBROMIDE 20 MG TAB PO SCH (08:36)
[2022-04-02] MEDS: HYDROCORTISONE 10 MG TAB PO SCH (08:37)
[2022-04-02] MEDS: IRON-VITAMIN-MINERAL CAPSULE PO SCH (08:37)
[2022-04-02] MEDS: CYANOCOBALAMIN INJ 1,000 MCG/ML VIAL IM SCH (08:42)
[2022-04-02] MEDS: CHOLESTYRAMINE 4 GM PACKET PO SCH (10:18)
[2022-04-02] MEDS: PANTOPRAZOLE SOD 40 MG TABEC PO SCH (17:09)
[2022-04-02] MEDS: ATORVASTATIN 40 MG TAB PO SCH (21:00)
[2022-04-03] VITALS (7 sets, daily range): BP systolic 90–105; BP diastolic 53–69
[2022-04-03] MEDS: FLUDROCORTISONE ACETATE 0.1 MG TAB PO SCH (05:48)
[2022-04-03] MEDS: LEVOTHYROXINE SODIUM 75 MCG TAB PO SCH (05:48)
[2022-04-03] MEDS: INSULIN LISPRO 100 UNIT/1 ML 3ML VIAL SQ SCH ×4 (08:00→21:00)
[2022-04-03] MEDS: CHOLESTYRAMINE 4 GM PACKET PO SCH (08:00)
[2022-04-03] MEDS: MIDODRINE HCL 5 MG TABLET PO SCH ×3 (09:05→17:01)
[2022-04-03] MEDS: ASPIRIN 81 MG CHEW TAB PO SCH (09:05)
[2022-04-03] MEDS: HYDROCORTISONE 10 MG TAB PO SCH (09:05)
[2022-04-03] MEDS: AMIODARONE HCL 200 MG TAB PO SCH ×2 (09:05→17:01)
[2022-04-03] MEDS: SUCRALFATE 1 GM TAB PO SCH ×4 (09:05→21:00)
[2022-04-03] MEDS: PANTOPRAZOLE SOD 40 MG TABEC PO SCH ×2 (09:05→17:01)
[2022-04-03] MEDS: CYANOCOBALAMIN INJ 1,000 MCG/ML VIAL IM SCH (09:05)
[2022-04-03] MEDS: DICYCLOMINE HCL 20 MG TAB PO SCH ×4 (09:05→21:00)
[2022-04-03] MEDS: IRON-VITAMIN-MINERAL CAPSULE PO SCH (09:05)
[2022-04-03] MEDS: CITALOPRAM HYDROBROMIDE 20 MG TAB PO SCH (09:05)
[2022-04-03] MEDS: ATORVASTATIN 40 MG TAB PO SCH (21:00)
[2022-04-03] MEDS: ACETAMINOPHEN 325 MG TAB PO PRN (23:46)
[2022-04-04] VITALS: BP 103/65
[2022-04-04 04:00] VITALS: BP 94/61
[2022-04-04] MEDS: FLUDROCORTISONE ACETATE 0.1 MG TAB PO SCH (05:44)
[2022-04-04] MEDS: LEVOTHYROXINE SODIUM 75 MCG TAB PO SCH (05:44)
[2022-04-04] MEDS: SUCRALFATE 1 GM TAB PO SCH ×4 (07:30→21:59)
[2022-04-04] MEDS: PANTOPRAZOLE SOD 40 MG TABEC PO SCH ×2 (07:30→17:09)
[2022-04-04] MEDS: MIDODRINE HCL 5 MG TABLET PO SCH ×3 (08:00→17:09)
[2022-04-04 08:36] VITALS: BP 104/63
[2022-04-04] MEDS: AMIODARONE HCL 200 MG TAB PO SCH ×2 (09:00→17:09)
[2022-04-04] MEDS: ASPIRIN 81 MG CHEW TAB PO SCH (09:00)
[2022-04-04] MEDS: IRON-VITAMIN-MINERAL CAPSULE PO SCH (09:00)
[2022-04-04] MEDS: CYANOCOBALAMIN INJ 1,000 MCG/ML VIAL IM SCH (09:00)
[2022-04-04] MEDS: CHOLESTYRAMINE 4 GM PACKET PO SCH (09:00)
[2022-04-04] MEDS: HYDROCORTISONE 10 MG TAB PO SCH (09:00)
[2022-04-04] MEDS: CITALOPRAM HYDROBROMIDE 20 MG TAB PO SCH (09:00)
[2022-04-04] MEDS: DICYCLOMINE HCL 20 MG TAB PO SCH ×4 (09:00→21:59)
[2022-04-04] MEDS: INSULIN LISPRO 100 UNIT/1 ML 3ML VIAL SQ SCH ×4 (11:30→21:00)
[2022-04-04 12:46] VITALS: BP 104/60
[2022-04-04 16:26] VITALS: BP 111/61
[2022-04-04 20:00] VITALS: BP 97/58
[2022-04-04] MEDS: ATORVASTATIN 40 MG TAB PO SCH (21:59)
[2022-04-05] VITALS: BP 104/60
[2022-04-05 04:00] VITALS: BP 98/56
[2022-04-05] MEDS: FLUDROCORTISONE ACETATE 0.1 MG TAB PO SCH (05:37)
[2022-04-05] MEDS: LEVOTHYROXINE SODIUM 75 MCG TAB PO SCH (05:37)
[2022-04-05 06:02] LABS: BASOPHILS % 0.1 % (0.0-1.0); EOSINOPHILS % 0.6 % (0.0-6.0); HEMATOCRIT 28.1 % (34.2-44.1); HEMOGLOBIN 9.1 g/dL (12.0-16.0); LYMPHOCYTES # (AUTO) 1.1 (1.0-3.2); MEAN CORPUSCULAR HEMOGLOBIN 33.2 pg (28-32); MEAN CORPUSCULAR HGB CONC 32.4 g/dL (31-35); MEAN CORPUSCULAR VOLUME 102.6 fL (81-99); MONOCYTES # (AUTO) 0.4 (0.2-0.8); MONOCYTES % 5.9 % (4.4-11.3); NEUTROPHILS # (AUTO) 5.5 (2.1-6.9); PLATELET COUNT 62 x10e3/uL (140-360); RED BLOOD COUNT 2.74 x10e6/uL (3.6-5.1); RED CELL DISTRIBUTION WIDTH 20.9 % (11.7-14.4)
[2022-04-05 06:16] LABS: ALBUMIN 2.2 g/dL (3.5-5.0); ALBUMIN/GLOBULIN RATIO 0.7 (0.8-2.0); ANION GAP 16.9 mmol/L (8-16); CALCIUM 7.5 mg/dL (8.4-10.2); CREATININE, SERUM 4.21 mg/dL (0.57-1.11); POTASSIUM 3.9 mmol/L (3.5-5.1)
[2022-04-05] MEDS: SUCRALFATE 1 GM TAB PO SCH ×4 (07:30→16:29)
[2022-04-05] MEDS: INSULIN LISPRO 100 UNIT/1 ML 3ML VIAL SQ SCH ×4 (07:30→16:30)
[2022-04-05] MEDS: PANTOPRAZOLE SOD 40 MG TABEC PO SCH ×2 (07:30→16:29)
[2022-04-05] MEDS: MIDODRINE HCL 5 MG TABLET PO SCH ×3 (08:00→16:29)
[2022-04-05 08:15] VITALS: BP 92/54
[2022-04-05 08:34] VITALS: BP 92/54
[2022-04-05] MEDS: CYANOCOBALAMIN INJ 1,000 MCG/ML VIAL IM SCH ×2 (09:00→13:02)
[2022-04-05] MEDS: CHOLESTYRAMINE 4 GM PACKET PO SCH ×2 (09:00→13:02)
[2022-04-05] MEDS: AMIODARONE HCL 200 MG TAB PO SCH ×2 (09:00→16:30)
[2022-04-05] MEDS: IRON-VITAMIN-MINERAL CAPSULE PO SCH ×2 (09:00→13:02)
[2022-04-05] MEDS: HYDROCORTISONE 10 MG TAB PO SCH ×2 (09:00→13:02)
[2022-04-05] MEDS: DICYCLOMINE HCL 20 MG TAB PO SCH ×3 (09:00→16:30)
[2022-04-05] MEDS: CITALOPRAM HYDROBROMIDE 20 MG TAB PO SCH ×2 (09:00→13:02)
[2022-04-05] MEDS: ASPIRIN 81 MG CHEW TAB PO SCH ×2 (09:00→13:02)
[2022-04-05 12:58] VITALS: BP 98/51
[2022-04-05 17:32] VITALS: BP 98/62
== END 2022-04-05 19:04 | DRG 291 ==
LOC: ER 15:20 → ERHOLD 16:47 → ICU 18:21 → MED/SURG2 03-30 12:17
PROVIDERS: ADMIT Internal Medicine; ATTEND Internal Medicine
PROC: 30233N1 Transfusion of Nonautologous Red Blood Cells into Peripheral Vein, Percutaneous Approach (ICD-10-PCS; principal; 2022-03-12)
PROC: 5A1D70Z Performance of Urinary Filtration, Intermittent, Less than 6 Hours Per Day (ICD-10-PCS; 2022-03-12)
PROC: 30243R1 Transfusion of Nonautologous Platelets into Central Vein, Percutaneous Approach (ICD-10-PCS; 2022-03-12)
PROC: 02H633Z Insertion of Infusion Device into Right Atrium, Percutaneous Approach (ICD-10-PCS; 2022-03-18)
PROC: B5181ZA Fluoroscopy of Superior Vena Cava using Low Osmolar Contrast, Guidance (ICD-10-PCS; 2022-03-18)
PROC: 30243L1 Transfusion of Nonautologous Fresh Plasma into Central Vein, Percutaneous Approach (ICD-10-PCS; 2022-03-18)
PROC: 30243K1 Transfusion of Nonautologous Frozen Plasma into Central Vein, Percutaneous Approach (ICD-10-PCS; 2022-03-18)
PROC: 5A09357 Assistance with Respiratory Ventilation, Less than 24 Consecutive Hours, Continuous Positive Airway Pressure (ICD-10-PCS; 2022-03-20)
PROC: 5A09357 Assistance with Respiratory Ventilation, Less than 24 Consecutive Hours, Continuous Positive Airway Pressure (ICD-10-PCS; 2022-03-21)
PROC: 5A09357 Assistance with Respiratory Ventilation, Less than 24 Consecutive Hours, Continuous Positive Airway Pressure (ICD-10-PCS; 2022-03-22)
PROC: 5A09357 Assistance with Respiratory Ventilation, Less than 24 Consecutive Hours, Continuous Positive Airway Pressure (ICD-10-PCS; 2022-03-23)
PROC: 5A0935A Assistance with Respiratory Ventilation, Less than 24 Consecutive Hours, High Flow/Velocity Cannula (ICD-10-PCS; 2022-03-24)
DX: I13.2 Hypertensive heart and chronic kidney disease with heart failure and with stage 5 chronic kidney disease, or end stage renal disease (principal); N18.6 End stage renal disease; J96.01 Acute respiratory failure with hypoxia; I50.33 Acute on chronic diastolic (congestive) heart failure; E87.2 Acidosis; K76.6 Portal hypertension; N39.0 Urinary tract infection, site not specified; I48.20 Chronic atrial fibrillation, unspecified; D61.818 Other pancytopenia; E83.51 Hypocalcemia; E11.22 Type 2 diabetes mellitus with diabetic chronic kidney disease; I95.89 Other hypotension; Z99.2 Dependence on renal dialysis; Z86.73 Personal history of transient ischemic attack (TIA), and cerebral infarction without residual deficits; D50.0 Iron deficiency anemia secondary to blood loss (chronic); R19.7 Diarrhea, unspecified; E88.09 Other disorders of plasma-protein metabolism, not elsewhere classified; E78.5 Hyperlipidemia, unspecified; E87.6 Hypokalemia; E03.9 Hypothyroidism, unspecified; R63.0 Anorexia; Z68.31 Body mass index [BMI] 31.0-31.9, adult
CPT/HCPCS: 36415; 36556; 36600; 49083; 71045; 74470; 76700; 76937; 77001; 80048; 80053; 82270; 82550; 82553; 82607; 82746; 82805; 82948; 83540; 83605; 83630; 83735; 83880; 83993; 84100; 84439; 84443; 84466; 84484; 85025; 85045; 85610; 85730; 86141; 86705; 86706; 86850; 86900; 86920; 87040; 87045; 87177; 87340; 87493; 90962; 93005; 94660; 94799; 96360; 96372; 97139; 99251; 99284; J0696; J1160; J1450; J1720; J1756; J2001; J2060; J2185; J3370; J3420; J3475; J7030; J7040; J7050; P9016; P9017; P9034; P9045; P9047; U0002